=== PATIENT | female | born 1935 | race Caucasian/White ===

== ENCOUNTER 2019-09-13 08:00 | Outpatient (CLI) | payer MEDICARE, OTHER, SELFPAY ==
--- NOTE | 2019-09-13 | XR_ITS ---
WS: [id number] RIGHT HIP HISTORY: RT HIP PAIN X 1 MONTH COMPARISON: 01/05/2019 Right hip: No acute fracture or dislocation. Prior RIGHT hip arthroplasty. No lucency around the hard kendall. Femoral head component situated centrally within the acetabular component. XR/XR hip RT 2-3V wo/w pel* [id number] IMPRESSION: 1. No hip fracture. 2. Prior RIGHT hip arthroplasty with no evidence for loosening.
== END 2019-09-13 08:01 | disposition home or self-care (01) ==
LOC: RADOUTREAD 11:37
PROVIDERS: Family Provider Internal Medicine; PCP Internal Medicine; Visit Provider Internal Medicine
DX: Z01.89 Encounter for other specified special examinations (principal)

== ENCOUNTER 2020-02-07 10:28 | Outpatient (CLI) | payer MEDICARE, OTHER, SELFPAY ==
--- NOTE | 2020-02-07 10:49 | MR_ITS ---
WS: [id number] MRI LUMBAR SPINE NONCONTRAST HISTORY: LUMBAR BACK PAIN/RADICULOPATHY AFFECTING RT LOWER EXTREMITY COMPARISON: 04/01/2010 TECHNIQUE: Sagittal and axial multisequence imaging is submitted. Mild increase in the cervical lordosis and thoracic kyphosis. Degenerative spondylitic changes throug hout the cervical and thoracic spine with mild RIGHT convex thoracic scoliosis. Moderate LEFT convex curvature the lumbar spine. Mild straightening of the normal lordosis. Moderate degenerative disc space narrowing most significant at L3-4. S1 is partially lumbarized. No acute amina ow edema. There is mild anterior wedging of L1 from a prior compression fracture. Benign hemangioma i n T11. Conus terminates normally at L1-2 disc level. Quality of this examination is limited by patient motion artifact. L1-L2: Mild facet arthropathy. No stenosis. L2-L3: Diffuse annular disc bulging is asymmetric to the LEFT. LEFT foraminal broad-based disc protru luis enrique with effacement of fat. Encroachment upon the central canal by facet disease. Mild central and b ilateral subarticular recess stenosis. [id number] LEFT foraminal stenosis. L3-L4: Moderate annular disc bulging with facet and ligamentum flavum arthritis. Mild central and sub articular recess and RIGHT foraminal stenosis. Moderate LEFT foraminal stenosis. L4-L5: Diffuse annular disc bulging. There is marked ligamentum flavum disease and facet arthritis. S evere central and bilateral subarticular recess stenosis with severe RIGHT foraminal stenosis and mod erate to severe LEFT foraminal stenosis. L5-S1: Diffuse annular disc bulging and osteophytic ridging. Moderate narrowing of the central canal and RIGHT foramen. Severe LEFT subarticular recess and LEFT foraminal stenosis. MR/MR lumbar spine wo con* [id number] IMPRESSION: 1. Moderate progression of spondylitic changes and stenosis throughout the lum bar spine since 04/01/2010. 2. Remote L1 compression fracture by 10%. 3. Severe central, bilateral subarticular recess and RIGHT foraminal stenosis at L4-5 with moderate to severe LEFT foraminal stenosis. 4. Severe LEFT subarticular recess and foraminal stenosis at L5-S1 and moderat e on the RIGHT. 5. Mild to moderate LEFT foraminal stenosis at L2-3 and L3-4.
== END 2020-02-07 10:29 | disposition home or self-care (01) ==
LOC: RADWPI 10:37
PROVIDERS: Family Provider Internal Medicine; PCP Internal Medicine; Visit Provider Internal Medicine
DX: M54.16 Radiculopathy, lumbar region (principal); M79.604 Pain in right leg; S32.019A Unspecified fracture of first lumbar vertebra, initial encounter for closed fracture; M48.061 Spinal stenosis, lumbar region without neurogenic claudication; M48.07 Spinal stenosis, lumbosacral region
CPT/HCPCS: 72148

== ENCOUNTER 2020-08-18 11:28 | Emergency (ER) | payer MEDICARE, OTHER, SELFPAY ==
[2020-08-18 11:34] VITALS: BP 197/118; PULSE 67; RESP 68; TEMP 36.9; O2SAT 100; BMI 24.0
--- NOTE | 2020-08-18 11:39 | XRR_ITS ---
PROCEDURE INFORMATION: Exam: XR Nasal Bones, Minimum of 3 Views, Complete Exam date and time: 08/18/2020 12:39 PM Age: 84 years old Clinical indication: Injury or trauma; Fall; Blunt trauma (contusions or hematomas); Nose; Additional info: Fall trauma TECHNIQUE: Imaging protocol: XR of the nasal bones, minimum of 3 views. Complete exam. COMPARISON: No relevant prior studies available. FINDINGS: Sinuses: The paranasal sinuses are clear. Nasal cavity/Septum: The bony nasal septum appears intact. Bones/joints: Comminuted nasal bone fracture. The anterior maxillary spine is intact. Soft tissues: Superficial soft tissue swelling overlying the bridge of the nose. XR/XR nasal bones min 3V [id number] IMPRESSION: Comminuted nasal bone fracture.
--- NOTE | 2020-08-18 11:39 | XRR_ITS ---
PROCEDURE INFORMATION: Exam: XR Right Knee Exam date and time: 08/18/2020 12:41 PM Age: 84 years old Clinical indication: Pain; Knee; Right; Additional info: Fall pain TECHNIQUE: Imaging protocol: XR Right knee. Views: 3 views. COMPARISON: No relevant prior studies available. FINDINGS: Bones/joints: No fracture. No dislocation. Mild degeneration of the patellofemoral joint compartment. There is chondrocalcinosis. No joint effusion. Soft tissues: No acute soft tissue abnormality. XR/XR knee RT 3V* [id number] IMPRESSION: No acute osseous abnormality.
--- NOTE | 2020-08-18 12:03 | ED_ITS ---
HPI - Fall General: Chief Complaint: Fall Stated Complaint: NOSE BLEED KNEE PAIN POST FALL Time Seen by Provider: 08/18/20 11:29 History of Present Illness: HPI Narrative: 84-year-old female presents to the emergency room with complaint of a fall. She is on Plavix she was leaning over to pick something up tried to catch herself on a post missed the post and went down landed on her face she has deformity to her nose and quite a bit of bleeding. She denies loss of consciousness she also has pain to her right knee previously had a right knee arthroplasty MD complaint: fall Onset (ago): minute(s) Fall from: chair Fall witnessed: yes, by family Loss of consciousness: None Prolonged down time: no Symptoms prior to fall: none Context: tripped/slipped Location of injury: face Severity: mild Quality: sharp and throbbing Associated symptoms-after fall: Denies abdominal pain, chest pain, confusion, difficulty walking, headache(s), hematuria, lightheadedness, neck pain, numbness, short of breath, vertigo or weakness Review of Systems Const: Denies: fever(s), chills, body aches, change in appetite, fatigue or malaise ENMT: Denies: throat pain, ear or mastoid pain, nasal discharge or nasal congestion Card: Denies: chest pain or lightheadedness Resp: Denies: dyspnea, productive cough or non-productive cough GI: Denies: abdominal pain : Denies: hematuria Musc: Denies: neck pain Skin/Breast: Denies: rash or pruritus Neuro: Denies: headache(s), difficulty walking, vertigo or confusion PFS ED PFSH: Medical History Arrhythmia ASHD (arteriosclerotic heart disease) Asymptomatic superficial varicosities of lower extremity, bilateral Benign essential hypertension Bilateral edema of lower extremity dependent mostly Bilateral hip pain Chronic obstructive pulmonary emphysema Diabetes Diastolic dysfunction Dilated aortic root [place], bilateral Intermittent palpitations Mixed hyperlipidemia 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 Poor compliance PVD (peripheral vascular disease) Vaginal prolapse Surgical History H/O: hysterectomy History of appendectomy History of cholecystectomy History of tonsillectomy S/P selective transsphenoidal pituitary adenomectomy Family History Other CAD (coronary artery disease) Cancer Diabetes Hypertension Stroke Social History Smoking and tobacco status: never smoked Alcohol intake: never Physical Exam Const: COMMON NORMALS: average body habitus, patient oriented x3 and alert GENERAL APPEARANCE: cooperative, comfortable, well kempt and well developed NUTRITIONAL APPEARANCE: obese ORIENTATION/CONSCIOUSNESS: Yes awake, Yes oriented to person and Yes oriented to place HENMT: COMMON NORMALS: normocephalic, EAC's normal, TM's normal bilaterally, Normal external nose present, moist oral mucous membranes and oropharynx normal HEAD & SCALP: normocephalic NOSE: Normal external nose present EXTERNAL AUDITORY CANAL: EAC's normal TYMPANIC MEMBRANE: TM's normal bilaterally MOUTH: Normal oral and palatal mucosa present, lip normal and tongue normal THROAT: posterior oropharynx normal and tonsils normal OTHER: Abrasion of the bridge of the nose with a small skin tear. Not actively bleeding initially and she rather small amount of blood from the nares this resolved spontaneously. X- ray shows nasal bone fracture with minimal displacement Eye: COMMON NORMALS: Equal, round and reactive pupils present, EOMs intact bilaterally, conjunctivae normal and no scleral icterus CONJUNCTIVA: Yes conjunctivae normal PUPIL: Yes Equal, round and reactive pupils present Neck/C-Spine: COMMON NORMALS: full ROM, no lymphadenopathy, supple, no meningeal signs and Thyroid normal THYROID: Thyroid normal and asymmetrical Lymph: LYMPHATIC: no lymphadenopathy noted Resp: COMMON NORMALS: normal respiratory effort, No retractions, No use of accessory muscles and clear to auscultation bilaterally AUSCULTATION: clear to auscultation bilaterally Cardio: COMMON NORMALS: regular rate and regular rhythm RATE: regular rate RHYTHM: regular rhythm HEART SOUNDS: no murmurs GI: COMMON NORMALS: Normal to inspection, nondistended, normoactive bowel sounds present, Soft to palpation and No hepatosplenomegaly present PALPATION: Yes Soft to palpation and Yes No hepatosplenomegaly present : COMMON NORMALS: Yes no CVA tenderness BLADDER/KIDNEY EXAM: Yes no CVA tenderness Back/Pelvis: COMMON NORMALS: no CVA tenderness LUMBAR SPINE/LOWER BACK: Yes normal to inspection Extremity: COMMON NORMALS: no clubbing, cyanosis or edema, no calf tenderness and no pedal edema Neuro: COMMON NORMALS: patient oriented x3 SENSORIUM/ORIENTATION: Yes alert, Yes oriented to person and Yes oriented to place MENINGEAL SIGNS: Yes no meningeal signs Psych: APPEARANCE: Yes well kempt Skin: COMMON NORMALS: no rashes or lesions noted and turgor normal GENERAL SKIN EXAM: no rashes or lesions noted and turgor normal Course Vital Signs: Vital signs: Vital Signs Temperature 98.5 F 08/18/20 13:19 Pulse Rate 73 08/18/20 13:19 Respiratory Rate 21 H 08/18/20 13:19 Blood Pressure 204/104 08/18/20 13:19 Pulse Oximetry 73 L 08/18/20 13:19 MDM - Fall MDM Narrative: Medical decision making narrative: Refer to ENT for follow-up of the nasal bone fracture. Reviewed the remaining findings with the patient labs otherwise unremarkable. Her initial fall was just she is reaching forward to something in a chair and reach for post to steady herself when she missed that she fell forward and landed basically without any defense on her face. She has some swelling there now but is otherwise doing okay will discharge home fo llow-up as needed Lab Data: Labs: Lab Results 08/18/20 08/18/20 Range/Units 12:00 12:00 WBC 6.3 (4.0-10.0) 10^3/ uL RBC 4.57 (4.1-5.3) 10^6/u L Hgb 13.3 (11.5-15.3) g/dL Hct 40.6 (37.0-47.0) % MCV 88.8 (81-99) fL MCH 29.1 (28.0-34.0) pg MCHC 32.8 (30.0-36.0) g/dL RDW 12.8 (12.1-15.1) % Plt Count 323 (130-400) 10^3/c mm MPV 9.0 (7.4-10.4) fL Neut % (Auto) 61.8 % Lymph % (Auto) 27.8 % [place] % (Auto) 7.2 % Eos % (Auto) 2.1 % Baso % (Auto) 0.6 % Neut # (Auto) 3.89 (1.8-7.7) 10^3/u L Lymph # (Auto) 1.8 (0.8-4.8) 10^3/u L [place] # (Auto) 0.5 (0.2-0.9) 10^3/u L Eos # (Auto) 0.1 (0.0-0.8) 10^3/u L Baso # (Auto) 0.0 (0.0-0.1) 10^3/u L Nucleated RBC % (a uto) 0 % Nucleated RBCs # 0.0 /100WBC Sodium 132 L (136-145) mmol/L Potassium 4.2 (3.5-5.1) mmol/L Chloride 96 L (98-107) mmol/L Carbon Dioxide 24 (22-29) mmol/L Anion Gap 16.2 (5-19) BUN 10 (8-23) mg/dL Creatinine 0.6 (0.5-0.9) mg/dL GFR Calculation Not Reportable Glucose 134 H (65-115) mg/dL Calculated Osmolal ity 275 L (285-295) mOsm/k g Calcium 10.4 (8.5-10.5) mg/dL Discharge Plan Discharge Patient Disposition: Home Clinical Impression: Fall, Fracture of nasal bone Condition: Stable Prescriptions: New mupirocin 2 % ointment 1 applic topical BID Qty: 15 RF: 0 No Action Lactobacillus acidophilus Capsule 500 mmu cells PO DAILY RF: 0 diclofenac sodium [Voltaren] 1 % gel 2 gm TOPICAL TID PRNRF: 0 alprazolam 0.25 mg tablet 0.25 mg PO .prn PRN (Reason: anxiety) RF: 0 metoprolol tartrate 25 mg tablet 12.5 mg PO DAILY RF: 0 lisinopril 40 mg tablet 40 mg PO DAILY 90 Days Qty: 90 RF: 3 (DME) Toe sleeve See Rx Instructions .Route .MEDSUPPLY Qty: 1 RF: 0 chlorthalidone 25 mg tablet See Rx Instructions .ROUTE .COMPLEX Qty: 90 RF: 3 potassium chloride 8 mEq capsule, extended release See Rx Instructions .ROUTE .COMPLEX Qty: 90 RF: 3 clopidogrel 75 mg tablet 75 mg PO DAILY Qty: 90 RF: 3 Discharge Orders: Discharge ED (Routine); Ordered 08/18/20 Ordered By: Anupam De Paz Referrals: Amrit Cornelius DO [Primary Care Provider] - Discharge Activity: Increase activity as tolerated Activity Restrictions/Additional Instructions: Case management will call for referral to ENT for follow-up on the nasal bone fracture Coding Level of Care Code ED [employer] 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
[2020-08-18 12:23] LABS: Basophils % 0.6 %; Eosinophils # 0.1 10^3/uL (0.0-0.8); Eosinophils % 2.1 %; Hematocrit 40.6 % (37.0-47.0); Hemoglobin 13.3 g/dL (11.5-15.3); Lymphocytes # 1.8 10^3/uL (0.8-4.8); Lymphocytes % 27.8 %; Mean Corpuscular HGB Conc 32.8 g/dL (30.0-36.0); Mean Corpuscular Hemoglobin 29.1 pg (28.0-34.0); Mean Corpuscular Volume 88.8 fL (81-99); Monocytes # 0.5 10^3/uL (0.2-0.9); Monocytes % 7.2 %; Neutrophils # 3.89 10^3/uL (1.8-7.7); Neutrophils % 61.8 %; Nucleated Red Blood Cells % 0 %; Platelet Count 323 10^3/cmm (130-400); Red Blood Count 4.57 10^6/uL (4.1-5.3); Red Cell Distribution Width 12.8 % (12.1-15.1); White Blood Count 6.3 10^3/uL (4.0-10.0)
[2020-08-18 12:26] VITALS: BP 198/120; PULSE 70; RESP 21; O2SAT 97
[2020-08-18 12:41] LABS: Anion Gap 16.2 (5-19); Blood Urea Nitrogen 10 mg/dL (8-23); Calcium 10.4 mg/dL (8.5-10.5); Carbon Dioxide 24 mmol/L (22-29); Chloride 96 mmol/L (98-107); Glucose 134 mg/dL (65-115); Osmolality Calculated 275 mOsm/kg (285-295); Potassium 4.2 mmol/L (3.5-5.1); Sodium 132 mmol/L (136-145)
--- NOTE | 2020-08-18 13:14 | PC.NURSE ---
xrays completed patient tolerated well
[2020-08-18 13:16] VITALS: BP 209/109; PULSE 73; RESP 21; O2SAT 97
[2020-08-18 13:19] VITALS: BP 204/104; PULSE 73; RESP 21; TEMP 36.9; O2SAT 73
--- NOTE | 2020-08-18 15:48 | DCPLANNER ---
airport manager had message to schedule a follow up appointment for patient with ENT. airport manager emailed patients information to both Sofía and Gladys at [facility] General Surgery. Patients information will be printed and reviewed. Clinic will call patient with appointment information.
--- NOTE | 2020-08-21 12:20 | DCPLANNER ---
Patient has a follow up appointment scheduled for Monday, August 24, 2020 at 1:[address] Chaparro. Clinic will call patient with appointment information.
--- NOTE | 2020-09-24 15:34 | DCPLANNER ---
Patient had a follow up appointment scheduled with ENT - patient did not attend appointment.
== END 2020-08-18 13:40 | disposition home or self-care (01) ==
PROVIDERS: Emergency Provider Family Medicine; PCP Internal Medicine
DX: S02.2XXA Fracture of nasal bones, initial encounter for closed fracture (principal); Z79.02 Long term (current) use of antithrombotics/antiplatelets; I10 Essential (primary) hypertension; E11.42 Type 2 diabetes mellitus with diabetic polyneuropathy; E78.2 Mixed hyperlipidemia; W18.39XA Other fall on same level, initial encounter
CPT/HCPCS: 12345; 70160; 73562; 80048; 85025; 99282; 99283

== ENCOUNTER → 2020-10-13 13:18 | Outpatient (BNVA) | payer MEDICARE, OTHER, SELFPAY | PROVIDERS: PCP Internal Medicine; Visit Provider Podiatrist Foot & Ankle Surgery | DX: M20.42 Other hammer toe(s) (acquired), left foot (principal); M20.12 Hallux valgus (acquired), left foot; M21.612 Bunion of left foot | CPT/HCPCS: 73630 ==

== ENCOUNTER 2020-11-05 11:03 | Emergency (ER) | payer MEDICARE, OTHER, SELFPAY ==
[2020-11-05 11:13] VITALS: BP 183/98; PULSE 63; RESP 22; TEMP 36.7; O2SAT 100; BMI 24.4
--- NOTE | 2020-11-05 11:26 | CT_ITS ---
WS: [id number] CT FACIAL BONES HISTORY: fell and hit left side of face TECHNIQUE: Images obtained from the supraorbital location through the mandible. Soft tissue and bone windows are reviewed. Coronal and sagittal reformats have also been submitted. DLP: 754.[address] scans at [facility] use at least one of these dose optimization techniques: automat ed exposure control; mA and/or kV adjustment per patient size (includes targeted exams where dose is matched to clinical indication); or iterative reconstruction. COMPARISON: None available. There is very minimal buckling of the LEFT lateral nasal bone suspicious but indeterminate for acute fracture. The buckling was not present in 2009. No zygomatic arch fracture. Hassan of the sinuses are intact. There is complete opacification of the LEFT maxillary sinus which is similar to the study of 2009. There is a small hematoma centered over the LEFT zygomatic arch and just lateral to the orbit. Upper cervical spine is negative. CT/CT facial bones wo con* [id number] IMPRESSION: 1. New minimal buckling of the LEFT nasal bone. This may be acute fracture. Ne w since 2008. 2. Otherwise no acute fractures are identified. 3. Small soft tissue hematoma centered over the LEFT zygomatic arch and latera l orbit.
--- NOTE | 2020-11-05 11:26 | CT_ITS ---
WS: [id number] CT HEAD NONCONTRAST HISTORY: fall and hit head TECHNIQUE: Contiguous axial imaging performed through the brain in 2.5 mm imaging. Bone and soft tiss ue windows. Sagittal and coronal reformats reviewed. All CT scans at [facility] use at ast one of these dose optimization techniques: automated exposure control; mA and/or kV adjustment pe r patient size (includes targeted exams where dose is matched to clinical indication); or iterative r econstruction. DLP: 812.14 mGy.cm COMPARISON: 01/05/2019 No acute intracranial hemorrhage, midline shift or mass effect. Mild atrophy and mild chronic microvascular ischemic changes. No new area of sulcal effacement. Parti ally calcified lesion in the LEFT temporal bone extends towards the temporal lobe measuring 8 mm. No interval change. Probably a calcified meningioma. Ventricles: Normal size with no hydrocephalus. Atherosclerotic changes within the intracranial carotid arteries. Paranasal sinuses: Increase fluid distending the LEFT sphenoid sinus. Mastoid air cells: Well pneumatized. Calvarium and scalp: No skull fracture. Small amount of erythema in the superior LEFT parietal calvar ium. No underlying fracture. CT/CT head wo con* [id number] IMPRESSION: 1. No acute intracranial hemorrhage or edema. 2. Mild cerebral atrophy. 3. Stable calcification in the LEFT middle cranial fossa is probably a meningi jigar. 4. Small LEFT parietal scalp hematoma.
--- NOTE | 2020-11-05 11:26 | CT_ITS ---
WS: [id number] CT CERVICAL SPINE HISTORY: fall and hit head TECHNIQUE: Contiguous 2.5 mm axial imaging performed through the entire cervical spine. Sagittal and coronal reformats also performed. All CT scans at [facility] use at least one of these do se optimization techniques: automated exposure control; mA and/or kV adjustment per patient size (inc ludes targeted exams where dose is matched to clinical indication); or iterative reconstruction. DLP: 357.84 mGy.cm COMPARISON: 11/20/2015 Mild increase in the cervical lordosis. Mild RIGHT curvature of the cervical spine. Lateral masses ar e aligned odontoid is intact. Craniocervical junction is normal. Facet joints are normally aligned. C alcification within the ligament surrounding the odontoid process. No fracture involving the odontoid process. Bilateral facet joint arthritis. No acute-appearing disc protrusions. There is moderate RIG HT foraminal stenosis at C4-5, C5-6 and C6-7. Upper lungs are clear. Mild atherosclerosis aorta. Heavy calcification noted within the region of the RIGHT thyroid. CT/CT cervical spin wo con* [id number] IMPRESSION: 1. No acute cervical spine fracture. 2. Mild degenerative disease and facet arthritis as described above.
--- NOTE | 2020-11-05 11:27 | ED_ITS ---
HPI - Fall General: Chief Complaint: Fall Stated Complaint: FALL Time Seen by Provider: 11/05/20 11:26 History of Present Illness: HPI Narrative: Patient is an 85-year-old female comes to the ED after having a fall. Patient says she got her foot caught under a rug in her home and fell forward. She says she hit the left side of her face and head on the ground. Her glasses broke patient has pain on left side of face, head and neck. Patient took some Tylenol before coming to the ED and says she does not need any meds for pain while here in the ED. Patient is currently on Plavix. Associated symptoms-after fall: Reports headache(s) and neck pain; Denies abdominal pain, chest pain or hematuria Review of Systems Const: Denies: fever(s), chills or fatigue Eyes: Denies: change in vision or eye discomfort ENMT: Denies: throat pain, odynophagia, nasal discharge or nasal congestion Card: Denies: chest pain, palpitations, edema, swelling of feet/ankles, dyspnea on exertion or orthopnea Resp: Denies: dyspnea, productive cough or non-productive cough GI: Denies: abdominal pain, nausea, vomiting, diarrhea, constipation or hematochezia : Denies: flank pain, dysuria or hematuria Musc: Reports: neck pain and back pain (Mid upper back); Denies: extremity swelling Skin/Breast: Reports: new lesions (Contusion above left eyebrow.); Denies: rash Neuro: Reports: headache(s); Denies: numbness in extremities or weakness in extremities [facility] ED PFSH: Medical History Arrhythmia ASHD (arteriosclerotic heart disease) Asymptomatic superficial varicosities of lower extremity, bilateral Benign essential hypertension Bilateral edema of lower extremity dependent mostly Bilateral hip pain Chronic obstructive pulmonary emphysema Diabetes Diastolic dysfunction Dilated aortic root Hammertoe, bilateral Intermittent palpitations Mixed hyperlipidemia 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 Poor compliance PVD (peripheral vascular disease) Vaginal prolapse Surgical History H/O: hysterectomy History of appendectomy History of cholecystectomy History of tonsillectomy S/P selective transsphenoidal pituitary adenomectomy Family History Other CAD (coronary artery disease) Cancer Diabetes Hypertension Stroke Social History Smoking and tobacco status: never smoked Alcohol intake: never Physical Exam Const: COMMON NORMALS: no acute distress, patient oriented x3, healthy appearing and alert GENERAL APPEARANCE: cooperative and comfortable HENMT: COMMON NORMALS: normocephalic HEAD & SCALP: normocephalic and contusion right frontal Head contusion size: 1 cm; no Mcguire's sign, no occipital foramen tenderness and no raccoon eyes FACE & SINUS: ecchymosis on the left periorbital (Above left eyebrow) NOSE: Normal septum present (no septum hematoma seen) MOUTH: Normal oral and palatal mucosa present THROAT: posterior oropharynx normal and uvula midline Eye: COMMON NORMALS: Equal, round and reactive pupils present and EOMs intact bilaterally PUPIL: Yes Equal, round and reactive pupils present Neck/C-Spine: COMMON NORMALS: supple GENERAL: Yes normal visual inspection CERVICAL SPINE: Yes pain with cervical ROM, Yes Cervical spine tenderness, Yes Paracervical muscle tenderness and Yes Trapezius muscle tenderness Resp: COMMON NORMALS: normal respiratory effort, No retractions, No use of accessory muscles and clear to auscultation bilaterally AUSCULTATION: clear to auscultation bilaterally Cardio: COMMON NORMALS: regular rate, regular rhythm, S1 normal heart sound present, S2 normal heart sound present, No gallops present (Cardio), No clicks present (Cardio), No murmurs present (Cardio) and Peripheral pulses 2+ throughout RATE: regular rate RHYTHM: regular rhythm HEART SOUNDS: S1 normal heart sound present and S2 normal heart sound present PERIPHERAL PULS ES: Peripheral pulses 2+ throughout GI: COMMON NORMALS: Normal to inspection, nondistended, normoactive bowel sounds present, Soft to palpation, non-tender and no masses PALPATION: Yes Soft to palpation : COMMON NORMALS: Yes no CVA tenderness BLADDER/KIDNEY EXAM: Yes no CVA tenderness Back/Pelvis: COMMON NORMALS: no CVA tenderness THORACIC SPINE/UPPER BACK: Yes thoracic spinal tenderness and Yes paraspinal muscle tenderness Extremity: COMMON NORMALS: normal to inspection and full ROM NARRATIVE EXTREMITY EXAM: Patient had no extremity pain or tenderness and had full range of motion in extremities upper and lower bilaterally. Patient had no tenderness in the left upper arm upon palpation or with any range of motion. Neuro: COMMON NORMALS: patient oriented x3, CN's II-XII intact bilaterally, moves all extremities, no focal motor deficits and no sensory deficits noted SENSORIUM/ORIENTATION: Yes alert SENSORY EXAM: Yes extremities (intact) MOTOR EXAM: 5/5 motor strength present throughout Skin: GENERAL SKIN EXAM: dry skin Course Vital Signs: Vital signs: Vital Signs Temperature 98.0 F 11/05/20 11:13 Pulse Rate 64 11/05/20 13:59 Respiratory Rate 14 11/05/20 13:59 Blood Pressure 154/83 11/05/20 13:59 Pulse Oximetry 98 11/05/20 13:59 MDM - Fall MDM Narrative: Medical decision making narrative: Patient is an 85-year-old female comes to the ED after having a fall and hitting left side of face and head. Denies any loss of consciousness. Patient's main complaint is neck and upper back pain. Patient has no pain to extremities. Patient appears in no acute distress or pain upon exam. She is alert and oriented x3 and neuro exam was normal. She has a contusion to her forehead and has some tenderness of her cervical spine and paracervical muscle tenderness. Nasal exam shows no septal hematoma seen. Tenderness upon palpation of thoracic spine para spinal muscle tenderness. Posterior aspect of left shoulder blade tender. CT of head and cervical spine showed no acute fractures or findings. CT of thoracic spine showed no acute fractures or findings. CT of facial bones showed nasal bone fracture. X-ray of left shoulder-showed possible hairline fracture of the metadiaphysis of the humerus, but only seen in 1 image. Clinically, patient is having no complaint of left arm pain and has full range of motion of left arm and has no tenderness to palpation of upper left arm. Due to patient having no clinical findings I think this x-ray finding is not accurate. Patient was discharged home and I placed an order with case management for patient to be referred to ear nose and throat doctor to reevaluate nasal fracture. Return to ED precautions given. Told patient to follow-up with her PCP as well in 7 to 10 days for reevaluation. Apply cold pack on neck back to help with symptoms and take [id number] Tylenol for pain. Patient understood and agreed with plan. Imaging Data^: CT Head: Attestation: I personally reviewed and interpreted this imaging study as follows: Radiologist's impression: [address] [place] [address] CT Scan Report Signed Patient: Cristi Vu Unit #: [id number] : 1935 Age/Sex: 85 / F ADM Date: 11/05/20 Loc: ER Room/Bed: Attending Dr: Ordering Provider/Ordering MD: Gustavo Contreras Date of Service: 11/05/20 Procedure(s): CT head wo con* [id number] Accession Number(s): [id number] Report Number: [id number] WS: [id number] CT HEAD NONCONTRAST HISTORY: fall and hit head TECHNIQUE: Contiguous axial imaging performed through the brain in 2.5 mm imaging. Bone and soft tissue windows. Sagittal and coronal reformats reviewed. All CT scans at [facility] use at least one of these dose optimization techniques: automated exposure control; mA and/or kV adjustment per patient size (includes targeted exams where dose is matched to clinical indication); or iterative reconstruction. DLP: 812.14 mGy.cm COMPARISON: 01/05/2019 No acute intracranial hemorrhage, midline shift or mass effect. Mild atrophy and mild chronic microvascular ischemic changes. No new area of sulcal effacement. Partially calcified lesion in the LEFT temporal bone extends towards the tempora l lobe measuring 8 mm. No interval change. Probably a calcified meningioma. Ventricles: Normal size with no hydrocephalus. Atherosclerotic changes within the intracranial carotid arteries. Paranasal sinuses: Increase fluid distending the LEFT sphenoid sinus. Mastoid air cells: Well pneumatized. Calvarium and scalp: No skull fracture. Small amount of erythema in the superior LEFT parietal calvarium. No underlying fracture. CT/CT head wo con* [id number] IMPRESSION: 1. No acute intracranial hemorrhage or edema. 2. Mild cerebral atrophy. 3. Stable calcification in the LEFT middle cranial fossa is probably a meningioma. 4. Small LEFT parietal scalp hematoma. Dictated By: Rosa Su DO Signed By: Rosa Su DO Signed Date/Time: 11/05/20 1216 DD/ [address]: Attestation: I personally reviewed and interpreted this imaging study as follows: Radiologist's impression: [facility] [address] [place] [address] CT Scan Report Signed Patient: Cristi Vu Unit #: [id number] : 1935 Age/Sex: 85 / F ADM Date: 11/05/20 Loc: ER Room/Bed: Attending Dr: Ordering Provider/Ordering MD: Gustavo Contreras Date of Service: 11/05/20 Procedure(s): CT thoracic spin wo con* [id number] Accession Number(s): [id number] Report Number: [id number] WS: [id number] CT THORACIC SPINE HISTORY: fall with back pain TECHNIQUE: Contiguous 2.5 mm axial images are reviewed to thoracic spine. Images are reformatted in sagittal and coronal planes. All CT scans at [facility] use at least one of these dose optimization techniques: automated exposure control; mA and/or kV adjustment per patient size (includes targeted exams where dose is matched to clinical indication); or iterative reconstruction. DLP: 815.72 mGy.cm COMPARISON: MRI 01/27/2014. Radiograph 11/20/2015 Mild RIGHT curvature thoracic spine and increase in the kyphosis. Bones are mildly osteopenic. There is very mild anterior wedging of T5, T6, T7 and T8. There is mild anterior wedging was also identified in 2016. No retropulsion of the vertebral bodies. No pedicle or transverse process fractures. No compromise of the central canal. No paravertebral soft tissue hematoma. There is additional mild anterior wedging of L1 which was present on the prior lumbar spine of 02/07/2020. Mild atherosclerosis throughout the thoracic aorta. No acute appearing disc protrusions. CT/CT thoracic spin wo con* [id number] IMPRESSION: 1. No acute thoracic spine fractures identified. 2. Mild stable anterior compression fractures involving T5, T6, T7, T8 and L1. Dictated By: Rosa Su DO Signed By: Rosa Su DO Signed Date/Time: 11/05/20 1237 DD/ [address] [address] [address] Scan Report Signed Patient: Cristi Vu Unit #: [id number] : 1935 Age/Sex: 85 / F ADM Date: 11/05/20 Loc: ER Room/Bed: Attending Dr: Ordering Provider/Ordering MD: Gustavo Contreras Date of Service: 11/05/20 Procedure(s): CT cervical spin wo con* [id number] Accession Number(s): [id number] Report Number: [id number] WS: [id number] CT CERVICAL SPINE HISTORY: fall and hit head TECHNIQUE: Contiguous 2.5 mm axial imaging performed through the entire cervical spine. Sagittal and coronal reformats also performed. All CT scans at [facility] use at least one of these dose optimization techniques: automated exposure control; mA and/or kV adjustment per patient size (includes targeted exams where dose is matched to clinical indication); or iterative reconstruction. DLP: 357.84 mGy.cm COMPARISON: 11/20/2015 Mild increase in the cervical lordosis. Mild RIGHT curvature of the cervical spine. Lateral masses are aligned odontoid is intact. Craniocervical junction is normal. Facet joints are normally aligned. Calcification within the ligament surrounding the odontoid process. No fracture involving the odontoid process. Bilateral facet joint arthritis. No acute-appearing disc protrusions. There is moderate RIGHT foraminal stenosis at C4-5, C5-6 and C6-7. Upper lungs are clear. Mild atherosclerosis aorta. Heavy calcification noted within the region of the RIGHT thyroid. CT/CT cervical spin wo con* [id number] IMPRESSION: 1. No acute cervical spine fracture. 2. Mild degenerative disease and facet arthritis as described above. Dictated By: Rosa Su DO Signed By: Rosa Su DO Signed Date/Time: 11/05/20 1224 DD/ [address] [address] [address] Scan Report Signed Patient: Cristi Vu Unit #: [id number] : 1935 Age/Sex: 85 / F ADM Date: 11/05/20 Loc: ER Room/Bed: Attending Dr: Ordering Provider/Ordering MD: Gustavo Contreras Date of Service: 11/05/20 Procedure(s): CT facial bones wo con* [id number] Accession Number(s): [id number] Report Number: [id number] WS: [id number] CT FACIAL BONES HISTORY: fell and hit left side of face TECHNIQUE: Images obtained from the supraorbital location through the mandible. Soft tissue and bone windows are reviewed. Coronal and sagittal reformats have also been submitted. DLP: 754.[address] scans at [facility] use at least one of these dose optimization techniques: automated exposure control; mA and/or kV adjustment per patient size (includes targeted exams where dose is matched to clinical indication); or iterative reconstruction. COMPARISON: None available. There is very minimal buckling of the LEFT lateral nasal bone suspicious but indeterminate for acute fracture. The buckling was not present in 2008. No zygomatic arch fracture. Hassan of the sinuses are intact. There is complete opacification of the LEFT maxillary sinus which is similar to the study of 2008. There is a small hematoma centered over the LEFT zygomatic arch and just lateral to the orbit. Upper cervical spine is negative. CT/CT facial bones wo con* [id number] IMPRESSION: 1. New minimal buckling of the LEFT nasal bone. This may be acute fracture. New since 2008. 2. Otherwise no acute fractures are identified. 3. Small soft tissue hematoma centered over the LEFT zygomatic arch and lateral orbit. Dictated By: Rosa Su DO Signed By: Rosa Su DO Signed Date/Time: 11/05/20 1220 DD/ 1216 Xray Ortho: Attestation: I personally reviewed and interpreted this imaging study as follows: Radiologist's impression: Cedric Mar DOAddendum Signed By: Lucas Cox Date/Time:11/06/20 0831Addendum Cosigned By: WS: [id number] Exam: XR shoulder LT min 2V* [id number] Date/Time of Exam: 11/05/2020 12:02 PM Reason For Exam: fall with shoulder pain Comparison 01/18/2010. Questionable hairline fracture in the upper metadiaphysis of the humerus. This is seen only on one projection and is an equivocal finding. No other sign of fracture. Mild AC joint DJD. Normal soft tissues. XR/XR shoulder LT min 2V* [id number] IMPRESSION: 1. Questionable hairline fracture of the upper metadiaphysis of the humerus. This is seen only on a single projection and is an equivocal finding. If the patient remains clinically symptomatic in this region follow-up imaging in 7-10 days might be helpful. Dictated By:Cedric Mar, DOSigned By:Cedric Mar, DOSigned Date/Time:11/05/20 1311DD/ 1306 Discharge Plan Discharge Patient Disposition: Home Clinical Impression: Neck and shoulder pain Fall as cause of accidental injury at home as place of occurrence Qualifiers: Encounter type: initial encounter Qualified Code(s): W19.XXXA - Unspecified fall, initial encounter Closed fracture nasal bone Qualifiers: Encounter type: initial encounter Qualified Code(s): S02.2XXA - Fracture of nasal bones, initial encounter for closed fracture Condition: Stable Prescriptions: No Action diclofenac sodium [Voltaren] 1 % gel 2 - 4 gm TOPICAL PRN RF: 0 alprazolam 0.25 mg tablet 0.25 mg PO .prn PRN (Reason: anxiety) RF: 0 metoprolol tartrate 25 mg tablet 12.5 mg PO BID RF: 0 (DME) Toe sleeve See Rx Instructions .Route .MEDSUPPLY Qty: 1 RF: 0 (DME) Diabetic shoes See Rx Instructions .ROUTE .MEDSUPPLY Qty: 1 RF: 0 amlodipine 2.5 mg tablet 2.5 mg PO EVERY OTHER DAY RF: 0 levothyroxine 50 mcg tablet 50 mcg PO QAM RF: 0 Probiotic Pearls 15 mg (1 billion cell) Capsule,Delayed Release(Dr/Ec) 1 cap PO DAILY RF: 0 Aspercreme (lidocaine HCl) 4 % Cream 1 applic topical PRN RF: 0 echinacea 1 cap PO PRN RF: 0 magnesium 1 tab PO DAILY RF: 0 milk thistle 1 cap PO PRN RF: 0 potassium chloride 8 mEq capsule, extended release 8 meq PO QAM RF: 0 clopidogrel 75 mg tablet 75 mg PO QAM RF: 0 chlorthalidone 25 mg tablet 25 mg PO DAILY RF: 0 lisinopril 40 mg tablet 40 mg PO QAM RF: 0 Liquid Multivitamins See Rx Instructions .ROUTE .COMPLEX RF: 0 Discharge Orders: Discharge ED (Routine); Ordered 11/05/20 Ordered By: Gustavo Contreras Referrals: Amrit Cornelius DO [Primary Care Provider] - Discharge Diet: Regular Discharge Activity: Increase activity as tolerated Patient Instructions: Nasal Fracture (ED), Fall Prevention for Older Adults (ED), Fall Prevention (ED) Activity Restrictions/Additional Instructions: Follow-up with PCP as directed in 7 to 10 days for reevaluation. Case management will be contacting the next several days set up appointment with ENT doctor. Continue taking all home medications as prescribed. Apply cold pack or heat on neck and back to help with symptoms. Rest and take Tylenol to help with pain. Return to the ER or your medical provider if condition worsens. Please read and understand discharge instructions. If any questions, please ask. Coding Level of Care Code ED Gravel Inspector for Blaire Fwd Exam Comprehensive
[2020-11-05 11:35] VITALS: BP 199/86; PULSE 66; RESP 16; O2SAT 99
--- NOTE | 2020-11-05 11:48 | CT_ITS ---
WS: [id number] CT THORACIC SPINE HISTORY: fall with back pain TECHNIQUE: Contiguous 2.5 mm axial images are reviewed to thoracic spine. Images are reformatted in s agittal and coronal planes. All CT scans at [facility] use at least one of these dose opt imization techniques: automated exposure control; mA and/or kV adjustment per patient size (includes targeted exams where dose is matched to clinical indication); or iterative reconstruction. DLP: 815.72 mGy.cm COMPARISON: MRI 01/27/2014. Radiograph 11/20/2015 Mild RIGHT curvature thoracic spine and increase in the kyphosis. Bones are mildly osteopenic. There is very mild anterior wedging of T5, T6, T7 and T8. There is mild anterior wedging was also jose ntified in 2016. No retropulsion of the vertebral bodies. No pedicle or transverse process fractures. No compromise of the central canal. No paravertebral soft tissue hematoma. There is additional mild anterior wedging of L1 which was present on the prior lumbar spine of 020. Mild atherosclerosis throughout the thoracic aorta. No acute appearing disc protrusions. CT/CT thoracic spin wo con* [id number] IMPRESSION: 1. No acute thoracic spine fractures identified. 2. Mild stable anterior compression fractures involving T5, T6, T7, T8 and L1.
--- NOTE | 2020-11-05 11:49 | XR_ITS ---
WS: [id number] Exam: XR shoulder LT min 2V* [id number] Date/Time of Exam: 11/05/2020 12:02 PM Reason For Exam: fall with shoulder pain Comparison 01/18/2010. Questionable hairline fracture in the upper metadiaphysis of the humerus. This is seen only on one pr ojection and is an equivocal finding. No other sign of fracture. Mild AC joint DJD. Normal soft tissu es. XR/XR shoulder LT min 2V* [id number] IMPRESSION: 1. Questionable hairline fracture of the upper metadiaphysis of the humerus. Th is is seen only on a single projection and is an equivocal finding. If the alyssa ent remains clinically symptomatic in this region follow-up imaging in 7-10 day s might be helpful.
--- NOTE | 2020-11-05 13:21 | PC.PHAR ---
pt states she takes care of her own medications-pt states she hasnt started taking her chlorthalidone ext med history shows last filled on 07/13/20 90d/s-pt states she is still taking metoprolol tartrate 12.5mg bid ext med history shows last filled on 04/17/20 90d/s for 25mg daily pt states she is almost out -pt states she takes norvasc 2.5mg every other day-ext med history shows filled as 2.5mg po daily on 09/24/20 90d/s-
[2020-11-05 13:59] VITALS: BP 154/83; PULSE 64; RESP 14; O2SAT 98
--- NOTE | 2020-11-06 08:35 | PC.NURSE ---
questionable reading on xray from radiologist. at ER physician request-contact Pt to come back in for more examination today. Pt states she will find a ride and get to ER as soon as she is able
--- NOTE | 2020-11-09 11:25 | DCPLANNER ---
Addendum entered by Deonna Ponce 11/11/20 11:33: Sheyla from the ENT clinic emailed cyanide case hardener stating that when clinic contacted patient to schedule the appointment that patient declined appointment at this time. Original Note: manager route had message to schedule a follow up appointment for patient with ENT. manager route emailed patients information to Sofía Carrion and Gladys at [facility] [place], ENT. Patients information will be printed and reviewed. Clinic will call patient with appointment information.
== END 2020-11-05 13:59 | disposition home or self-care (01) ==
PROVIDERS: Emergency Provider Physician Assistant; PCP Internal Medicine
DX: S02.2XXA Fracture of nasal bones, initial encounter for closed fracture (principal); M54.2 Cervicalgia; M25.512 Pain in left shoulder; Z79.02 Long term (current) use of antithrombotics/antiplatelets; I10 Essential (primary) hypertension; J43.9 Emphysema, unspecified; E78.2 Mixed hyperlipidemia; E11.42 Type 2 diabetes mellitus with diabetic polyneuropathy; W18.09XA Striking against other object with subsequent fall, initial encounter
CPT/HCPCS: 70450; 70486; 72125; 72128; 73030; 99283

== ENCOUNTER 2020-11-06 09:38 | Emergency (ER) | payer MEDICARE, OTHER, SELFPAY ==
[2020-11-06 09:56] VITALS: BP 157/82; PULSE 65; RESP 16; TEMP 36.5; O2SAT 99; BMI 24.4
--- NOTE | 2020-11-06 10:09 | XR_ITS ---
WS: [id number] Exam: XR shoulder LT min 2V* [id number] Date/Time of Exam: 11/06/2020 10:09 AM Reason For Exam: reimage humerus do to findings from yesterday Comparison 11/05/2020. No acute fracture or dislocation noted. The questionable hairline fracture identified on the exam of 11/05/2020 is not seen on today's study. Mild DJD of the AC joint. XR/XR shoulder LT min 2V* [id number] IMPRESSION: 1. No sign of fracture identified.
--- NOTE | 2020-11-06 10:09 | XR_ITS ---
WS: [id number] Exam: [place] [id number] Date/Time of Exam: 11/06/2020 10:09 AM Reason For Exam: reimage humerus do to findings from yesterday Exam: [place] [id number] Date/Time of Exam: 11/06/2020 10:09 AM Reason For Exam: reimage humerus do to findings from yesterday No acute fracture or dislocation. Normal soft tissues. The previously reported questionable hairline fracture of the upper humerus reported on 11/05/2020 is not seen on this exam. XR/[place] [id number] IMPRESSION: 1. No humeral fracture noted. These results were phoned to Dr. De Paz, the attending ER physician at 11:05 AM 11/06/2020.
--- NOTE | 2020-11-06 10:09 | ED_ITS ---
HPI - Recheck/Abnormal Lab/Rx General: Chief Complaint: Recheck/Abnormal Lab/Rx Stated Complaint: RECHECK Time Seen by Provider: 11/06/20 09:39 History of Present Illness: HPI narrative: Patient is a 85-year-old female comes back to the ED to get repeat imaging of the left arm. Review of Systems Const: Denies: fever(s), chills or fatigue Eyes: Denies: change in vision or eye discomfort ENMT: Denies: throat pain, odynophagia, nasal discharge or nasal congestion Card: Denies: chest pain, palpitations, edema, swelling of feet/ankles, dyspnea on exertion or orthopnea Resp: Denies: dyspnea, productive cough or non-productive cough GI: Denies: abdominal pain, nausea, vomiting, diarrhea, constipation or hematochezia : Denies: flank pain, dysuria or hematuria Musc: Denies: neck pain, back pain or extremity swelling Skin/Breast: Denies: rash or new lesions Neuro: Denies: headache(s), numbness in extremities or weakness in extremities PFSH ED PFSH: Medical History Arrhythmia ASHD (arteriosclerotic heart disease) Asymptomatic superficial varicosities of lower extremity, bilateral Benign essential hypertension Bilateral edema of lower extremity dependent mostly Bilateral hip pain Chronic obstructive pulmonary emphysema Diabetes Diastolic dysfunction Dilated aortic root Hammertoe, bilateral Intermittent palpitations Mixed hyperlipidemia 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 Poor compliance PVD (peripheral vascular disease) Vaginal prolapse Surgical History H/O: hysterectomy History of appendectomy History of cholecystectomy History of tonsillectomy S/P selective transsphenoidal pituitary adenomectomy Family History Other CAD (coronary artery disease) Cancer Diabetes Hypertension Stroke Social History Smoking and tobacco status: never smoked Alcohol intake: never Physical Exam Const: COMMON NORMALS: no acute distress, patient oriented x3 and alert GENERAL APPEARANCE: cooperative and comfortable HENMT: COMMON NORMALS: normocephalic HEAD & SCALP: normocephalic MOUTH: Normal oral and palatal mucosa present THROAT: posterior oropharynx normal and uvula midline Neck/C-Spine: COMMON NORMALS: supple GENERAL: Yes normal visual inspection Resp: COMMON NORMALS: normal respiratory effort, No retractions, No use of accessory muscles and clear to auscultation bilaterally AUSCULTATION: clear to auscultation bilaterally Cardio: COMMON NORMALS: regular rate, regular rhythm, S1 normal heart sound p resent, S2 normal heart sound present, No gallops present (Cardio), No clicks present (Cardio), No murmurs present (Cardio) and Peripheral pulses 2+ throughout RATE: regular rate RHYTHM: regular rhythm HEART SOUNDS: S1 normal heart sound present and S2 normal heart sound present PERIPHERAL PULSES: Peripheral pulses 2+ throughout GI: COMMON NORMALS: Normal to inspection, nondistended, normoactive bowel sounds present, Soft to palpation, non-tender and no masses PALPATION: Yes Soft to palpation : COMMON NORMALS: Yes no CVA tenderness BLADDER/KIDNEY EXAM: Yes no CVA tenderness Back/Pelvis: COMMON NORMALS: no CVA tenderness Extremity: COMMON NORMALS: normal to inspection and full ROM NARRATIVE EXTREMITY EXAM: Patient continues to have no pain in upper or lower extremities bilaterally. She has full range of motion in upper extremities and in particular has no pain in left arm with range of motion. Has no pain with palpation to upper left arm. Neurovascular intact distally. Neuro: COMMON NORMALS: patient oriented x3 and moves all extremities SENSORIUM/ORIENTATION: Yes alert Course Vital Signs: Vital signs: Vital Signs Temperature 97.7 F 11/06/20 09:56 Pulse Rate 65 11/06/20 09:56 Respiratory Rate 16 11/06/20 09:56 Blood Pressure 157/82 11/06/20 09:56 Pulse Oximetry 99 11/06/20 09:56 MDM - Recheck/Abnormal Lab/Rx MDM Narrative: Medical decision making narrative: Patient is a 85-year-old female that was called back to the ED to get some brain imaging done due to a equivocal finding on left humerus on x-ray done yesterday. Patient still has no pain in left arm and has full range of motion in left arm on exam. Further imaging of left humerus was ordered to reevaluate previous x-ray findings. Left shoulder and left humerus x-ray were done and no fractures were seen. Patient was discharged back home and told to follow-up with PCP in 7 to 10 days for reevaluation. Return to ED precautions given. Patient understood agree with plan. Imaging Data^: Xray Ortho: Attestation: I personally reviewed and interpreted this imaging study as fo llows: Radiologist's impression: [employer] [address] [place] [address]. [place] [address] XRay Report Signed Patient: Cristi Vu Unit #: [id number] : 1935 Age/Sex: 85 / F ADM Date: 11/06/20 Loc: ER Room/Bed: Attending Dr: Ordering Provider/Ordering MD: Gustavo Contreras Date of Service: 11/06/20 Procedure(s): [place] [address] Accession Number(s): [id number] Report Number: [id number] WS: [id number] Exam: [place] [address] Date/Time of Exam: 11/06/2020 10:09 AM Reason For Exam: reimage humerus do to findings from yesterday Exam: [place] [id number] Date/Time of Exam: 11/06/2020 10:09 AM Reason For Exam: reimage humerus do to findings from yesterday No acute fracture or dislocation. Normal soft tissues. The previously reported questionable hairline fracture of the upper humerus reported on 11/05/2020 is not seen on this exam. XR/[place] [id number] IMPRESSION: 1. No humeral fracture noted. These results were phoned to Dr. De Paz, the attending ER physician at 11:05 AM 11/06/2020. Dictated By: Cedric Mar DO Signed By: Cedric Mar DO Signed Date/Time: 11/06/20 1108 DD/ [address] [employer] [place] [address] XRay Report Signed Patient: Cristi Vu Unit #: [id number] : 1935 Age/Sex: 85 / F ADM Date: 11/06/20 Loc: ER Room/Bed: Attending Dr: Ordering Provider/Ordering MD: Gustavo Contreras Date of Service: 11/06/20 Procedure(s): XR shoulder LT min 2V* 27051 Accession Number(s): [id number] Report Number: [id number] WS: [id number] Exam: XR shoulder LT min 2V* [id number] Date/Time of Exam: 11/06/2020 10:09 AM Reason For Exam: reimage humerus do to findings from yesterday Comparison 11/05/2020. No acute fracture or dislocation noted. The questionable hairline fracture identified on the exam of 11/05/2020 is not seen on today's study. Mild DJD of the AC joint. XR/XR shoulder LT min 2V* [id number] IMPRESSION: 1. No sign of fracture identified. Dictated By: Cedric Mar DO Signed By: Cedric Mar DO Signed Date/Time: 11/06/20 1105 DD/ 1103 Discharge Plan Discharge Patient Disposition: Home Clinical Impression: Equivocal imaging test findings, Normal result on radiologic exam Condition: Stable Prescriptions: No Action diclofenac sodium [Voltaren] 1 % gel 2 - 4 gm TOPICAL PRN RF: 0 alprazolam 0.25 mg tablet 0.25 mg PO .prn PRN (Reason: anxiety) RF: 0 metoprolol tartrate 25 mg tablet 12.5 mg PO BID RF: 0 (DME) Toe sleeve See Rx Instructions .Route .MEDSUPPLY Qty: 1 RF: 0 (DME) Diabetic shoes See Rx Instructions .ROUTE .MEDSUPPLY Qty: 1 RF: 0 amlodipine 2.5 mg tablet 2.5 mg PO EVERY OTHER DAY RF: 0 levothyroxine 50 mcg tablet 50 mcg PO QAM RF: 0 Probiotic Pearls 15 mg (1 billion cell) Capsule,Delayed Release(Dr/Ec) 1 cap PO DAILY RF: 0 Aspercreme (lidocaine HCl) 4 % Cream 1 applic topical PRN RF: 0 echinacea 1 cap PO PRN RF: 0 magnesium 1 tab PO DAILY RF: 0 milk thistle 1 cap PO PRN RF: 0 potassium chloride 8 mEq capsule, extended release 8 meq PO QAM RF: 0 clopidogrel 75 mg tablet 75 mg PO QAM RF: 0 chlorthalidone 25 mg tablet 25 mg PO DAILY RF: 0 lisinopril 40 mg tablet 40 mg PO QAM RF: 0 Liquid Multivitamins See Rx Instructions .ROUTE .COMPLEX RF: 0 Discharge Orders: Discharge ED (Routine); Ordered 11/06/20 Ordered By: Gustavo Contreras Referrals: Amrit Cornelius DO [Primary Care Provider] - Discharge Diet: Regular Discharge Activity: Resume usual activity Activity Restrictions/Additional Instructions: Follow-up with medical provider as directed. Continue taking all home medications as prescribed. Return to the ER or your medical provider if condition worsens. Please read and understand discharge instructions. If any questions, please ask. 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
== END 2020-11-06 11:42 | disposition home or self-care (01) ==
PROVIDERS: Emergency Provider Physician Assistant; PCP Internal Medicine
DX: R93.6 Abnormal findings on diagnostic imaging of limbs (principal); I10 Essential (primary) hypertension; E78.2 Mixed hyperlipidemia; E11.42 Type 2 diabetes mellitus with diabetic polyneuropathy
CPT/HCPCS: 73030; 73060; 99282

== ENCOUNTER → 2021-02-26 11:38 | Outpatient (BNVA) | payer MEDICARE, OTHER, SELFPAY | PROVIDERS: PCP Internal Medicine; Visit Provider Family Medicine | DX: R30.0 Dysuria (principal); R14.0 Abdominal distension (gaseous) | CPT/HCPCS: 81000; 87086 ==

== ENCOUNTER → 2021-03-16 12:18 | Outpatient (BNVA) | payer MEDICARE, OTHER, SELFPAY | PROVIDERS: PCP Family Medicine; Visit Provider Internal Medicine Cardiovascular Disease | DX: I11.0 Hypertensive heart disease with heart failure (principal); I50.33 Acute on chronic diastolic (congestive) heart failure; R06.02 Shortness of breath; R07.9 Chest pain, unspecified; M79.602 Pain in left arm; R06.00 Dyspnea, unspecified; I25.10 Atherosclerotic heart disease of native coronary artery without angina pectoris; R60.0 Localized edema; E78.2 Mixed hyperlipidemia; I73.9 Peripheral vascular disease, unspecified | CPT/HCPCS: 80048; 83880 ==

== ENCOUNTER → 2021-03-30 09:20 | Outpatient (BNVA) | payer MEDICARE, OTHER, SELFPAY | PROVIDERS: PCP Family Medicine; Visit Provider Internal Medicine Cardiovascular Disease | DX: E11.42 Type 2 diabetes mellitus with diabetic polyneuropathy (principal); H81.10 Benign paroxysmal vertigo, unspecified ear; R06.02 Shortness of breath; R00.2 Palpitations; E03.9 Hypothyroidism, unspecified; I73.9 Peripheral vascular disease, unspecified; I50.9 Heart failure, unspecified | CPT/HCPCS: 80048; 80061; 83036; 83880; 84439; 84443 ==

== ENCOUNTER 2021-03-31 08:42 | Outpatient (CLI) | payer MEDICARE, OTHER, SELFPAY ==
[2021-03-31] MEDS: iohexol 300 mg/mL 50 mL Btl PO (08:55)
--- NOTE | 2021-03-31 10:30 | CT_ITS ---
WS: [id number] CT scan of the abdomen and pelvis with Oral and IV contrast. Additional two-dimensional coronal and s agittal reconstruction was performed. 03/31/2021 Clinical Data: llq pain / history of diverticulitis Comparison: CT abdomen and pelvis, 11/07/2015. DLP: 711.96 mGy-cm All CT scans at [facility] use at least one of these dose optimization techniques: automated e xposure control; mA and/or kV adjustment per patient size (includes targeted exams where dose is matc hed to clinical indication); or iterative reconstruction. Findings: The lower lungs show no nodules, masses or effusions. The liver, spleen, adrenal glands and pancreas are normal. The gallbladder is absent. The kidneys show equal bilateral contrast excretion with no cyst or masses. The abdominal aorta is normal in size. No appendicitis or diverticulitis is seen. Oral contrast is within the stomach, small bowel and colon . There are numerous sigmoid diverticula but no diverticulitis is seen. No abscess, adenopathy, ascit es, mass, obstruction or free air is seen. The bladder is unremarkable. The uterus is unremarkable. No inguinal hernia is seen. The lumbar spine shows osteoarthritis and degenerative disc narrowing. There is a right hip arthropla sty. CT/CT abdomen pelvis w con* [id number] Impression: 1. Negative for diverticulitis. 2. Numerous sigmoid diverticula. 3. Negative for acute intra-abdominal or pelvic abnormalities.
[2021-03-31] MEDS: iohexol 300 mg/mL 100 mL Btl IV (10:50)
== END 2021-03-31 08:43 | disposition home or self-care (01) ==
PROVIDERS: PCP Family Medicine; Visit Provider Family Medicine
DX: R10.32 Left lower quadrant pain (principal); Z87.19 Personal history of other diseases of the digestive system; K57.30 Diverticulosis of large intestine without perforation or abscess without bleeding
CPT/HCPCS: 74177; Q9967

== ENCOUNTER 2021-04-10 14:40 | Emergency (ER) | payer MEDICARE, OTHER, SELFPAY ==
[2021-04-10 14:59] VITALS: BP 168/83; PULSE 67; RESP 18; TEMP 36.4; O2SAT 98; BMI 23.3
--- NOTE | 2021-04-10 15:14 | XRR_ITS ---
PROCEDURE INFORMATION: Exam: XR Chest Exam date and time: 04/10/2021 3:14 PM Age: 85 years old Clinical indication: Prior surgery; Surgery type: Cad, stent x 1; Patient HX: Right-sided chest pain and persistent right lower abdominal shingle pain. TECHNIQUE: Imaging protocol: XR of the chest. Views: 1 view. Other technique: Frontal portable upright view of the chest. COMPARISON: CR XR ribs LT mn 3V w CXR1V [id number] 08/12/2020 10:57 AM FINDINGS: Lungs: Mild left lateral basilar linear subsegmental atelectasis/scarring. The lungs are otherwise clear bilaterally. The pulmonary vasculature is normal. Pleural spaces: No pleural effusion. No pneumothorax. Heart/Mediastinum: The heart is normal in size and contour. Mediastinum: Stable. Bones/joints: Diffuse osteopenia. XR/XR chest 1V portable [id number] IMPRESSION: No acute cardiopulmonary abnormality identified.
--- NOTE | 2021-04-10 16:04 | W.ED.GENADLT ---
Documented by User: Amy Adrian MD 04/13/21 01:45 HPI - General Adult General: Chief complaint: Skin/Abscess/Foreign Body Stated complaint: SHINGLES PAIN Time Seen by Provider: 04/10/21 14:49 History of Present Illness: HPI narrative: Patient is an 85-year-old female w/ hx CAD s/p stent x1 who presents the emergency room with complaints of right-sided chest pain and persistent right lower abdominal shingle pain. Patient says that she was diagnosed with shingles last Monday (8 days ago) at which point, was given acyclovir at the urgent care clinic. Since then, patient says that her lesion has not improved. Patient, since Monday, has also developed right-sided chest pain. Patient did not notice any chest wall lesions. Patient denies any fever/chills, eye complaints, neurological complaints, other issues. Patient denies any history of diabetes, transplant, HIV or immunocompromise. Onset: 8 days ago Duration:8 days Location:home Severity:moderate Review of Systems Narrative: Constitutional: No fever, no chills. HEENT: No vision changes CV: +R sided chest pain, no palpitations PULM: no cough, no dyspnea. GI: No abdominal pain, no N/V/D. : No dysuria MSKEL: +R lower abdominal shingles SKIN: No new rashes, no lesions. NEURO: No headache, no focal weakness. 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 Poor compliance PVD (peripheral vascular disease) Type 2 diabetes mellitus, without long-term current use of insulin Vaginal prolapse Surgical History H/O: hysterectomy History of appendectomy History of cholecystectomy History of hip surgery Right RAZIA History of tonsillectomy S/P coronary artery stent placement S/P selective transsphenoidal pituitary adenomectomy Family History Father CAD (coronary artery disease) Mother Cancer Chronic kidney disease (CKD) Sister Diabetes Other Hypertension Denies family history of Clotting disorder Dementia Suicide Anesthesia complication Bleeding disorder Lung disease Stroke Social History Smoking and tobacco status: never smoked Alcohol intake: never Household members: none Housing: Apartment Marital status: / Number of children: 5 Number of grandchildren: 8 Highest education level completed: 10th Grade service: No Current occupational status: retired Female Reproductive History: Date of last menstrual period: 10/01/20 Physical Exam Narrative: EXAM NARRATIVE: Head: Atraumatic Eyes: PERRL, conjunctiva without injection ENT: Mucous membrane moist NECK: Supple, ROM intact LUNGS: LCTAB, no crackles/rhonchi, +no R chest pain erythema or vesicles CV: RRR ABDOMEN: Soft, nontender in all quadrants, +R lower abdominal shingles with vesicles very tenderness to palpation EXTREMITY: Normal ROM SKIN: No rash or erythema NEURO: Awake and alert, no focal motor deficits PSYCH: Normal mood and affect Course Vital Signs: Vital signs: Vital Signs Temperature 97.5 F L 04/10/21 14:59 Pulse Rate 78 04/10/21 21:16 Respiratory Rate 18 04/10/21 21:16 Blood Pressure 144/88 04/10/21 21:16 Pulse Oximetry 98 04/10/21 21:16 MDM - General Adult MDM Narrative: Medical decision making narrative: Patient is 85-year-old female with history of CAD s/p stent x1 who presents the emergency room with worsening shingle pain and now with new onset of right-sided chest pain x1 day. On exam, patient is hemodynamically stable. Patient is noted to have a single lesion in the right lower abdomen. Given patient already has an established single dermatome, the new onset of R chest pain is concerning. We will evaluate for ACS today. Symptom has been going on for 5 days, will evaluate with only one set of troponin Troponin x2 within normal limit. EKG is nonischemic. X-ray negative for any acute findings. Patient received lidocaine patch for shingles pain. Pending second troponin. Lab Data: Labs: Lab Results 04/10/21 04/10/21 04/10/21 17:25 17:25 17:25 WBC 4.4 10^3/uL 10^3/ uL (4.0-10.0) RBC 4.60 10^6/uL 10^6 /uL (4.1-5.3) Hgb 13.3 g/dL g/dL (11.5-15.3) Hct 39.9 % % (37.0-47.0) MCV 86.7 fl fl (81-99) MCH 28.9 pg pg (28.0-34.0) MCHC 33.3 g/dL g/dL (30.0-36.0) RDW 13.2 % % (12.1-15.1) Plt Count 266 10^3/cmm 10^3 /cmm (130-400) MPV 8.9 fL fL (7.4-10.4) Neut % (Auto) 51.6 % % Lymph % (Auto) 37.0 % % Walsh % (Auto) 8.6 % % Eos % (Auto) 1.6 % % Baso % (Auto) 0.7 % % Neut # (Auto) 2.28 10^3/uL 10^3 /uL (1.8-7.7) Lymph # (Auto) 1.6 10^3/uL 10^3/ uL (0.8-4.8) Walsh # (Auto) 0.4 10^3/uL 10^3/ uL (0.2-0.9) Eos # (Auto) 0.1 10^3/uL 10^3/ uL (0.0-0.8) Baso # (Auto) 0.0 10^3/uL 10^3/ uL (0.0-0.1) Nucleated RBC % (a uto) 0 % % Nucleated RBCs # 0.0 /100WBC /100W BC Sodium 129 mmol/L L mmol /L (136-145) Potassium 4.5 mmol/L mmol/L (3.5-5.1) Chloride 94 mmol/L L mmol/ L (98-107) Carbon Dioxide 24 mmol/L mmol/L (22-29) Anion Gap 15.5 (5-19) BUN 12 mg/dL mg/dL (8-23) Creatinine 0.5 mg/dL mg/dL (0.5-0.9) GFR Calculation Not Reportable Glucose 114 mg/dL mg/dL (65-115) Calculated Osmolal ity 269 mOsm/kg L mOs m/kg (285-295) Calcium 10.5 mg/dL mg/dL (8.5-10.5) Troponin T Baselin e 11 ng/L H ng/L (0-10) Troponin T 120 Min poarch Delta Troponin T 04/10/21 19:45 WBC RBC Hgb Hct MCV MCH MCHC RDW Plt Count MPV Neut % (Auto) Lymph % (Auto) Walsh % (Auto) Eos % (Auto) Baso % (Auto) Neut # (Auto) Lymph # (Auto) Walsh # (Auto) Eos # (Auto) Baso # (Auto) Nucleated RBC % (a uto) Nucleated RBCs # Sodium Potassium Chloride Carbon Dioxide Anion Gap BUN Creatinine GFR Calculation Glucose Calculated Osmolal ity Calcium Troponin T Baselin e Troponin T 120 Min poarch 10.93 ng/L H ng/L (0-10) Delta Troponin T -0.07 ABS# L ABS# (0-10) Discharge Plan Discharge Patient Disposition: Home Clinical Impression: Chest pain Shingles Qualifiers: Herpes zoster complications: without complications Qualified Code(s): B02.9 - Zoster without complications Condition: Stable Prescriptions: New lidocaine 5 % adhesive patch,medicated 1 patch topical DAILY PRN (Reason: pain) 30 Days Qty: 30 RF: 0 carbamazepine 100 mg capsule, ER multiphase 12 hr 100 mg PO BID Qty: 30 RF: 0 hydrocodone-acetaminophen 5-325 mg tablet 1 tab PO Q8H PRN (Reason: pain) Qty: 10 RF: 0 No Action diclofenac sodium [Voltaren] 1 % gel 2 - 4 gm TOPICAL PRN RF: 0 alprazolam 0.25 mg tablet 0.25 mg PO .prn PRN (Reason: anxiety) RF: 0 metoprolol tartrate 25 mg tablet 12.5 mg PO BID RF: 0 (DME) Toe sleeve See Rx Instructions .Route .MEDSUPPLY Qty: 1 RF: 0 (DME) Diabetic shoes See Rx Instructions .ROUTE .MEDSUPPLY Qty: 1 RF: 0 meclizine 25 mg tablet 25 mg PO Q6H PRN (Reason: vertigo) Qty: 30 RF: 0 losartan 100 mg tablet 50 mg PO DAILY 30 Days Qty: 30 RF: 5 valacyclovir 1 gram tablet 1,000 mg PO TID 7 Days Qty: 21 RF: 0 amlodipine 5 mg tablet 5 mg PO DAILY Qty: 90 RF: 3 furosemide [Lasix] 20 mg tablet 20 mg PO DAILY Qty: 30 RF: 5 potassium chloride 8 mEq tablet extended release 8 meq PO DAILY Qty: 30 RF: 5 nitroglycerin [Nitrostat] 0.4 mg tablet, sublingual 0.4 mg sublingual Q5M PRN (Reason: chest pain) Qty: 50 RF: 5 levothyroxine 75 mcg tablet 75 mcg PO QAM Qty: 90 RF: 0 atorvastatin [Lipitor] 40 mg tablet 40 mg PO DAILY Qty: 30 RF: 5 Probiotic Pearls 15 mg (1 billion cell) Capsule,Delayed Release(Dr/Ec) 1 cap PO DAILY RF: 0 echinacea 1 cap PO PRN RF: 0 milk thistle 1 cap PO PRN RF: 0 clopidogrel 75 mg tablet 75 mg PO QAM RF: 0 Liquid Multivitamins See Rx Instructions .ROUTE .COMPLEX RF: 0 Discharge Orders: Discharge ED (Routine); Ordered 04/10/21 Ordered By: Richard Sharma Referrals: Lashawn Zaldivar DO [Primary Care Provider] - Discharge Diet: Advance as tolerated Discharge Activity: Resume usual activity Patient Instructions: Chest Pain (ED), Shingles (ED) Coding Level of Care Code ED Process Improvement Manager for Chg Fwd Documented by User: Richard Sharma DO 04/10/21 20:36 HPI - General Adult General: Chief complaint: Skin/Abscess/Foreign Body Stated complaint: SHINGLES PAIN Time Seen by Provider: 04/10/21 14:49 PFSH ED PFSH: Medical History (Updated 04/12/21 @ 01:45 by SHEREEN Craig) Acquired hypothyroidism Arrhythmia ASHD (arteriosclerotic heart disease) Asymptomatic superficial varicosities of lower extremity, bilateral Benign essential hypertension Bilateral edema of lower extremity dependent mostly Bilateral hip pain Chronic obstructive pulmonary emphysema Diabetes Diastolic dysfunction Dilated aortic root Diverticula of colon Hammertoe, bilateral Intermittent palpitations Mixed hyperlipidemia 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 Poor compliance PVD (peripheral vascular disease) Type 2 diabetes mellitus, without long-term current use of insulin Vaginal prolapse Surgical History H/O: hysterectomy History of appendectomy History of cholecystectomy History of hip surgery Right RAZIA History of tonsillectomy S/P coronary artery stent placement S/P selective transsphenoidal pituitary adenomectomy Family History Father CAD (coronary artery disease) Mother Cancer Chronic kidney disease (CKD) Sister Diabetes Other Hypertension Denies family history of Clotting disorder Dementia Suicide Anesthesia complication Bleeding disorder Lung disease Stroke Social History Smoking and tobacco status: never smoked Alcohol intake: never Household members: none Housing: Apartment Marital status: / Number of children: 5 Number of grandchildren: 8 Highest education level completed: 10th Grade service: No Current occupational status: retired Course Vital Signs: Vital signs: Vital Signs Temperature 97.5 F L 04/10/21 14:59 Pulse Rate 78 04/10/21 21:16 Respiratory Rate 18 04/10/21 21:16 Blood Pressure 144/88 04/10/21 21:16 Pulse Oximetry 98 04/10/21 21:16 MDM - General Adult MDM Narrative: Medical decision making narrative: 85-year-old female checked out to me by Dr. Adrian at shift change. This lady had a Trope of 11 on her initial. It did not change at 2 hours. Her chest pain seems nonischemic by history. Her biggest problem is shingles pain essentially. She will be given low-dose carbamazepine and pain medication for the shingles. She will follow up with her primary care physician Lab Data: Labs: Lab Results 04/10/21 04/10/21 04/10/21 17:25 17:25 17:25 WBC 4.4 10^3/uL 10^3/ uL (4.0-10.0) RBC 4.60 10^6/uL 10^6 /uL (4.1-5.3) Hgb 13.3 g/dL g/dL (11.5-15.3) Hct 39.9 % % (37.0-47.0) MCV 86.7 fl fl (81-99) MCH 28.9 pg pg (28.0-34.0) MCHC 33.3 g/dL g/dL (30.0-36.0) RDW 13.2 % % (12.1-15.1) Plt Count 266 10^3/cmm 10^3 /cmm (130-400) MPV 8.9 fL fL (7.4-10.4) Neut % (Auto) 51.6 % % Lymph % (Auto) 37.0 % % Walsh % (Auto) 8.6 % % Eos % (Auto) 1.6 % % Baso % (Auto) 0.7 % % Neut # (Auto) 2.28 10^3/uL 10^3 /uL (1.8-7.7) Lymph # (Auto) 1.6 10^3/uL 10^3/ uL (0.8-4.8) Walsh # (Auto) 0.4 10^3/uL 10^3/ uL (0.2-0.9) Eos # (Auto) 0.1 10^3/uL 10^3/ uL (0.0-0.8) Baso # (Auto) 0.0 10^3/uL 10^3/ uL (0.0-0.1) Nucleated RBC % (a uto) 0 % % Nucleated RBCs # 0.0 /100WBC /100W BC Sodium 129 mmol/L L mmol /L (136-145) Potassium 4.5 mmol/L mmol/L (3.5-5.1) Chloride 94 mmol/L L mmol/ L (98-107) Carbon Dioxide 24 mmol/L mmol/L (22-29) Anion Gap 15.5 (5-19) BUN 12 mg/dL mg/dL (8-23) Creatinine 0.5 mg/dL mg/dL (0.5-0.9) GFR Calculation Not Reportable Glucose 114 mg/dL mg/dL (65-115) Calculated Osmolal ity 269 mOsm/kg L mOs m/kg (285-295) Calcium 10.5 mg/dL mg/dL (8.5-10.5) Troponin T Baselin e 11 ng/L H ng/L (0-10) Troponin T 120 Min poarch Delta Troponin T 04/10/21 19:45 WBC RBC Hgb Hct MCV MCH MCHC RDW Plt Count MPV Neut % (Auto) Lymph % (Auto) Walsh % (Auto) Eos % (Auto) Baso % (Auto) Neut # (Auto) Lymph # (Auto) Walsh # (Auto) Eos # (Auto) Baso # (Auto) Nucleated RBC % (a uto) Nucleated RBCs # Sodium Potassium Chloride Carbon Dioxide Anion Gap BUN Creatinine GFR Calculation Glucose Calculated Osmolal ity Calcium Troponin T Baselin e Troponin T 120 Min poarch 10.93 ng/L H ng/L (0-10) Delta Troponin T -0.07 ABS# L ABS# (0-10) Discharge Plan Discharge Patient Disposition: Home Clinical Impression: Chest pain Shingles Qualifiers: Herpes zoster complications: without complications Qualified Code(s): B02.9 - Zoster without complications Condition: Stable Prescriptions: New lidocaine 5 % adhesive patch,medicated 1 patch topical DAILY PRN (Reason: pain) 30 Days Qty: 30 RF: 0 carbamazepine 100 mg capsule, ER multiphase 12 hr 100 mg PO BID Qty: 30 RF: 0 hydrocodone-acetaminophen 5-325 mg tablet 1 tab PO Q8H PRN (Reason: pain) Qty: 10 RF: 0 No Action diclofenac sodium [Voltaren] 1 % gel 2 - 4 gm TOPICAL PRN RF: 0 alprazolam 0.25 mg tablet 0.25 mg PO .prn PRN (Reason: anxiety) RF: 0 metoprolol tartrate 25 mg tablet 12.5 mg PO BID RF: 0 (DME) Toe sleeve See Rx Instructions .Route .MEDSUPPLY Qty: 1 RF: 0 (DME) Diabetic shoes See Rx Instructions .ROUTE .MEDSUPPLY Qty: 1 RF: 0 meclizine 25 mg tablet 25 mg PO Q6H PRN (Reason: vertigo) Qty: 30 RF: 0 losartan 100 mg tablet 50 mg PO DAILY 30 Days Qty: 30 RF: 5 valacyclovir 1 gram tablet 1,000 mg PO TID 7 Days Qty: 21 RF: 0 amlodipine 5 mg tablet 5 mg PO DAILY Qty: 90 RF: 3 furosemide [Lasix] 20 mg tablet 20 mg PO DAILY Qty: 30 RF: 5 potassium chloride 8 mEq tablet extended release 8 meq PO DAILY Qty: 30 RF: 5 nitroglycerin [Nitrostat] 0.4 mg tablet, sublingual 0.4 mg sublingual Q5M PRN (Reason: chest pain) Qty: 50 RF: 5 levothyroxine 75 mcg tablet 75 mcg PO QAM Qty: 90 RF: 0 atorvastatin [Lipitor] 40 mg tablet 40 mg PO DAILY Qty: 30 RF: 5 Probiotic Pearls 15 mg (1 billion cell) Capsule,Delayed Release(Dr/Ec) 1 cap PO DAILY RF: 0 echinacea 1 cap PO PRN RF: 0 milk thistle 1 cap PO PRN RF: 0 clopidogrel 75 mg tablet 75 mg PO QAM RF: 0 Liquid Multivitamins See Rx Instructions .ROUTE .COMPLEX RF: 0 Discharge Orders: Discharge ED (Routine); Ordered 04/10/21 Ordered By: Richard Sharma Referrals: Lashawn Zaldivar DO [Primary Care Provider] - Discharge Diet: Advance as tolerated Discharge Activity: Resume usual activity Patient Instructions: Chest Pain (ED), Shingles (ED) Coding Level of Care Code ED Process Improvement Manager for Blaire Coto
[2021-04-10 17:34] LABS: Basophils % 0.7 %; Eosinophils # 0.1 10^3/uL (0.0-0.8); Eosinophils % 1.6 %; Hematocrit 39.9 % (37.0-47.0); Hemoglobin 13.3 g/dL (11.5-15.3); Lymphocytes # 1.6 10^3/uL (0.8-4.8); Mean Corpuscular HGB Conc 33.3 g/dL (30.0-36.0); Mean Corpuscular Hemoglobin 28.9 pg (28.0-34.0); Mean Corpuscular Volume 86.7 fl (81-99); Mean Platelet Volume 8.9 fL (7.4-10.4); Monocytes # 0.4 10^3/uL (0.2-0.9); Monocytes % 8.6 %; Neutrophils # 2.28 10^3/uL (1.8-7.7); Neutrophils % 51.6 %; Nucleated Red Blood Cells % 0 %; Platelet Count 266 10^3/cmm (130-400); Red Cell Distribution Width 13.2 % (12.1-15.1); White Blood Count 4.4 10^3/uL (4.0-10.0)
[2021-04-10 17:55] VITALS: RESP 15
[2021-04-10 17:57] LABS: Anion Gap 15.5 (5-19); Blood Urea Nitrogen 12 mg/dL (8-23); Calcium 10.5 mg/dL (8.5-10.5); Carbon Dioxide 24 mmol/L (22-29); Chloride 94 mmol/L (98-107); Glucose 114 mg/dL (65-115); Osmolality Calculated 269 mOsm/kg (285-295); Potassium 4.5 mmol/L (3.5-5.1); Sodium 129 mmol/L (136-145)
[2021-04-10 17:59] LABS: Troponin(5th) Baseline 11 ng/L (0-10)
[2021-04-10] MEDS: lidocaine 5% Patch 1 PATCH TOPICAL (18:19)
[2021-04-10] MEDS: oxyCODONE-APAP 5-325 mg Tablet 1 TAB PO (19:22)
[2021-04-10 20:18] LABS: Troponin 5 2HR 10.93 ng/L (0-10)
[2021-04-10 20:19] LABS: Troponin 5 2HR Delta -0.07 ABS# (0-10)
[2021-04-10 21:16] VITALS: BP 144/88; PULSE 78; RESP 18; O2SAT 98
== END 2021-04-10 21:05 | disposition home or self-care (01) ==
PROVIDERS: Emergency Medicine; Emergency Provider Emergency Medicine; PCP Family Medicine
DX: R07.9 Chest pain, unspecified (principal); B02.9 Zoster without complications; Z79.02 Long term (current) use of antithrombotics/antiplatelets; I10 Essential (primary) hypertension; J43.9 Emphysema, unspecified; E78.2 Mixed hyperlipidemia; E11.42 Type 2 diabetes mellitus with diabetic polyneuropathy
CPT/HCPCS: 36415; 71045; 80048; 84484; 85025; 99283

== ENCOUNTER 2021-08-23 12:54 | Outpatient (CLI) | payer MEDICARE, OTHER, SELFPAY ==
--- NOTE | 2021-08-23 13:30 | USCV_ITS ---
Vu Cristi Age: 85 Gender: F : 1935 Exam Date: 08/23/2021 13:41 Ordering Phys: Shiela Steele MD ([email or web address]) Technologist: [place] [facility] [place]: [place]B BP: 134 / 73 HR: 65 Rhythm: Sinus Technical Quality: Adequate MEASUREMENTS (Male / Female) Normal Values 2D ECHO LV Diastolic Diameter PLAX 4.4 cm 4.2 - 5.9 / 3.9 - 5.3 cm LV Systolic Diameter PLAX 2.6 cm IVS Diastolic Thickness 1.0 cm 0.6 - 1.0 / 0.6 - 0.9 cm IVS Systolic Thickness 1.6 cm LVPW Diastolic Thickness 0.9 cm 0.6 - 1.0 / 0.6 - 0.9 cm LVPW Systolic Thickness 1.0 cm LVOT Diameter 2.0 cm LV Ejection Fraction 2D Teich 69.9 % LV Ejection Fraction MOD 2C 45.3 % LV Ejection Fraction 2C AL 47.0 % LA Diameter 3.9 cm LA Width 3.8 cm LA Height 4.8 cm RA Width 2.7 cm RA Height 4.3 cm Aorta at Sinotubular Diameter 2.5 cm M-MODE LV Diastolic Diameter MM 5.0 cm 4.2 - 5.9 / 3.9 - 5.3 cm LV Systolic Diameter MM 3.1 cm LV Ejection Fraction MM Teich 68.3 % IVS Diastolic Thickness MM 1.2 cm 0.6 - 1.0 / 0.6 - 0.9 cm IVS Systolic Thickness MM 1.4 cm LVPW Diastolic Thickness MM 1.1 cm 0.6 - 1.0 / 0.6 - 0.9 cm LVPW Systolic Thickness MM 1.6 cm RV Diastolic Diameter MM 1.2 cm Aortic Annulus Diameter 3.1 cm LA Ao Ratio MM 1.5 MV E Point Septal Separation 0.8 cm DOPPLER AV Peak Velocity 127.0 cm/s LVOT Peak Velocity 80.0 cm/s AV Area Cont Eq vti 2.1 cm squared AV Area Cont Eq pk 1.9 cm squared MV Area PHT 5.0 cm squared Mitral E to A Ratio 1.1 MV E' Velocity 59.0 cm/s Mitral E to MV E' Ratio 13.1 Mitral E to LV E' Lateral Ratio 13.2 Mitral E to LV E' Septal Ratio 12.9 TR Peak Velocity 218.7 cm/s TR Peak Gradient 19.1 mmHg TV Peak E Velocity 82.0 cm/s Right Atrial Pressure 3.0 mmHg Pulmonary Artery Systolic Pressu 22.1 mmHg RV Acceleration Time 0.1 s FINDINGS Left Ventricle Normal left ventricular size and systolic function, EF 55 %. No regional wall motion abnormalities. Right Ventricle The right ventricle is normal in size and function. Right Atrium The right atrium is normal in size. Left Atrium Mildly increased left atrial size. Mitral Valve Thickened mitral valve. Mild mitral annular calcification. Trace mitral valve regurgitation. Aortic Valve Thickened aortic valve. Tricuspid Valve Mild tricuspid valve regurgitation. Pulmonic Valve Pulmonic valve not well visualized. Pericardium Normal pericardium without effusion. Aorta Normal ascending aorta dimension. CONCLUSIONS Normal left ventricular size and systolic function, EF 55 %. No regional wall motion abnormalities. Thickened mitral valve. Mild mitral annular calcification. Trace mitral valve regurgitation. Mildly increased left atrial size. Mild tricuspid valve regurgitation. Thickened aortic valve. There is no pericardial effusion. There are no intracardiac masses. Compared to the study from 01/28/2016, there may not be a significant change Dr Shiela Steele MD [facility] (Electronically Signed) Final Date: 30 August 2021 18:50 S
== END 2021-08-23 12:55 | disposition home or self-care (01) ==
LOC: RAD 13:02
PROVIDERS: PCP Family Medicine; Visit Provider Internal Medicine Cardiovascular Disease
DX: R06.02 Shortness of breath (principal); R06.00 Dyspnea, unspecified; I08.3 Combined rheumatic disorders of mitral, aortic and tricuspid valves
CPT/HCPCS: 93306

== ENCOUNTER → 2021-09-20 14:30 | Outpatient (BNVA) | payer MEDICARE, OTHER, SELFPAY | PROVIDERS: PCP Family Medicine; Visit Provider Family Medicine | DX: E03.9 Hypothyroidism, unspecified (principal); N39.0 Urinary tract infection, site not specified; E83.52 Hypercalcemia; F41.9 Anxiety disorder, unspecified; Z68.22 Body mass index [BMI] 22.0-22.9, adult | CPT/HCPCS: 82310; 83970; 84443 ==

== ENCOUNTER → 2021-09-30 08:49 | Outpatient (BNVA) | payer MEDICARE, OTHER, SELFPAY | PROVIDERS: PCP Family Medicine; Visit Provider Nurse Practitioner Family | DX: I25.10 Atherosclerotic heart disease of native coronary artery without angina pectoris (principal); I10 Essential (primary) hypertension; R60.0 Localized edema | CPT/HCPCS: 99214 ==

== ENCOUNTER → 2021-11-23 09:35 | Outpatient (BNVA) | payer MEDICARE, OTHER, SELFPAY | PROVIDERS: PCP Family Medicine; Visit Provider Internal Medicine Cardiovascular Disease | DX: I25.10 Atherosclerotic heart disease of native coronary artery without angina pectoris (principal); E78.2 Mixed hyperlipidemia; R60.0 Localized edema; I73.9 Peripheral vascular disease, unspecified; E03.9 Hypothyroidism, unspecified; I12.9 Hypertensive chronic kidney disease with stage 1 through stage 4 chronic kidney disease, or unspecified chronic kidney disease; E11.22 Type 2 diabetes mellitus with diabetic chronic kidney disease; N18.9 Chronic kidney disease, unspecified; E83.52 Hypercalcemia; Z79.84 Long term (current) use of oral hypoglycemic drugs | CPT/HCPCS: 80048; 80061; 80076; 82310; 83036; 83970; 84443; 99214 ==

== ENCOUNTER → 2021-12-08 09:50 | Outpatient (BNVA) | payer MEDICARE, OTHER, SELFPAY | PROVIDERS: PCP Family Medicine; Referring Provider Family Medicine; Visit Provider Internal Medicine | DX: E21.0 Primary hyperparathyroidism (principal); E03.9 Hypothyroidism, unspecified; R10.9 Unspecified abdominal pain; Z87.81 Personal history of (healed) traumatic fracture | CPT/HCPCS: 83690; 99204 ==

== ENCOUNTER → 2021-12-13 14:25 | Outpatient (BNVA) | payer MEDICARE, OTHER, SELFPAY | PROVIDERS: PCP Family Medicine; Visit Provider Podiatrist Foot & Ankle Surgery | DX: L84 Corns and callosities (principal); I73.9 Peripheral vascular disease, unspecified; L60.3 Nail dystrophy; E11.42 Type 2 diabetes mellitus with diabetic polyneuropathy; M20.42 Other hammer toe(s) (acquired), left foot; M20.41 Other hammer toe(s) (acquired), right foot | CPT/HCPCS: 11055; 11721 ==

== ENCOUNTER 2022-01-11 08:38 | Emergency (ER) | payer MEDICARE, OTHER, SELFPAY ==
[2022-01-11] VITALS (12 sets, daily range): BP systolic 146–156; BP diastolic 67–77; PULSE 75–77; RESP 15; TEMP 36.6; O2SAT 95–100; BMI 22.3
--- NOTE | 2022-01-11 08:53 | CT_ITS ---
WS: [id number] CT ABDOMEN PELVIS TECHNIQUE: Noncontrast CT of the abdomen and pelvis with coronal and sagittal reformatted images. CLINICAL INFORMATION: lower abd pain, nausea COMPARISON: CT March 31, 2021 DLP: 850.[address] scans at [facility] use at least one of these dose optimization techniques: automated e xposure control; mA and/or kV adjustment per patient size (includes targeted exams where dose is matc hed to clinical indication); or iterative reconstruction. FINDINGS: Sigmoid diverticuli. Diffuse thickening of the sigmoid colon with surrounding inflammatory stranding compatible with acute diverticulitis. Small amount of free fluid in the pelvis. No drainable abscess or drainable fluid collection. Postoperative changes RIGHT RAZIA degrades images in the pelvis. Lung bases are well aerated. Prior cho lecystectomy. Prior hysterectomy. Normal GE junction. Small splenic cyst or hemangioma. Fatty atrophy of the pancreas. Splenic artery calcification. Normal caliber abdominal aorta. Moderate aortic calci fication. Adrenal glands are normal. No hydronephrosis in either kidney. Tiny fat-containing umbilica l hernia. Chronic anterior wedging at L1 is unchanged. CT/CT abdomen pelvis wo con [id number] IMPRESSION: 1. Findings compatible with acute diverticulitis described above with a small amount of free fluid in the pelvis. No drainable abscess or drainable fluid col lection. 2. Prior cholecystectomy and hysterectomy. 3. No other significant interval changes. Attempted notification ISABELL Craig at 01/11/2022 9:59 AM.
--- NOTE | 2022-01-11 08:55 | W.ED.ABDPA2 ---
Documented by User: ISABELL Craig 01/11/22 12:17 HPI - Abdominal Pain General: Chief Complaint: Abdominal Pain Stated Complaint: abd pain Time Seen by Provider: 01/11/22 08:41 Source: patient Mode of arrival: ambulatory Limitations: no limitations History of Present Illness: Patient is a nice 86-year-old female who presents to ED today with complaint of lower abdominal pains that began yesterday evening. Patient states she was uncomfortable throughout the night. She does report waking up frequently to urinate throughout the night however she is not complaining of dysuria. She states she does have a history of UTIs. She also reports a history of diverticulitis and thinks maybe her pain could be secondary to that. She has not noticed any changes in her bowel movements though at one point does state they have been slightly looser than normal. She does not complain of any dark/tarry stools or hematochezia. She states she feels a little nauseous but has not had any episodes of emesis. No fevers. No flank pain. Previous abdominal surgeries include open cholecystectomy and hysterectomy. MD elicited complaint: abdominal pain Onset (ago): hour(s) Pain Consistency: constant Location: Other (throughout lower abdomen) Radiation: none Migration to: no migration Exacerbating factors: nothing Relieving factors: other (states urinating relieved some of the pressure) Associated Symptoms: Reports nausea; Denies chills, diarrhea, dysuria, fever(s) and vomiting Related Data: Date of Last Menstrual Period: 10/01/20 Review of Systems Const: Denies: fever(s), chills, body aches, fatigue or malaise Card: Denies: chest pain Resp: Denies: dyspnea GI: Reports: abdominal pain and nausea; Denies: vomiting or diarrhea : Reports: urinary frequency and urinary urgency; Denies: flank pain, difficulty voiding, dysuria or urinary hesitancy Musc: Denies: neck pain, back pain, extremity pain or joint pain Skin/Breast: Denies: rash Neuro: Denies: headache(s), numbness in extremities, weakness in extremities, sensory changes or dizziness [facility] PFSH: Medical History Acquired hypothyroidism Arrhythmia ASHD (arteriosclerotic heart disease) Asymptomatic superficial varicosities of lower extremity, bilateral Benign essential hypertension Bilateral edema of lower extremity dependent mostly Bilateral hip pain Chronic obstructive pulmonary emphysema Diabetes Diastolic dysfunction Dilated aortic root Diverticula of colon Hammertoe, bilateral Intermittent palpitations Mixed hyperlipidemia 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 Poor compliance PVD (peripheral vascular disease) Type 2 diabetes mellitus, without long-term current use of insulin Vaginal prolapse Surgical History H/O: hysterectomy History of appendectomy History of cholecystectomy History of hip surgery Right RAZIA History of tonsillectomy S/P coronary artery stent placement S/P selective transsphenoidal pituitary adenomectomy Family History Father CAD (coronary artery disease) Mother Cancer Chronic kidney disease (CKD) Sister Diabetes Other Hypertension Denies family history of Clotting disorder Dementia Suicide Anesthesia complication Bleeding disorder Lung disease Stroke Social History Smoking and tobacco status: never smoked Alcohol intake: never Household members: none Housing: Apartment Marital status: / Number of children: 5 Number of grandchildren: 8 Highest education level completed: 10th Grade service: No Current occupational status: retired Female Reproductive History: Date of last menstrual period: 10/01/20 Physical Exam Const: COMMON NORMALS: no acute distress, patient oriented x3, no limitations, healthy appearing, alert and well nourished GENERAL APPEARANCE: cooperative ORIENTATION/CONSCIOUSNESS: Yes awake, Yes oriented to person, Yes oriented to place and Yes oriented to time HENMT: COMMON NORMALS: normocephalic and atraumatic HEAD & SCALP: normal to inspection, normocephalic and atraumatic Neck/C-Spine: COMMON NORMALS: full ROM, no lymphadenopathy and no meningeal signs Resp: COMMON NORMALS: normal respiratory effort and clear to auscultation bilaterally AUSCULTATION: clear to auscultation bilaterally Cardio: COMMON NORMALS: regular rate and regular rhythm RATE: regular rate RHYTHM: regular rhythm GI: COMMON NORMALS: Normal to inspection, nondistended, normoactive bowel sounds present, Soft to palpation, No hepatosplenomegaly present and no masses INSPECTION: Yes normal to inspection AUSCULTATION: Yes normoactive bowel sounds PALPATION: Yes Soft to palpation, Yes Tenderness to palpation present (GI) (throughout lower abdomen ), No Guarding due to palpation present (GI), No Rigid due to palpation and Yes No hepatosplenomegaly present : COMMON NORMALS: Yes no CVA tenderness BLADDER/KIDNEY EXAM: Yes no CVA tenderness Back/Pelvis: COMMON NORMALS: no CVA tenderness THORACIC SPINE/UPPER BACK: Yes normal to inspection LUMBAR SPINE/LOWER BACK: Yes normal to inspection Extremity: COMMON NORMALS: normal to inspection GENERAL: Yes normal exam except as noted Neuro: GIGI COMA SCALE: document GCS findings Gigi coma scale eye opening: Spontaneous [place] coma scale verbal response: Orientated [place] coma scale motor response: Obey commands Gigi coma scale total score: 15 COMMON NORMALS: patient oriented x3, moves all extremities and no sensory deficits noted SENSORIUM/ORIENTATION: Yes alert, Yes oriented to person, Yes oriented to place and Yes oriented to time MENINGEAL SIGNS: Yes no meningeal signs Skin: COMMON NORMALS: no rashes or lesions noted GENERAL SKIN EXAM: no rashes or lesions noted Course Vital Signs: Vital signs: Vital Signs Temperature 97.8 F 01/11/22 08:41 Pulse Rate 75 01/11/22 12:28 Respiratory Rate 15 01/11/22 08:41 Blood Pressure 150/67 01/11/22 11:45 Pulse Oximetry 100 01/11/22 11:45 MDM - Abdominal Pain Medical Decision Making Patient has acute diverticulitis on her CT scan. There is no abscess or perforation at this time. She is not tachycardic or febrile. Her white count is normal at 9.0. Patient has allergies to Cipro and penicillin. She was treated with IV Zinacef and Flagyl here. Will be sent home on oral Bactrim and Flagyl. Strict return to ED precautions given if symptoms worsen or fail to improve. Of note patient is hyponatremic at 124. It looks like her baseline is roughly 130. Recommend she have this checked through primary care in 2 to 3 days and she can also follow up with them in regards to the diverticulitis. Lab Data : 01/11/22 07:18 01/11/22 07:18 Labs/Radiology: Radiology Impressions Abdomen/Pelvis CT 01/11/22 08:53 IMPRESSION: 1. Findings compatible with acute diverticulitis described above with a small amount of free fluid in the pelvis. No drainable abscess or drainable fluid collection. 2. Prior cholecystectomy and hysterectomy. 3. No other significant interval changes. Attempted notification ISABELL Craig at 01/11/2022 9:59 AM. Laboratory Results WBC 9.0 10^3/uL (4.0-10.0) 01/11/22 07:18 RBC 4.20 10^6/uL (4.1-5.3) 01/11/22 07:18 Hgb 12.1 g/dL (11.5-15.3) 01/11/22 07:18 Hct 34.5 % (37.0-47.0) L 01/11/22 07:18 MCV 82.1 fl (81-99) 01/11/22 07:18 MCH 28.8 pg (28.0-34.0) 01/11/22 07:18 MCHC 35.1 g/dL (30.0-36.0) 01/11/22 07:18 RDW 12.0 % (12.1-15.1) L 01/11/22 07:18 Plt Count 254 10^3/cmm (130-400) 01/11/22 07:18 MPV 9.2 fL (7.4-10.4) 01/11/22 07:18 Neut % (Auto) 69.8 % 01/11/22 07:18 Lymph % (Auto) 19.6 % 01/11/22 07:18 [place] % (Auto) 8.3 % 01/11/22 07:18 Eos % (Auto) 1.6 % 01/11/22 07:18 Baso % (Auto) 0.4 % 01/11/22 07:18 Neut # (Auto) 6.25 10^3/uL (1.8-7.7) 01/11/22 07:18 Lymph # (Auto) 1.8 10^3/uL (0.8-4.8) 01/11/22 07:18 [place] # (Auto) 0.7 10^3/uL (0.2-0.9) 01/11/22 07:18 Eos # (Auto) 0.1 10^3/uL (0.0-0.8) 01/11/22 07:18 Baso # (Auto) 0.0 10^3/uL (0.0-0.1) 01/11/22 07:18 Nucleated RBC % (auto) 0 % 01/11/22 07:18 Nucleated RBCs # 0.0 /100WBC 01/11/22 07:18 Sodium 124 mmol/L (136-145) L 01/11/22 07:18 Potassium 3.9 mmol/L (3.5-5.1) 01/11/22 07:18 Chloride 92 mmol/L (98-107) L 01/11/22 07:18 Carbon Dioxide 21 mmol/L (22-29) L 01/11/22 07:18 Anion Gap 14.9 (5-19) 01/11/22 07:18 BUN 7 mg/dL (8-23) L 01/11/22 07:18 Creatinine 0.5 mg/dL (0.5-0.9) 01/11/22 07:18 GFR Calculation Not Reportable 01/11/22 07:18 Glucose 134 mg/dL (65-115) H 01/11/22 07:18 Calculated Osmolality 258 mOsm/kg (285-295) L 01/11/22 07:18 Calcium 9.5 mg/dL (8.5-10.5) 01/11/22 07:18 Total Bilirubin 0.5 mg/dL (0.15-1.2) 01/11/22 07:18 AST 14 U/L (0-32) 01/11/22 07:18 ALT 6 U/L (0-33) 01/11/22 07:18 Alkaline Phosphatase 93 IU/L (35-105) 01/11/22 07:18 Total Protein 6.3 g/dL (6.6-8.7) L 01/11/22 07:18 Albumin 4.0 g/dL (3.5-5.2) 01/11/22 07:18 Globulin 2.3 g/dL (1.3-4.6) 01/11/22 07:18 Lipase 13 U/L (13-60) 01/11/22 07:18 Urine Color Yellow (Yellow) 01/11/22 07:15 Urine Appearance Clear (CLEAR) 01/11/22 07:15 Urine pH 8 (5-7) H 01/11/22 07:15 Ur Specific [place] 1.005 (1.005-1.030) 01/11/22 07:15 Urine Protein Neg (Negative) 01/11/22 07:15 Urine Glucose (UA) Norm (Normal) 01/11/22 07:15 Urine Ketones Negative (Negative) 01/11/22 07:15 Urine Blood Neg (Negative) 01/11/22 07:15 Urine Nitrate Negative (Negative) 01/11/22 07:15 Urine Bilirubin Neg (Negative) 01/11/22 07:15 Prot Sulfosalicylic Acd Negative (Negative) 01/11/22 07:15 Urine Urobilinogen Norm mg/dL (Negative) 01/11/22 07:15 Ur Leukocyte Esterase Negative (Negative) 01/11/22 07:15 Discharge Plan Discharge Patient Disposition: Home Clinical Impression: Diverticulitis Condition: Stable Prescriptions: New Bactrim DS 800-160 mg tablet 1 tab PO BID 10 Days Qty: 20 0RF hydrocodone-acetaminophen 5-325 mg tablet 1 tab PO Q6H PRN (Reason: pain) Qty: 10 0RF metronidazole 500 mg tablet 500 mg PO BID 10 Days Qty: 20 0RF No Action metoprolol tartrate 25 mg tablet 12.5 mg PO BID 0RF (DME) Toe sleeve See Rx Instructions .Route .MEDSUPPLY Qty: 1 0RF Rx Instructions: As directed (DME) Diabetic shoes See Rx Instructions .ROUTE .MEDSUPPLY Qty: 1 0RF Rx Instructions: With 3 pairs of inserts, Custom made by [employer] methylprednisolone [Medrol (Jose Manuel)] 4 mg tablets,dose pack See Rx Instructions PO PER PKG DIR Qty: 21 0RF Rx Instructions: PO PER PKG DIR alprazolam 0.25 mg tablet 0.25 mg PO .prn PRN (Reason: anxiety) Qty: 30 0RF omeprazole 40 mg capsule,delayed release(DR/EC) 40 mg PO DAILY Qty: 90 0RF levothyroxine 88 mcg tablet 88 mcg PO DAILY Qty: 90 1RF (DME) Diabetic shoes with 3 inserts See Rx Instructions .Route .MEDSUPPLY Qty: 1 0RF Rx Instructions: As directed J P & O amlodipine 5 mg tablet 5 mg PO DAILY Qty: 90 3RF potassium chloride 8 mEq tablet extended release 8 meq PO DAILY Qty: 90 3RF furosemide [Lasix] 20 mg tablet 20 mg PO DAILY Qty: 90 3RF atorvastatin [Lipitor] 40 mg tablet 40 mg PO DAILY Qty: 90 3RF (DME) OneTouch Ultra Test Strip See Rx Instructions .Route Qty: 100 3RF Rx Instructions: use in onetouch meter daily 90 day supply losartan 100 mg tablet 50 mg PO DAILY 30 Days Qty: 30 5RF Rx Instructions: Pt states she is only taking 50 mg daily nitroglycerin [Nitrostat] 0.4 mg tablet, sublingual 0.4 mg sublingual Q5M PRN (Reason: chest pain) Qty: 50 5RF Rx Instructions: do not exceed 3 doses per episode clopidogrel 75 mg tablet 75 mg PO QAM Qty: 90 3RF meclizine 25 mg tablet See Rx Instructions .ROUTE .COMPLEX Qty: 90 0RF Dose Instruction: TAKE ONE TABLET EVERY 6 HOURS NEEDED FOR VERTIGO Rx Instructions: TAKE ONE TABLET EVERY 6 HOURS NEEDED FOR VERTIGO ezetimibe [Zetia] 10 mg tablet 10 mg PO DAILY Qty: 90 3RF albuterol sulfate [ProAir HFA] 90 mcg/actuation HFA aerosol inhaler 2 puff inhalation Q6H PRN (Reason: shortness of breath or wheezing) Qty: 8.5 0RF Probiotic Pearls 15 mg (1 billion cell) Capsule,Delayed Release(Dr/Ec) 1 cap PO DAILY 0RF echinacea 1 cap PO PRN 0RF milk thistle 1 cap PO PRN 0RF Liquid Multivitamins See Rx Instructions .ROUTE .COMPLEX 0RF Rx Instructions: 2 tablespoons po every other day Discharge Orders: Discharge ED (Routine); Ordered 01/11/22 Ordered By: Polina Varghese Referrals: Lashawn Zaldivar DO [Primary Care Provider] - Patient Instructions: Diverticulitis (DC), Opioid Safety Activity Restrictions/Additional Instructions: Fill your antibiotics and begin them immediately. You may take pain medications as needed for severe discomfort. You need to return to the emergency department immediately for worsening or uncontrollable abdominal pain, nonimprovement in symptoms over the next 48 hours despite antibiotic treatment, fevers greater than 100.4, generally feeling unwell or worse, fevers, or any other concerns you may have. I hope you begin to feel better soon. Coding Level of Care Code ED Time Clerk for Daniela Fwd Exam Comprehensive Documented by User: Anupam De Paz DO 01/11/22 16:50 HPI - Abdominal Pain General: Chief Complaint: Abdominal Pain Stated Complaint: abd pain Time Seen by Provider: 01/11/22 08:41 PFSH ED PFSH: Medical History Acquired hypothyroidism Arrhythmia ASHD (arteriosclerotic heart disease) Asymptomatic superficial varicosities of lower extremity, bilateral Benign essential hypertension Bilateral edema of lower extremity dependent mostly Bilateral hip pain Chronic obstructive pulmonary emphysema Diabetes Diastolic dysfunction Dilated aortic root Diverticula of colon Hammertoe, bilateral Intermittent palpitations Mixed hyperlipidemia 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 Poor compliance PVD (peripheral vascular disease) Type 2 diabetes mellitus, without long-term current use of insulin Vaginal prolapse Surgical History H/O: hysterectomy History of appendectomy History of cholecystectomy History of hip surgery Right RAZIA History of tonsillectomy S/P coronary artery stent placement S/P selective transsphenoidal pituitary adenomectomy Family History Father CAD (coronary artery disease) Mother Cancer Chronic kidney disease (CKD) Sister Diabetes Other Hypertension Denies family history of Clotting disorder Dementia Suicide Anesthesia complication Bleeding disorder Lung disease Stroke Social History Smoking and tobacco status: never smoked Alcohol intake: never Household members: none Housing: Apartment Marital status: / Number of children: 5 Number of grandchildren: 8 Highest education level completed: 10th Grade service: No Current occupational status: retired Physical Exam Neuro: GIGI COMA SCALE: document GCS findings [place] coma scale total score: 15 Course Vital Signs: Vital signs: Vital Signs Temperature 97.8 F 01/11/22 08:41 Pulse Rate 75 01/11/22 12:28 Respiratory Rate 15 01/11/22 08:41 Blood Pressure 150/67 01/11/22 11:45 Pulse Oximetry 100 01/11/22 11:45 MDM - Abdominal Pain Medical Decision Making Patient has acute diverticulitis on her CT scan. There is no abscess or perforation at this time. She is not tachycardic or febrile. Her white count is normal at 9.0. Patient has allergies to Cipro and penicillin. She was treated with IV Zinacef and Flagyl here. Will be sent home on oral Bactrim and Flagyl. Strict return to ED precautions given if symptoms worsen or fail to improve. Of note patient is hyponatremic at 124. It looks like her baseline is roughly 130. Recommend she have this checked through primary care in 2 to 3 days and she can also follow up with them in regards to the diverticulitis. Chart reviewed and patient discussed with midlevel. Agree with assessment and plan. Medical Records I reviewed the patient's medical records. Lab Data I reviewed the patient's lab results. : 01/11/22 07:18 01/11/22 07:18 Labs/Radiology: Radiology Impressions Abdomen/Pelvis CT 01/11/22 08:53 IMPRESSION: 1. Findings compatible with acute diverticulitis described above with a small amount of free fluid in the pelvis. No drainable abscess or drainable fluid collection. 2. Prior cholecystectomy and hysterectomy. 3. No other significant interval changes. Attempted notification ISABELL Craig at 01/11/2022 9:59 AM. Laboratory Results WBC 9.0 10^3/uL (4.0-10.0) 01/11/22 07:18 RBC 4.20 10^6/uL (4.1-5.3) 01/11/22 07:18 Hgb 12.1 g/dL (11.5-15.3) 01/11/22 07:18 Hct 34.5 % (37.0-47.0) L 01/11/22 07:18 MCV 82.1 fl (81-99) 01/11/22 07:18 MCH 28.8 pg (28.0-34.0) 01/11/22 07:18 MCHC 35.1 g/dL (30.0-36.0) 01/11/22 07:18 RDW 12.0 % (12.1-15.1) L 01/11/22 07:18 Plt Count 254 10^3/cmm (130-400) 01/11/22 07:18 MPV 9.2 fL (7.4-10.4) 01/11/22 07:18 Neut % (Auto) 69.8 % 01/11/22 07:18 Lymph % (Auto) 19.6 % 01/11/22 07:18 [place] % (Auto) 8.3 % 01/11/22 07:18 Eos % (Auto) 1.6 % 01/11/22 07:18 Baso % (Auto) 0.4 % 01/11/22 07:18 Neut # (Auto) 6.25 10^3/uL (1.8-7.7) 01/11/22 07:18 Lymph # (Auto) 1.8 10^3/uL (0.8-4.8) 01/11/22 07:18 [place] # (Auto) 0.7 10^3/uL (0.2-0.9) 01/11/22 07:18 Eos # (Auto) 0.1 10^3/uL (0.0-0.8) 01/11/22 07:18 Baso # (Auto) 0.0 10^3/uL (0.0-0.1) 01/11/22 07:18 Nucleated RBC % (auto) 0 % 01/11/22 07:18 Nucleated RBCs # 0.0 /100WBC 01/11/22 07:18 Sodium 124 mmol/L (136-145) L 01/11/22 07:18 Potassium 3.9 mmol/L (3.5-5.1) 01/11/22 07:18 Chloride 92 mmol/L (98-107) L 01/11/22 07:18 Carbon Dioxide 21 mmol/L (22-29) L 01/11/22 07:18 Anion Gap 14.9 (5-19) 01/11/22 07:18 BUN 7 mg/dL (8-23) L 01/11/22 07:18 Creatinine 0.5 mg/dL (0.5-0.9) 01/11/22 07:18 GFR Calculation Not Reportable 01/11/22 07:18 Glucose 134 mg/dL (65-115) H 01/11/22 07:18 Calculated Osmolality 258 mOsm/kg (285-295) L 01/11/22 07:18 Calcium 9.5 mg/dL (8.5-10.5) 01/11/22 07:18 Total Bilirubin 0.5 mg/dL (0.15-1.2) 01/11/22 07:18 AST 14 U/L (0-32) 01/11/22 07:18 ALT 6 U/L (0-33) 01/11/22 07:18 Alkaline Phosphatase 93 IU/L (35-105) 01/11/22 07:18 Total Protein 6.3 g/dL (6.6-8.7) L 01/11/22 07:18 Albumin 4.0 g/dL (3.5-5.2) 01/11/22 07:18 Globulin 2.3 g/dL (1.3-4.6) 01/11/22 07:18 Lipase 13 U/L (13-60) 01/11/22 07:18 Urine Color Yellow (Yellow) 01/11/22 07:15 Urine Appearance Clear (CLEAR) 01/11/22 07:15 Urine pH 8 (5-7) H 01/11/22 07:15 Ur Specific [place] 1.005 (1.005-1.030) 01/11/22 07:15 Urine Protein Neg (Negative) 01/11/22 07:15 Urine Glucose (UA) Norm (Normal) 01/11/22 07:15 Urine Ketones Negative (Negative) 01/11/22 07:15 Urine Blood Neg (Negative) 01/11/22 07:15 Urine Nitrate Negative (Negative) 01/11/22 07:15 Urine Bilirubin Neg (Negative) 01/11/22 07:15 Prot Sulfosalicylic Acd Negative (Negative) 01/11/22 07:15 Urine Urobilinogen Norm mg/dL (Negative) 01/11/22 07:15 Ur Leukocyte Esterase Negative (Negative) 01/11/22 07:15 Discharge Plan Discharge Patient Disposition: Home Clinical Impression: Diverticulitis Condition: Stable Prescriptions: New Bactrim DS 800-160 mg tablet 1 tab PO BID 10 Days Qty: 20 0RF hydrocodone-acetaminophen 5-325 mg tablet 1 tab PO Q6H PRN (Reason: pain) Qty: 10 0RF metronidazole 500 mg tablet 500 mg PO BID 10 Days Qty: 20 0RF No Action metoprolol tartrate 25 mg tablet 12.5 mg PO BID 0RF (DME) Toe sleeve See Rx Instructions .Route .MEDSUPPLY Qty: 1 0RF Rx Instructions: As directed (DME) Diabetic shoes See Rx Instructions .ROUTE .MEDSUPPLY Qty: 1 0RF Rx Instructions: With 3 pairs of inserts, Custom made by [employer] methylprednisolone [Medrol (Jose Manuel)] 4 mg tablets,dose pack See Rx Instructions PO PER PKG DIR Qty: 21 0RF Rx Instructions: PO PER PKG DIR alprazolam 0.25 mg tablet 0.25 mg PO .prn PRN (Reason: anxiety) Qty: 30 0RF omeprazole 40 mg capsule,delayed release(DR/EC) 40 mg PO DAILY Qty: 90 0RF levothyroxine 88 mcg tablet 88 mcg PO DAILY Qty: 90 1RF (DME) Diabetic shoes with 3 inserts See Rx Instructions .Route .MEDSUPPLY Qty: 1 0RF Rx Instructions: As directed J P & O amlodipine 5 mg tablet 5 mg PO DAILY Qty: 90 3RF potassium chloride 8 mEq tablet extended release 8 meq PO DAILY Qty: 90 3RF furosemide [Lasix] 20 mg tablet 20 mg PO DAILY Qty: 90 3RF atorvastatin [Lipitor] 40 mg tablet 40 mg PO DAILY Qty: 90 3RF (DME) OneTouch Ultra Test Strip See Rx Instructions .Route Qty: 100 3RF Rx Instructions: use in onetouch meter daily 90 day supply losartan 100 mg tablet 50 mg PO DAILY 30 Days Qty: 30 5RF Rx Instructions: Pt states she is only taking 50 mg daily nitroglycerin [Nitrostat] 0.4 mg tablet, sublingual 0.4 mg sublingual Q5M PRN (Reason: chest pain) Qty: 50 5RF Rx Instructions: do not exceed 3 doses per episode clopidogrel 75 mg tablet 75 mg PO QAM Qty: 90 3RF meclizine 25 mg tablet See Rx Instructions .ROUTE .COMPLEX Qty: 90 0RF Dose Instruction: TAKE ONE TABLET EVERY 6 HOURS NEEDED FOR VERTIGO Rx Instructions: TAKE ONE TABLET EVERY 6 HOURS NEEDED FOR VERTIGO ezetimibe [Zetia] 10 mg tablet 10 mg PO DAILY Qty: 90 3RF albuterol sulfate [ProAir HFA] 90 mcg/actuation HFA aerosol inhaler 2 puff inhalation Q6H PRN (Reason: shortness of breath or wheezing) Qty: 8.5 0RF Probiotic Pearls 15 mg (1 billion cell) Capsule,Delayed Release(Dr/Ec) 1 cap PO DAILY 0RF echinacea 1 cap PO PRN 0RF milk thistle 1 cap PO PRN 0RF Liquid Multivitamins See Rx Instructions .ROUTE .COMPLEX 0RF Rx Instructions: 2 tablespoons po every other day Discharge Orders: Discharge ED (Routine); Ordered 01/11/22 Ordered By: Polina Varghese Referrals: Lashawn Zaldivar DO [Primary Care Provider] - Patient Instructions: Diverticulitis (DC), Opioid Safety Activity Restrictions/Additional Instructions: Fill your antibiotics and begin them immediately. You may take pain medications as needed for severe discomfort. You need to return to the emergency department immediately for worsening or uncontrollable abdominal pain, nonimprovement in symptoms over the next 48 hours despite antibiotic treatment, fevers greater than 100.4, generally feeling unwell or worse, fevers, or any other concerns you may have. I hope you begin to feel better soon. Coding Level of Care Code ED Time Clerk for Blaire Fwd Exam Comprehensive
[2022-01-11 09:08] LABS: Basophils % 0.4 %; Eosinophils # 0.1 10^3/uL (0.0-0.8); Eosinophils % 1.6 %; Hematocrit 34.5 % (37.0-47.0); Hemoglobin 12.1 g/dL (11.5-15.3); Lymphocytes # 1.8 10^3/uL (0.8-4.8); Lymphocytes % 19.6 %; Mean Corpuscular HGB Conc 35.1 g/dL (30.0-36.0); Mean Corpuscular Hemoglobin 28.8 pg (28.0-34.0); Mean Corpuscular Volume 82.1 fl (81-99); Mean Platelet Volume 9.2 fL (7.4-10.4); Monocytes # 0.7 10^3/uL (0.2-0.9); Monocytes % 8.3 %; Neutrophils # 6.25 10^3/uL (1.8-7.7); Neutrophils % 69.8 %; Nucleated Red Blood Cells % 0 %; Platelet Count 254 10^3/cmm (130-400)
[2022-01-11 09:16] LABS: Add Urine Microscopic? NO; Charge for UA Resulting for Rev
[2022-01-11 09:26] LABS: Alanine Aminotransferase 6 U/L (0-33); Alkaline Phosphatase 93 IU/L (35-105); Anion Gap 14.9 (5-19); Aspartate Amino Transferase 14 U/L (0-32); Blood Urea Nitrogen 7 mg/dL (8-23); Calcium 9.5 mg/dL (8.5-10.5); Carbon Dioxide 21 mmol/L (22-29); Chloride 92 mmol/L (98-107); Globulin 2.3 g/dL (1.3-4.6); Glucose 134 mg/dL (65-115); Lipase 13 U/L (13-60); Osmolality Calculated 258 mOsm/kg (285-295); Potassium 3.9 mmol/L (3.5-5.1); Sodium 124 mmol/L (136-145); Total Bilirubin 0.5 mg/dL (0.15-1.2); Total Protein 6.3 g/dL (6.6-8.7)
[2022-01-11 09:38] LABS: Blood Urine Neg (Negative); Glucose Urine UA Norm (Normal); Ketones Urine Negative (Negative); Leukocyte Esterase Urine Negative (Negative); Nitrate Urine Negative (Negative); Protein Urine Neg (Negative); Specific Gravity, Urine 1.005 (1.005-1.030); Urine Appearance Clear (CLEAR); Urine Color Yellow (Yellow); Urobilinogen Urine Norm (Negative); pH Urine 8 (5-7)
[2022-01-11 09:39] LABS: Bilirubin Urine Neg (Negative); Sulfosalicylic Acid Urine Negative (Negative)
[2022-01-11] MEDS: metroNIDAZOLE IV 500 MG/100 ML PREMIX 100 MG IV (10:50)
--- NOTE | 2022-01-11 10:57 | PC.NURSE ---
NOTIFIED PHARMACY OF NEED OF CEFUROXIME MALE STATED IT WOULD BE MADE AVAILABLE JAIR.
[2022-01-11] MEDS: cefUROXime 1,500 MG in sodium chloride 0.9% (plus) 50 ML 100 MG IV (11:23)
== END 2022-01-11 12:29 | disposition home or self-care (01) ==
PROVIDERS: Emergency Provider Physician Assistant; PCP Family Medicine
DX: K57.32 Diverticulitis of large intestine without perforation or abscess without bleeding (principal); Z87.440 Personal history of urinary (tract) infections
CPT/HCPCS: 74176; 80053; 81003; 83690; 85025; 96365; 99284; J0697; S0030

== ENCOUNTER 2022-01-15 00:04 | Inpatient (IN) | payer MEDICARE, OTHER, SELFPAY ==
[2022-01-15] VITALS (36 sets, daily range): BP systolic 104–152; BP diastolic 51–96; PULSE 56–85; RESP 15–27; TEMP 36.6–37; O2SAT 95–100; BMI 20.9
--- NOTE | 2022-01-15 00:15 | CTR_ITS ---
PROCEDURE INFORMATION: Exam: CT Abdomen And Pelvis Without Contrast Exam date and time: 01/15/2022 12:25 AM Age: 86 years old Clinical indication: Abdominal pain; Generalized; Prior surgery; Surgery date: 6+ months; Surgery type: Hyst/selvin/appy; Additional info: Diverticulitis; Worsening pain TECHNIQUE: Imaging protocol: Computed tomography of the abdomen and pelvis without contrast. Radiation optimization: All CT scans at this facility use at least one of these dose optimization techniques: automated exposure control; mA and/or kV adjustment per patient size (includes targeted exams where dose is matched to clinical indication); or iterative reconstruction. COMPARISON: CT abdomen pelvis wo con [id number] 01/11/2022 9:41 AM RADIATION DOSE METRICS: Total DLP (mGy-cm): 804.72 FINDINGS: Limitations: The absence of intravenous contrast lessens the sensitivity of this study for solid organ abnormalities. Right hip replacement causes streak artifact that obscures some portions of the pelvis. Tubes, catheters and devices: There is right hip replacement with prosthetic components in anatomic alignment. Liver: There is no focal abnormality within the liver. Gallbladder and bile ducts: There has been a cholecystectomy. There is moderate dilatation of the common bile duct which measures 10 mm. Pancreas: The pancreas is normal. Spleen: The spleen is normal. The spleen is normal. Adrenal glands: The adrenal glands are normal. Kidneys and ureters: There are multiple right renal collecting system calcifications. The left kidney is normal. There is no evidence of hydronephrosis. There is no stone along the course of either ureter. Stomach and bowel: Moderate diverticulosis is present in the distal colon. There is thickening of the sigmoid colon and mild inflammatory strange is adjacent with a small and a fluid in the pelvis consistent with acute diverticulitis not significantly changed. Appendix: A normal appendix is identified. Intraperitoneal space: There is no evidence of free intraperitoneal fluid. Vasculature: The aorta demonstrates moderate atherosclerotic calcification. There is no evidence of an abdominal aortic aneurysm. Lymph nodes: There is no evidence of lymphadenopathy. Urinary bladder: Unremarkable as visualized. Reproductive: There has been a hysterectomy. 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 Soft tissues: Unremarkable. CT/CT abdomen pelvis wo con [id number] IMPRESSION: Stable findings of diverticulitis within the pelvis.
--- NOTE | 2022-01-15 00:15 | ED_ITS ---
Documented by User: ISABELL Craig 01/15/22 02:27 HPI - Abdominal Pain General: Chief Complaint: Abdominal Pain Stated Complaint: ABD PAIN Time Seen by Provider: 01/15/22 00:07 Source: patient and EMS Limitations: no limitations History of Present Illness: Patient is an 86-year-old who presents to the ED today with complaints of continued abdominal pain. I personally saw patient 2 days ago and diagnosed her with diverticulitis. Patient was stable at that time and pain was controlled. She had a normal white count and normal vitals and thus sent home on oral antibiotics. She had allergies to Penicillin as well as Cipro so she was sent home on Bactrim and Flagyl. Patient states she only took one dose of these medications because they made her too sick . She states abdominal pain is worsening. She is not having any fevers. No episodes of vomiting. MD elicited complaint: abdominal pain (diverticulitis ) Severity: severe Quality: cramping Radiation: none Migration to: no migration Associated Symptoms: Reports nausea; Denies chills, diarrhea, dysuria, fever(s), hematuria and vomiting Related Data: Date of Last Menstrual Period: 10/01/20 Review of Systems Const: Denies: fever(s), chills, body aches, fatigue or malaise Card: Denies: chest pain Resp: Denies: dyspnea GI: Reports: abdominal pain and nausea; Denies: vomiting or diarrhea : Denies: flank pain, dysuria or hematuria Musc: Denies: neck pain, back pain, extremity pain or joint pain Skin/Breast: Denies: rash Neuro: Denies: headache(s) or dizziness [facility] ED PFSH: Medical History Acquired hypothyroidism Arrhythmia ASHD (arteriosclerotic heart disease) Asymptomatic superficial varicosities of lower extremity, bilateral Benign essential hypertension Bilateral edema of lower extremity dependent mostly Bilateral hip pain Chronic obstructive pulmonary emphysema Diabetes Diastolic dysfunction Dilated aortic root Diverticula of colon Hammertoe, bilateral Intermittent palpitations Mixed hyperlipidemia 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 Poor compliance PVD (peripheral vascular disease) Type 2 diabetes mellitus, without long-term current use of insulin Vaginal prolapse Surgical History H/O: hysterectomy History of appendectomy History of cholecystectomy History of hip surgery Right RAZIA History of tonsillectomy S/P coronary artery stent placement S/P selective transsphenoidal pituitary adenomectomy Family History Father CAD (coronary artery disease) Mother Cancer Chronic kidney disease (CKD) Sister Diabetes Other Hypertension Denies family history of Clotting disorder Dementia Suicide Anesthesia complication Bleeding disorder Lung disease Stroke Social History Smoking and tobacco status: never smoked Alcohol intake: never Household members: none Housing: Apartment Marital status: / Number of children: 5 Number of grandchildren: 8 Highest education level completed: 10th Grade service: No Current occupational status: retired Female Reproductive History: Date of last menstrual period: 10/01/20 Physical Exam Const: COMMON NORMALS: no acute distress, patient oriented x3, no limitations and alert GENERAL APPEARANCE: cooperative ORIENTATION/CONSCIOUSNESS: Yes awake, Yes oriented to person, Yes oriented to place and Yes oriented to time HENMT: COMMON NORMALS: normocephalic and atraumatic HEAD & SCALP: normal to inspection, normocephalic and atraumatic Resp: COMMON NORMALS: normal respiratory effort and clear to auscultation bilaterally AUSCULTATION: clear to auscultation bilaterally Cardio: COMMON NORMALS: regular rate and regular rhythm RATE: regular rate RHYTHM: regular rhythm GI: COMMON NORMALS: Normal to inspection, nondistended, normoactive bowel sounds present, Soft to palpation, No hepatosplenomegaly present and no masses INSPECTION: Yes normal to inspection AUSCULTATION: Yes normoactive bowel sounds PALPATION: Yes Soft to palpation, Yes Tenderness to palpation present (GI) (lower abdomen ), No Guarding due to palpation present (GI), No Rigid due to palpation and Yes No hepatosplenomegaly present : COMMON NORMALS: Yes no CVA tenderness BLADDER/KIDNEY EXAM: Yes no CVA tenderness Back/Pelvis: COMMON NORMALS: no CVA tenderness, thoracic and lumbar spine normal to inspection, no thoracic nor lumbar tenderness and thoraco-lumbar ROM normal Extremity: COMMON NORMALS: normal to inspection GENERAL: Yes normal exam except as noted Neuro: GIGI COMA SCALE: document GCS findings [place] coma scale eye opening: Spontaneous Gigi coma scale verbal response: Orientated [place] coma scale motor response: Obey commands Gigi coma scale total score: 15 COMMON NORMALS: patient oriented x3, moves all extremities, no focal motor deficits and no sensory deficits noted SENSORIUM/ORIENTATION: Yes alert, Yes oriented to person, Yes oriented to place and Yes oriented to time Skin: COMMON NORMALS: no rashes or lesions noted GENERAL SKIN EXAM: no rashes or lesions noted Course Vital Signs: Vital signs: Vital Signs Pulse Rate 60 01/15/22 01:24 Respiratory Rate 16 01/15/22 01:24 Blood Pressure 144/67 01/15/22 01:24 Pulse Oximetry 97 01/15/22 01:24 MDM - Abdominal Pain Medical Decision Making Patient is either unable or unwilling to take her oral antibiotics at home for treatment of her diverticulitis thus will need IV therapy for this. She was found to be hyponatremic at 114. She will also require hospitalization for treatment of this. Case discussed with Dr. Sharma who will assume care and speak to hospitalist for admission. Lab Data : 01/14/22 11:50 01/14/22 11:50 Labs/Radiology: Radiology Impressions Abdomen/Pelvis CT 01/15/22 00:15 IMPRESSION: Stable findings of diverticulitis within the pelvis. Laboratory Results WBC 4.0 10^3/uL (4.0-10.0) 01/14/22 11:50 RBC 4.48 10^6/uL (4.1-5.3) 01/14/22 11:50 Hgb 12.9 g/dL (11.5-15.3) 01/14/22 11:50 Hct 35.4 % (37.0-47.0) L 01/14/22 11:50 MCV 79.0 fl (81-99) L 01/14/22 11:50 MCH 28.8 pg (28.0-34.0) 01/14/22 11:50 MCHC 36.4 g/dL (30.0-36.0) H 01/14/22 11:50 RDW 11.8 % (12.1-15.1) L 01/14/22 11:50 Plt Count 292 10^3/cmm (130-400) 01/14/22 11:50 MPV 9.8 fL (7.4-10.4) 01/14/22 11:50 Neut % (Auto) 57.6 % 01/14/22 11:50 Lymph % (Auto) 27.6 % 01/14/22 11:50 [place] % (Auto) 13.3 % 01/14/22 11:50 Eos % (Auto) 0.5 % 01/14/22 11:50 Baso % (Auto) 0.5 % 01/14/22 11:50 Neut # (Auto) 2.29 10^3/uL (1.8-7.7) 01/14/22 11:50 Lymph # (Auto) 1.1 10^3/uL (0.8-4.8) 01/14/22 11:50 [place] # (Auto) 0.5 10^3/uL (0.2-0.9) 01/14/22 11:50 Eos # (Auto) 0.0 10^3/uL (0.0-0.8) 01/14/22 11:50 Baso # (Auto) 0.0 10^3/uL (0.0-0.1) 01/14/22 11:50 Nucleated RBC % (auto) 0 % 01/14/22 11:50 Nucleated RBCs # 0.0 /100WBC 01/14/22 11:50 Sodium 114 mmol/L (136-145) L* 01/14/22 11:50 Potassium 4.2 mmol/L (3.5-5.1) 01/14/22 11:50 Chloride 81 mmol/L (98-107) L 01/14/22 11:50 Carbon Dioxide 17 mmol/L (22-29) L 01/14/22 11:50 Anion Gap 20.2 (5-19) H 01/14/22 11:50 BUN 11 mg/dL (8-23) 01/14/22 11:50 Creatinine 0.6 mg/dL (0.5-0.9) 01/14/22 11:50 GFR Calculation Not Reportable 01/14/22 11:50 Glucose 97 mg/dL (65-115) 01/14/22 11:50 Calculated Osmolality 237 mOsm/kg (285-295) L 01/14/22 11:50 Lactic Acid 1.2 mmol/L (0.5-2.2) 01/15/22 01:15 Calcium 9.5 mg/dL (8.5-10.5) 01/14/22 11:50 Total Bilirubin 0.3 mg/dL (0.15-1.2) 01/14/22 11:50 AST 24 U/L (0-32) 01/14/22 11:50 ALT 11 U/L (0-33) 01/14/22 11:50 Alkaline Phosphatase 93 IU/L (35-105) 01/14/22 11:50 Total Protein 6.7 g/dL (6.6-8.7) 01/14/22 11:50 Albumin 4.3 g/dL (3.5-5.2) 01/14/22 11:50 Globulin 2.4 g/dL (1.3-4.6) 01/14/22 11:50 Lipase 49 U/L (13-60) 01/14/22 11:50 TSH 0.41 uIU/mL (0.27-4.20) 01/14/22 11:50 Urine Color Yellow (Yellow) 01/15/22 02:02 Urine Appearance Clear (CLEAR) 01/15/22 02:02 Urine pH 6.5 (5-7) 01/15/22 02:02 Ur Specific [place] 1.010 (1.005-1.030) 01/15/22 02:02 Urine Protein Neg (Negative) 01/15/22 02:02 Urine Glucose (UA) Norm (Normal) 01/15/22 02:02 Urine Ketones 2+ (Negative) H 01/15/22 02:02 Urine Blood Neg (Negative) 01/15/22 02:02 Urine Nitrate Negative (Negative) 01/15/22 02:02 Urine Bilirubin Neg (Negative) 01/15/22 02:02 Urine Urobilinogen Norm mg/dL (Negative) 01/15/22 02:02 Ur Leukocyte Esterase Negative (Negative) 01/15/22 02:02 Discharge Plan Discharge Patient Disposition: Admitted As Inpatient Admit Provider: Jerome Roca Clinical Impression: Hyponatremia, Diverticulitis Condition: Stable Coding Level of Care Code 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 Exam Comprehensive Documented by User: Richard Sharma DO 01/15/22 05:12 HPI - Abdominal Pain General: Chief Complaint: Abdominal Pain Stated Complaint: ABD PAIN Time Seen by Provider: 01/15/22 00:07 PFSH ED PFSH: Medical History Acquired hypothyroidism Arrhythmia ASHD (arteriosclerotic heart disease) Asymptomatic superficial varicosities of lower extremity, bilateral Benign essential hypertension Bilateral edema of lower extremity dependent mostly Bilateral hip pain Chronic obstructive pulmonary emphysema Diabetes Diastolic dysfunction Dilated aortic root Diverticula of colon Hammertoe, bilateral Intermittent palpitations Mixed hyperlipidemia 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 Poor compliance PVD (peripheral vascular disease) Type 2 diabetes mellitus, without long-term current use of insulin Vaginal prolapse Surgical History H/O: hysterectomy History of appendectomy History of cholecystectomy History of hip surgery Right RAZIA History of tonsillectomy S/P coronary artery stent placement S/P selective transsphenoidal pituitary adenomectomy Family History Father CAD (coronary artery disease) Mother Cancer Chronic kidney disease (CKD) Sister Diabetes Other Hypertension Denies family history of Clotting disorder Dementia Suicide Anesthesia complication Bleeding disorder Lung disease Stroke Social History Smoking and tobacco status: never smoked Alcohol intake: never Household members: none Housing: Apartment Marital status: / Number of children: 5 Number of grandchildren: 8 Highest education level completed: 10th Grade service: No Current occupational status: retired Physical Exam Neuro: GIGI COMA SCALE: document GCS findings [place] coma scale total score: 15 Course Vital Signs: Vital signs: Vital Signs Pulse Rate 60 01/15/22 01:24 Respiratory Rate 16 01/15/22 01:24 Blood Pressure 144/67 01/15/22 01:24 Pulse Oximetry 97 01/15/22 01:24 MDM - Abdominal Pain Medical Decision Making Patient is either unable or unwilling to take her oral antibiotics at home for treatment of her diverticulitis thus will need IV therapy for this. She was f ound to be hyponatremic at 114. She will also require hospitalization for treatment of this. Case discussed with Dr. Sharma who will assume care and speak to hospitalist for admission. This patient was originally seen by Mrs. Krugerton?MAKAYLA Murillo.? I agree with her history, evaluation, and treatment. Patient has significant hyponatremia and continued diverticulitis. She will be admitted as above. Lab Data : 01/14/22 11:50 01/14/22 11:50 Labs/Radiology: Radiology Impressions Abdomen/Pelvis CT 01/15/22 00:15
[2022-01-15 00:25] LABS: Basophils % 0.5 %; Eosinophils % 0.5 %; Hematocrit 35.4 % (37.0-47.0); Hemoglobin 12.9 g/dL (11.5-15.3); Lymphocytes # 1.1 10^3/uL (0.8-4.8); Lymphocytes % 27.6 %; Mean Corpuscular HGB Conc 36.4 g/dL (30.0-36.0); Mean Corpuscular Hemoglobin 28.8 pg (28.0-34.0); Mean Platelet Volume 9.8 fL (7.4-10.4); Monocytes # 0.5 10^3/uL (0.2-0.9); Monocytes % 13.3 %; Neutrophils # 2.29 10^3/uL (1.8-7.7); Neutrophils % 57.6 %; Nucleated Red Blood Cells % 0 %; Platelet Count 292 10^3/cmm (130-400); Red Blood Count 4.48 10^6/uL (4.1-5.3); Red Cell Distribution Width 11.8 % (12.1-15.1)
[2022-01-15 00:44] LABS: Alanine Aminotransferase 11 U/L (0-33); Albumin Level 4.3 g/dL (3.5-5.2); Alkaline Phosphatase 93 IU/L (35-105); Anion Gap 20.2 (5-19); Aspartate Amino Transferase 24 U/L (0-32); Blood Urea Nitrogen 11 mg/dL (8-23); Calcium 9.5 mg/dL (8.5-10.5); Carbon Dioxide 17 mmol/L (22-29); Chloride 81 mmol/L (98-107); Globulin 2.4 g/dL (1.3-4.6); Glucose 97 mg/dL (65-115); Lipase 49 U/L (13-60); Osmolality Calculated 237 mOsm/kg (285-295); Potassium 4.2 mmol/L (3.5-5.1); Total Bilirubin 0.3 mg/dL (0.15-1.2); Total Protein 6.7 g/dL (6.6-8.7)
[2022-01-15 00:46] LABS: Sodium 114 mmol/L (136-145)
[2022-01-15] MEDS: sodium chloride 0.9% 1,000 ML 500 ML IV (01:22)
[2022-01-15 01:40] LABS: Lactic Sepsis W/Reflex 1.2 mmol/L (0.5-2.2)
[2022-01-15 02:06] LABS: Add Urine Microscopic? NO; Charge for UA Resulting for Rev
[2022-01-15 02:10] LABS: Bilirubin Urine Neg (Negative); Blood Urine Neg (Negative); Glucose Urine UA Norm (Normal); Ketones Urine 2+ (Negative); Leukocyte Esterase Urine Negative (Negative); Nitrate Urine Negative (Negative); Protein Urine Neg (Negative); Urine Appearance Clear (CLEAR); Urine Color Yellow (Yellow); Urobilinogen Urine Norm (Negative); pH Urine 6.5 (5-7)
--- NOTE | 2022-01-15 03:37 | PM.HP ---
Providers/Chief Complaint Admitting Physician: Jerome Roca Primary Care Provider: Lashawn Zaldivar DO Chief Complaint: ABD PAIN History of Present Illness 86-year-old lady evaluated in the ER on 01/11 at the time presenting with lower abdominal pain, with finding of diverticulitis confirmed by imaging study, received a dose of cefuroxime and Flagyl, was discharged home with a course of Bactrim and Flagyl. Took several doses of the antibiotics, but was again feeling unwell, with abdominal pain, nausea, not able to keep down food or liquids or the medication, missed a number of doses. Return to the ER today due to continued to have left lower abdominal pain, radiating to the left hip as well. Here in ER reimaged with CT abdomen pelvis with similar findings with diverticulitis within the pelvis. She is noted to have, however, severe hyponatremia with sodium worse from 124 last visit to currently 114. Review of Systems Const: Reports: fatigue; Denies: fever(s) or chills Eyes: Denies: change in vision, eye discomfort or eye redness ENMT: Denies: throat pain, oral sores or ear or mastoid pain Card: Denies: chest pain, edema, pre-syncope or dyspnea on exertion Resp: Denies: dyspnea, productive cough, change in phlegm color or hemoptysis GI: Reports: abdominal pain, nausea and vomiting; Denies: diarrhea, constipation, hematochezia or melena : Denies: flank pain, urinary frequency or hematuria Musc: Denies: back pain, joint swelling or joint redness Skin/Breast: Denies: rash or new lesions Neuro: Denies: headache(s), numbness in extremities, weakness in extremities, dizziness or seizure-like activity Endo: Denies: polyuria or polydipsia Miah/Lymph: Denies: easy bleeding or tender lymph nodes All/Imm: Denies: urticaria or tongue swelling Medications/Allergies Home Medications Medication Instructions Recorded Confirmed Last Taken Type Toe sleeve #1 ea 02/18/20 12/13/21 Unknown Rx metoprolol tartrate 25 mg tablet 12.5 mg PO BID tab 07/13/20 12/13/21 11/05/20 09:00 History Diabetic shoes #1 ea 10/13/20 12/13/21 Unknown Rx L.acidophilus-bif.longum 15 mg (1 1 cap PO DAILY 11/05/20 12/13/21 Unknown History billion cell)capsule,delayed release (Probiotic Pearls) Liquid Multivitamins See Rx Instructions .ROUTE .COMPLEX 11/05/20 12/13/21 Unknown History echinacea 1 cap PO PRN 11/05/20 12/13/21 Unknown History milk thistle 1 cap PO PRN 11/05/20 12/13/21 Unknown History amlodipine 5 mg tablet 5 mg PO DAILY #90 tab 03/02/21 12/13/21 Unknown Rx furosemide 20 mg tablet (Lasix) 20 mg PO DAILY #90 tab 04/14/21 12/13/21 Unknown Rx potassium chloride 8 mEq 8 meq PO DAILY #90 tab 04/14/21 12/13/21 Unknown Rx tablet,extended release atorvastatin 40 mg tablet (Lipitor) 40 mg PO DAILY #90 tab 04/27/21 12/13/21 Unknown Rx blood sugar diagnostic (OneTouch #100 ea 05/21/21 12/13/21 Unknown Rx Ultra Test) losartan 100 mg tablet 50 mg PO DAILY 30 Days #30 tab 08/06/21 12/13/21 Unknown Rx nitroglycerin 0.4 mg sublingual 0.4 mg SUBLINGUAL Q5M PRN #50 tab 08/11/21 12/13/21 Unknown Rx tablet (Nitrostat) clopidogrel 75 mg tablet 75 mg PO QAM #90 tab 09/13/21 12/13/21 Unknown Rx meclizine 25 mg tablet See Rx Instructions .ROUTE 09/17/21 12/13/21 Unknown Rx .COMPLEX #90 tab alprazolam 0.25 mg tablet 0.25 mg PO .prn PRN #30 tab 09/20/21 12/13/21 Unknown Rx methylprednisolone 4 mg tablets in See Rx Instructions PO PER PKG DIR 09/20/21 12/13/21 Unknown Rx a dose pack (Medrol (Jose Manuel)) #21 ea ezetimibe 10 mg tablet (Zetia) 10 mg PO DAILY #90 tab 11/23/21 12/13/21 Unknown Rx albuterol sulfate 90 mcg/actuation 2 puff INHALATION Q6H PRN #8.5 g 11/24/21 12/13/21 Unknown Rx aerosol inhaler (ProAir HFA) levothyroxine 88 mcg tablet 88 mcg PO DAILY #90 tab 12/02/21 12/13/21 Unknown Rx omeprazole 40 mg capsule,delayed 40 mg PO DAILY #90 cap 12/02/21 12/13/21 Unknown Rx release Diabetic shoes with 3 inserts #1 ea 12/14/21 12/14/21 Unknown Rx hydrocodone 5 mg-acetaminophen 325 1 tab PO Q6H PRN #10 tab 01/11/22 Unknown Rx mg tablet metronidazole 500 mg tablet 500 mg PO BID 10 Days #20 tab 01/11/22 Unknown Rx sulfamethoxazole 800 1 tab PO BID 10 Days #20 tab 01/11/22 Unknown Rx mg-trimethoprim 160 mg tablet (Bactrim DS) ondansetron 8 mg disintegrating 8 mg PO Q8H #20 tab 01/14/22 Unknown Rx tablet Allergies Allergy/AdvReac Type Severity Reaction Status Date / Time ciprofloxacin [From Cipro] Allergy Severe weakness, Verified 12/13/21 14:45 dizziness. morphine Allergy unknown Verified 12/13/21 14:45 omeprazole Allergy arthritis Verified 12/13/21 14:45 pain penicillin G Allergy tongue Verified 12/13/21 14:45 swelling tramadol Allergy unknown Verified 12/13/21 14:45 PFSH Acute PFSH: Medical History Acquired hypothyroidism Arrhythmia ASHD (arteriosclerotic heart disease) Asymptomatic superficial varicosities of lower extremity, bilateral Benign essential hypertension Bilateral edema of lower extremity dependent mostly Bilateral hip pain Chronic obstructive pulmonary emphysema Diabetes Diastolic dysfunction Dilated aortic root Diverticula of colon Hammertoe, bilateral Intermittent palpitations Mixed hyperlipidemia 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 Poor compliance PVD (peripheral vascular disease) Type 2 diabetes mellitus, without long-term current use of insulin Vaginal prolapse Surgical History H/O: hysterectomy History of appendectomy History of cholecystectomy History of hip surgery Right RAZIA History of tonsillectomy S/P coronary artery stent placement S/P selective transsphenoidal pituitary adenomectomy Family History Father CAD (coronary artery disease) Mother Cancer Chronic kidney disease (CKD) Sister Diabetes Other Hypertension Denies family history of Clotting disorder Dementia Suicide Anesthesia complication Bleeding disorder Lung disease Stroke Social History Smoking and tobacco status: never smoked Alcohol intake: never Household members: none Housing: Apartment Marital status: / Number of children: 5 Number of grandchildren: 8 Highest education level completed: 10th Grade service: No Current occupational status: retired Female Reproductive History: Date of last menstrual period: 10/01/20 Vitals/I&O/Wt Last Vital Signs Pulse 60 01/15/22 01:24 Resp 16 01/15/22 01:24 BP 144/67 01/15/22 01:24 Pulse Ox 97 01/15/22 01:24 Physical Exam Narrative: Son at bedside. Const: COMMON NORMALS: alert GENERAL APPEARANCE: cooperative ORIENTATION/CONSCIOUSNESS: Yes awake OTHER: Weak. Sluggish responses. HENMT: COMMON NORMALS: normocephalic, EAC's normal, Normal external nose present and moist oral mucous membranes HEAD & SCALP: normocephalic NOSE: Normal external nose present EXTERNAL AUDITORY CANAL: EAC's normal Neck/C-Spine: COMMON NORMALS: no meningeal signs Chest: CHEST: Yes Symmetrical chest wall rise Resp: COMMON NORMALS: clear to auscultation bilaterally AUSCULTATION: clear to auscultation bilaterally Cardio: COMMON NORMALS: regular rate, regular rhythm and No murmurs present (Cardio) RATE: regular rate RHYTHM: regular rhythm GI: COMMON NORMALS: Normal to inspection, nondistended, normoactive bowel sounds present and Soft to palpation PALPATION: Yes Soft to palpation and Yes Tenderness to palpation present (GI) Details: LLQ Extremity: COMMON NORMALS: no pedal edema Neuro: COMMON NORMALS: moves all extremities SENSORIUM/ORIENTATION: Yes alert MENINGEAL SIGNS: Yes no meningeal signs Psych: COMMON NORMALS: mental status grossly normal Skin: COMMON NORMALS: no wounds RASHES: no rashes Data : 01/14/22 11:50 01/14/22 11:50 A&P Assessment and plan (1) Hyponatremia: Severe hyponatremia with acute on chronic component. Sodium 114. Discussed with her and her son. With acute component should be safe to have sodium rise quicker, however, 3 days back was 124 of unknown duration. Mild hyponatremia chronically before that. With sodium returning to 124 with subsequently exercise a more measured approach to sodium increased from thereon. Has received 1 L of fluid. Repeat BMP. Check sodium and intervals. Hyponatremia likely combination from hypovolemia with poor oral intake with diverticulitis, vomiting, and possibly contribution from Bactrim. Check TSH. Status: Acute (2) Diverticulitis: Would avoid further Bactrim. Continue Flagyl. Discussed with her limited options in terms of antibiotics given with penicillin, with previously severe reaction of tongue swelling, and intolerance to ciprofloxacin. He reports that things were spinning around her when she had had Cipro during a similar episode of diverticulitis in the past. Discussed with her consideration of a number of antibiotics, although each having a downside, including consideration of trial of ciprofloxacin and Primaxin. Consideration discussed consideration of not continuing antibiotics or continue anticoagulant, however, given she has persistent, possibly some worsening symptoms, without improvement despite taking some antibiotics, would raise concern regarding worsening of illness, progression to intra-abdominal abscess, or sepsis, septic shock, other comorbidities. After thoughtful consideration and discussion with her son they decide she will proceed with Levaquin combination and Flagyl for now, with further change or discussion in case of recurrence of unpleasant symptoms. CLD. Gentle IV hydration depending on sodium level. Pain control. Antiemetics. Last colonoscopy at age 76. Consider colonoscopy after recovery from diverticulitis. Status: Acute Plan CAD, s/p stenting Hypothyroidism COPD DM2 Diastolic dysfunction HLD PVD Other comorbidities. Requested home medications to be updated. Attestations Medical Necessity Statement*: Admission of over 2 midnights is anticipated for assessment management of severe hyponatremia, diverticulitis with inability to tolerate oral intake including antibiotics despite outpatient treatment. Coding Level of Care Code Acute Student Support Advisor for Blaire Coto Diagnoses Diverticulitis K57.92 Hyponatremia E87.1
[2022-01-15 04:20] LABS: Thyroid Stimulating Hormone 0.41 uIU/mL (0.27-4.20)
[2022-01-15] MEDS: levofloxacin-dextrose 5 % 750 MG/150 ML PREMIX 100 MG IV (05:40)
[2022-01-15] MEDS: metroNIDAZOLE IV 500 MG/100 ML PREMIX 100 MG IV ×3 (05:41→20:12)
--- NOTE | 2022-01-15 07:44 | PC.NURSE ---
This nurse assumed care of patient at 0700 this am, Patient AAOx4, BP soft, c/o abdominal pain and not feeling well. Report called to Francisca DENISE.
[2022-01-15] MEDS: ondansetron 2 mg/ML SDV 2 mL 4 MG IVP ×2 (08:20→18:41)
[2022-01-15 08:39] LABS: Glucose Point of Care 85 mg/dL (70-110)
[2022-01-15 08:48] LABS: Anion Gap 17.1 (5-19); Blood Urea Nitrogen 10 mg/dL (8-23); Calcium 8.8 mg/dL (8.5-10.5); Carbon Dioxide 18 mmol/L (22-29); Chloride 84 mmol/L (98-107); Glucose 82 mg/dL (65-115); Osmolality Calculated 238 mOsm/kg (285-295); Potassium 4.1 mmol/L (3.5-5.1)
[2022-01-15 08:53] LABS: Sodium 115 mmol/L (136-145)
--- NOTE | 2022-01-15 09:24 | PM.MISC ---
Miscellaneous Note Purpose of Documentation: Mini Progress Note Note: Patient continues to have nausea and vomiting. She is unable to tolerate anything by mouth. I believe she is possibly symptomatic due to her severe hyponatremia. Sodium is still 114 this morning. I will order urine studies urine sodium, urine osmolality, serum osmolality. We will start hypertonic saline. I will transfer patient to ICU. I will consult nephrology. From diverticulitis standpoint she has tolerated levofloxacin okay. We will continue levofloxacin and Flagyl for now. I will add promethazine for nausea. Increase frequency of Zofran to every 4 hours as needed. I will keep her n.p.o. for now. We will start liquid as tolerated. Lungs clear to auscultation, abdomen soft, nontender overall with mild tenderness to palpation around left lower quadrant region. Appears dehydrated. No lower extremity edema, alert and oriented but may be slightly confused. Son at bedside. Patient not very talkative. Very slow in answering questions. Rest of management as per history and physical document.
[2022-01-15] MEDS: metoprolol tartrate 25 mg Tablet 12.5 MG PO (09:38)
[2022-01-15] MEDS: levothyroxine 88 mcg Tablet PO (09:38)
[2022-01-15] MEDS: atorvastatin 40 mg Tablet PO (09:39)
[2022-01-15] MEDS: pantoprazole DR 40 mg Tablet PO (09:39)
[2022-01-15] MEDS: clopidogrel 75 mg Tablet PO (09:39)
--- NOTE | 2022-01-15 09:52 | PC.PHAR ---
UNABLE TO GET AHOLD OF PT TO VERIFY MEDICATIONS-CALLED PTS DAUGHTER CHRISTI SHE LIVES IN [place] STATES THAT [facility] PTS SON OR [facility]SMAN PTS SISTER MIGHT KNOW THE PTS MEDICATIONS-CALLED [facility]TS SON NO ANSWER CALLED PTS SISTER OSMAN STATES THE PT TAKES CARE OF HER OWN MEDICATIONS-MEDICATIONS ENTERED ARE WHAT SHOWS ON EXT MED HISTORY THAT HAS BEEN FILLED RECENTLY AND WHAT WAS ON PREVIOUS ENTERED MED LIST-OMEPRAZOLE 40MG DAILY FILLED ON 12/02/21 90D/S IS DOWN AN ALLERGY SO TOOK THAT MEDICATION OFF MED LIST-LIPITOR 40MG LAST FILLED 03-31-21 30D/S AND KCL 8MEQ DAILY LAST FILLED 05/07/21 90D/S-NOTES ARE MADE IN THE PHARMACY COMMENTS
--- NOTE | 2022-01-15 11:02 | PM.CONSULT ---
Providers/Reason For Consult Consulting Physician/Specialty*: Marly Koenig DO, telenephrology Reason for Consult*: Hyponatremia Requesting Physician: Lillie Hanna MD Attending Physician: Lillie Hanna MD Primary Care Provider: Lashawn Zaldivar DO History of Present Illness History of Present Illness Cristi Vu is a 86 year old female presented to hospital for evaluation abdominal pain. Admitted with diverticulitis. + chronic hyponatremia, worse on presentation than prior. I am unable to get good history from her. Son at bedside states she may be a little more confused. Medications/Allergies Home Medications Medication Instructions Recorded Confirmed Last Taken Type Toe sleeve #1 ea 02/18/20 01/15/22 Unknown Rx metoprolol tartrate 25 mg tablet 12.5 mg PO BID tab 07/13/20 01/15/22 11/05/20 09:00 History Diabetic shoes #1 ea 10/13/20 01/15/22 Unknown Rx L.acidophilus-bif.longum 15 mg (1 1 cap PO DAILY 11/05/20 01/15/22 Unknown History billion cell)capsule,delayed release (Probiotic Pearls) Liquid Multivitamins See Rx Instructions .ROUTE .COMPLEX 11/05/20 01/15/22 Unknown History milk thistle 1 cap PO PRN 11/05/20 01/15/22 Unknown History amlodipine 5 mg tablet 5 mg PO DAILY #90 tab 03/02/21 01/15/22 Unknown Rx furosemide 20 mg tablet (Lasix) 20 mg PO DAILY #90 tab 04/14/21 01/15/22 Unknown Rx blood sugar diagnostic (OneTouch #100 ea 05/21/21 01/15/22 Unknown Rx Ultra Test) losartan 100 mg tablet 50 mg PO DAILY 30 Days #30 tab 08/06/21 01/15/22 Unknown Rx nitroglycerin 0.4 mg sublingual 0.4 mg SUBLINGUAL Q5M PRN #50 tab 08/11/21 01/15/22 Unknown Rx tablet (Nitrostat) clopidogrel 75 mg tablet 75 mg PO QAM #90 tab 09/13/21 01/15/22 Unknown Rx meclizine 25 mg tablet See Rx Instructions .ROUTE 09/17/21 01/15/22 Unknown Rx .COMPLEX #90 tab ezetimibe 10 mg tablet (Zetia) 10 mg PO DAILY #90 tab 11/23/21 01/15/22 Unknown Rx albuterol sulfate 90 mcg/actuation 2 puff INHALATION Q6H PRN #8.5 g 11/24/21 01/15/22 Unknown Rx aerosol inhaler (ProAir HFA) levothyroxine 88 mcg tablet 88 mcg PO DAILY #90 tab 12/02/21 01/15/22 Unknown Rx Diabetic shoes with 3 inserts #1 ea 12/14/21 01/15/22 Unknown Rx hydrocodone 5 mg-acetaminophen 325 1 tab PO Q6H PRN #10 tab 01/11/22 01/15/22 Unknown Rx mg tablet metronidazole 500 mg tablet 500 mg PO BID 10 Days #20 tab 01/11/22 01/15/22 Unknown Rx sulfamethoxazole 800 1 tab PO BID 10 Days #20 tab 01/11/22 01/15/22 Unknown Rx mg-trimethoprim 160 mg tablet (Bactrim DS) ondansetron 8 mg disintegrating 8 mg PO Q8H #20 tab 01/14/22 01/15/22 Unknown Rx tablet alprazolam 0.25 mg tablet 0.25 mg PO DAILY PRN 01/15/22 01/15/22 Unknown History Allergies Allergy/AdvReac Type Severity Reaction Status Date / Time ciprofloxacin [From Cipro] Allergy Severe weakness, Verified 12/13/21 14:45 dizziness. morphine Allergy unknown Verified 12/13/21 14:45 omeprazole Allergy arthritis Verified 12/13/21 14:45 pain penicillin G Allergy tongue Verified 12/13/21 14:45 swelling tramadol Allergy unknown Verified 12/13/21 14:45 Current Medications Generic Name Dose Route Start Last Admin Trade Name Blakeq PRN Reason Stop Dose Admin Atorvastatin Calcium 40 mg 01/15/22 09:00 01/15/22 09:39 Atorvastatin 40 Mg Tablet PO 40 mg DAILY JESSICA Administration Clopidogrel Bisulfate 75 mg 01/15/22 06:00 01/15/22 09:39 Clopidogrel 75 Mg Tablet PO 75 mg QAM JESSICA Administration Heparin Sodium (Porcine) 5,000 unit 01/15/22 04:00 01/15/22 05:42 Heparin 5,000 Unit/Ml Inj 1 Ml SUBCUT Not Given Q8H JESSICA Levofloxacin/Dextrose 750 mg in 150 mls @ 100 mls/hr 01/15/22 04:00 01/15/22 08:13 Levaquin-D5w IV Infused Q24H JESSICA Infusion Protocol Metronidazole 500 mg in 100 mls @ 100 mls/hr 01/15/22 04:00 01/15/22 08:12 Flagyl Iv IV Infused Q8H JESSICA Infusion Protocol Levothyroxine Sodium 88 mcg 01/15/22 09:00 01/15/22 09:38 Levothyroxine 88 Mcg Tablet PO 88 mcg DAILY JESSICA Administration Metoprolol Tartrate 12.5 mg 01/15/22 09:00 01/15/22 09:38 Metoprolol Tartrate 25 Mg Tablet PO 12.5 mg BID JESSICA Administration Ondansetron HCl 4 mg 01/15/22 03:59 01/15/22 08:20 Ondansetron 2 Mg/Ml Sdv 2 Ml IVP 4 mg Q8H PRN Administration vomiting, or N/V if npo PFSH Acute PFSH: Medical History Acquired hypothyroidism Arrhythmia ASHD (arteriosclerotic heart disease) Asymptomatic superficial varicosities of lower extremity, bilateral Benign essential hypertension Bilateral edema of lower extremity dependent mostly Bilateral hip pain Chronic obstructive pulmonary emphysema Diabetes Diastolic dysfunction Dilated aortic root Diverticula of colon Hammertoe, bilateral Intermittent palpitations Mixed hyperlipidemia 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 Poor compliance PVD (peripheral vascular disease) Type 2 diabetes mellitus, without long-term current use of insulin Vaginal prolapse Surgical History H/O: hysterectomy History of appendectomy History of cholecystectomy History of hip surgery Right RAZIA History of tonsillectomy S/P coronary artery stent placement S/P selective transsphenoidal pituitary adenomectomy Family History Father CAD (coronary artery disease) Mother Cancer Chronic kidney disease (CKD) Sister Diabetes Other Hypertension Denies family history of Clotting disorder Dementia Suicide Anesthesia complication Bleeding disorder Lung disease Stroke Social History Smoking and tobacco status: never smoked Alcohol intake: never Household members: none Housing: Apartment Marital status: / Number of children: 5 Number of grandchildren: 8 Highest education level completed: 10th Grade service: No Current occupational status: retired Female Reproductive History: Date of last menstrual period: 10/01/20 Vitals/I&O/Wt Last Vital Signs Temp 97.8 F 01/15/22 08:22 Pulse 85 01/15/22 08:27 Resp 16 01/15/22 08:27 BP 132/67 01/15/22 08:22 Pulse Ox 98 01/15/22 08:27 01/14/22 01/15/22 01/15/22 22:59 06:59 14:59 Intake Total 1000 / 1000 250 / 250 Balance 1000 / 1000 250 / 250 Physical Exam Const: OTHER: awake, denies complaints Extremity: NARRATIVE EXTREMITY EXAM: minimal ankle edema Data : 01/14/22 11:50 01/15/22 08:20 CT Abd/Pel: Radiologist's impression: Kidneys and ureters: There are multiple right renal collecting system calcifications. The left kidney is normal. There is no evidence of hydronephrosis. There is no stone along the course of either ureter. A&P Assessment and plan (1) Hyponatremia: Status: Acute Plan 1. Hyponatremia, possibly symptomatic. Serum sodium not significantly better after NSS. Urine sodium and osmolality need to be sent 2. Normal anion gap metabolic acidosis 3. Diverticulitis Recommend: 100 ml 3% saline bolus. Verbal order given to pharmacy. Goal serum sodium > 120 mEq/L. May repeat x 2. Added NaCl oral and sodium bicarbonate. Change all IV meds to NSS if compatible. Continue Q4h sodium. 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
[2022-01-15] MEDS: heparin 5,000 unit/mL INJ 1 mL 5000 UNIT SUBCUT ×2 (13:09→20:13)
[2022-01-15] MEDS: pantoprazole 40 mg SDV IVP (13:09)
[2022-01-15 13:48] LABS: Sodium 115 mmol/L (136-145)
[2022-01-15 15:57] LABS: Sodium 115 mmol/L (136-145)
[2022-01-15] MEDS: sodium bicarbonate 650 mg Tablet PO ×2 (16:01→20:12)
[2022-01-15 17:01] LABS: Urine Random Sodium 117 mmol/L
[2022-01-15] MEDS: sodium chloride 1 gm Tablet PO (18:07)
[2022-01-15] MEDS: HYDROcodone-acetaminophen 5-325 mg Tablet 1 TAB PO (20:12)
[2022-01-15 20:52] LABS: Sodium 116 mmol/L (136-145)
[2022-01-15] MEDS: HYDROmorphone 1 mg/mL INJ 1 mL 0.2 MG IVP ×2 (21:44→23:46)
[2022-01-16] VITALS (24 sets, daily range): BP systolic 94–151; BP diastolic 45–99; PULSE 52–62; RESP 10–22; TEMP 36.7; O2SAT 92–97
[2022-01-16] MEDS: HYDROmorphone 1 mg/mL INJ 1 mL 0.2 MG IVP ×3 (01:35→05:54)
[2022-01-16] MEDS: heparin 5,000 unit/mL INJ 1 mL 5000 UNIT SUBCUT ×3 (03:02→20:25)
[2022-01-16] MEDS: metroNIDAZOLE IV 500 MG/100 ML PREMIX 100 MG IV ×2 (03:03→20:31)
[2022-01-16] MEDS: levofloxacin-dextrose 5 % 750 MG/150 ML PREMIX 100 MG IV (03:03)
[2022-01-16] MEDS: promethazine 25 mg/mL SDV 1 mL 12.5 MG IM (03:46)
[2022-01-16] MEDS: clopidogrel 75 mg Tablet PO (05:05)
[2022-01-16 05:18] LABS: Basophils % 0.3 %; Eosinophils % 0.3 %; Hematocrit 32.7 % (37.0-47.0); Hemoglobin 11.3 g/dL (11.5-15.3); Lymphocytes # 1.1 10^3/uL (0.8-4.8); Lymphocytes % 39.7 %; Mean Corpuscular HGB Conc 34.6 g/dL (30.0-36.0); Mean Corpuscular Hemoglobin 28.8 pg (28.0-34.0); Mean Corpuscular Volume 83.4 fl (81-99); Mean Platelet Volume 9.5 fL (7.4-10.4); Monocytes # 0.3 10^3/uL (0.2-0.9); Monocytes % 11.5 %; Neutrophils # 1.37 10^3/uL (1.8-7.7); Neutrophils % 47.9 %; Nucleated Red Blood Cells % 0 %; Platelet Count 244 10^3/cmm (130-400); Red Blood Count 3.92 10^6/uL (4.1-5.3); White Blood Count 2.9 10^3/uL (4.0-10.0)
[2022-01-16 05:47] LABS: Anion Gap 14.4 (5-19); Blood Urea Nitrogen 10 mg/dL (8-23); Calcium 8.7 mg/dL (8.5-10.5); Carbon Dioxide 18 mmol/L (22-29); Chloride 90 mmol/L (98-107); Glucose 89 mg/dL (65-115); Osmolality Calculated 247 mOsm/kg (285-295); Potassium 3.4 mmol/L (3.5-5.1)
[2022-01-16 06:04] LABS: Sodium 119 mmol/L (136-145)
--- NOTE | 2022-01-16 06:14 | P.PN_ITS ---
Subjective Subjective: Seen via telemedicine with assistance of RN at bedside. reports trouble swallowing, less abdominal pain Vitals/I&O/Wt Last Vital Signs Temp 97.9 F 01/15/22 14:00 Pulse 54 L 01/16/22 04:00 Resp 10 L 01/16/22 04:00 BP 121/61 01/16/22 04:00 Pulse Ox 93 01/16/22 04:00 01/15/22 01/15/22 01/16/22 14:59 22:59 06:59 Intake Total 250 / 250 500 / 750 350 / 1100 Output Total 300 / 300 410 / 710 350 / 1060 Balance -50 / -50 90 / 40 0 / 40 Weight last 48 hrs Weight 55.474 kg Physical Exam Const: COMMON NORMALS: no acute distress Extremity: NARRATIVE EXTREMITY EXAM: 1+ edema Urinary Catheter Management: Cunha: Cath Placed During This Visit: yes Reason for Continuing Indwelling Catheter: Accurate Measurement of Urinary Output in Critically Ill Patients Urinary Catheter Date of Insertion: 01/15/22 Urinary Catheter Time of Insertion: 16:20 Data : 01/16/22 04:20 01/16/22 06:55 Other Labs: urine sodium 117 mEq/L A&P Assessment and plan (1) Hyponatremia: Status: Acute Plan 1. Hyponatremia, improved after 300 ml 3% saline, most recent serum sodium lower. Urine osmolality pending. 2. Normal anion gap metabolic acidosis 3. Hypokalemia, replace 20 mEq elixer po 4. Diverticulitis Recommend: continuous 3% saline at 30 ml/hr, low dose IV lasix, Q3 hr sodium. continue oral NaCl and sodium bicarbonate. Change all IV meds to NSS if compatible. 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
[2022-01-16] MEDS: potassium chloride oral liq 20 mEq/15 mL UDC PO (07:08)
[2022-01-16 07:44] LABS: Sodium 117 mmol/L (136-145)
--- NOTE | 2022-01-16 08:54 | PM.PN ---
Subjective Subjective: Seen this morning. Patient complains of difficulty swallowing. She states it gets stuck in her chest. She has to drink lots of water to wash it down at times. She says she has difficulty with solids and liquids at various times. And suddenly going on for quite some time now and is not a new thing. Otherwise sodium was 119 this morning and later dropped to 117. She did get 300 cc of normal saline hypertonic yesterday. Potassium low this morning it was repleted by nephrology. Nephro plans to give her low-dose diuretic today and keep on very low-dose hypertonic saline. I have ordered for PICC line placement. Urine sodium 117. Patient no longer having nausea or vomiting. Abdominal pain is also improved. Vitals/I&O/Wt Last Vital Signs Temp 97.9 F 01/15/22 14:00 Pulse 52 L 01/16/22 08:00 Resp 17 01/16/22 08:00 BP 115/52 01/16/22 08:00 Pulse Ox 94 01/16/22 07:00 01/15/22 01/16/22 01/16/22 22:59 06:59 14:59 Intake Total 500 / 750 350 / 1100 Output Total 410 / 710 350 / 1060 Balance 90 / 40 0 / 40 Weight last 48 hrs Weight 55.474 kg Physical Exam Narrative: General: Alert oriented x3, patient seen sitting up in bed. HEENT: Normocephalic, atraumatic, EOMI, breathing normally Cardio: Regular rate rhythm, normal S1-S2, Respiratory: Good bilateral air entry, no wheezes no rhonchi appreciated GI: Abdomen soft, nontender, nondistended, bowel sounds + Behavior: Appropriate and cooperative Extremities: 1+ pitting edema upto knees b/l LE, no cyanosis Urinary Catheter Management: Cunha: Cath Placed During This Visit: yes Reason for Continuing Indwelling Catheter: Accurate Measurement of Urinary Output in Critically Ill Patients Urinary Catheter Date of Insertion: 01/15/22 Urinary Catheter Time of Insertion: 16:20 Data : 01/16/22 04:20 01/16/22 06:55 A&P Assessment and plan (1) Diverticulitis: Status: Acute (2) Hyponatremia: Status: Acute (3) Abdominal pain: Status: Acute (4) Anxiety: Status: Acute (5) Hypercalcemia: Status: Acute (6) Mixed hyperlipidemia: Status: Acute (7) Benign essential hypertension: Status: Acute (8) Type 2 diabetes mellitus, without long-term current use of insulin: Status: Acute Qualifiers: Diabetes mellitus complication status: with neurologic complications Diabetes mellitus complication detail: with polyneuropathy Qualified Code(s): E11.42 - Type 2 diabetes mellitus with diabetic polyneuropathy (9) Acquired hypothyroidism: Status: Acute (10) Diverticulitis: Status: Acute Plan #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 Continue management for hyponatremia. 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 Urine sodium 117. Urine osm pending, serum osm pending. - COntinue cipro and flagyl IV for diverticulitis - NPO at this time. MOdified diet as per speech recommendations - Barium swallow in AM for workup of dysphagia - Continue duoneb, plavix, levothyroxine, losartan Full Code Son at bedside updated DVT PPX: SCDS, heparin Attestations Medical Necessity Statement*: Severe hyponatremia, acute diverticulitis. Needs ICU monitoring for severe hyponatremia. 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
[2022-01-16] MEDS: pantoprazole 40 mg SDV IVP (09:20)
[2022-01-16] MEDS: levothyroxine 88 mcg Tablet PO (09:21)
[2022-01-16] MEDS: metoprolol tartrate 25 mg Tablet 12.5 MG PO ×2 (09:21→17:36)
[2022-01-16] MEDS: sodium chloride 1 gm Tablet PO ×2 (09:21→17:36)
[2022-01-16] MEDS: sodium bicarbonate 650 mg Tablet PO ×3 (09:21→20:31)
--- NOTE | 2022-01-16 09:59 | PC.NURSE ---
am brk given with poor appitite po liquids c/o some difficulty swallowing very slow response to question but does respond appropriately
[2022-01-16] MEDS: FUROsemide 10 mg/mL SDV 2mL IVP ×2 (10:47→22:26)
[2022-01-16] MEDS: sodium chloride 3% 500 ML 30 ML IV (10:47)
[2022-01-16] MEDS: metroNIDAZOLE IV 500 MG/100 ML PREMIX 200 MG IV (12:00)
--- NOTE | 2022-01-16 13:45 | PC.NURSE ---
loose bm in bed bath and linen change done head of bed elevated ..slow response to answer questions
--- NOTE | 2022-01-16 14:08 | CTR_ITS ---
PROCEDURE INFORMATION: Exam: CT Head Without Contrast Exam date and time: 01/16/2022 2:27 PM Age: 86 years old Clinical indication: Altered mental status/memory loss; Confusion or disorientation; Additional info: Slow to respond. Somewhat altered TECHNIQUE: Imaging protocol: Computed tomography of the head without contrast. Radiation optimization: All CT scans at this facility use at least one of these dose optimization techniques: automated exposure control; mA and/or kV adjustment per patient size (includes targeted exams where dose is matched to clinical indication); or iterative reconstruction. COMPARISON: CT head wo con* [id number] 11/05/2020 12:17 PM RADIATION DOSE METRICS: Total DLP (mGy-cm): 1041.28 FINDINGS: Brain: There is no acute intracranial hemorrhage. There are no extra-axial fluid collections. There is lucency in the cerebral white matter, likely microvascular disease although non-specific. [place] white differentiation is intact. No evidence of mass. There is no mass effect or midline shift. Cerebral ventricles: The ventricles and sulci are enlarged, consistent with age-related volume loss / atrophy. No hydrocephalus. Paranasal sinuses: There is stable appearance is sphenoid sinus which is opacified and this may be postoperative. Minimally visualized left maxillary sinus is opacified also present on prior examination. Mastoid air cells: No significant mastoid effusion. Bones/joints: No acute fracture. Soft tissues: Unremarkable as visualized. Vasculature: There is vascular calcification. CT/CT head wo con* [id number] IMPRESSION: 1. No evidence of acute intracranial abnormality. No evidence of acute infarction, hemorrhage, or mass. 2. Senescent changes.
[2022-01-16 14:47] LABS: Sodium 122 mmol/L (136-145)
[2022-01-16 19:43] LABS: Sodium 120 mmol/L (136-145)
--- NOTE | 2022-01-16 20:51 | PC.NURSE ---
New Orders Received Informed Dr. Koenig pt new lab results. Received verbal orders to draw sodium labs Q4HR, continue holding all IV fluids and call if next sodium level is under 120.
[2022-01-16] MEDS: lanolin oint 7 gm 1 APPLIC TOPICAL (22:52)
[2022-01-17] VITALS (20 sets, daily range): BP systolic 97–165; BP diastolic 52–79; PULSE 51–70; RESP 9–20; TEMP 36.7–36.8; O2SAT 90–100
[2022-01-17 01:02] LABS: Sodium 124 mmol/L (136-145)
[2022-01-17] MEDS: metroNIDAZOLE IV 500 MG/100 ML PREMIX 100 MG IV ×3 (04:27→20:41)
[2022-01-17] MEDS: levofloxacin-dextrose 5 % 750 MG/150 ML PREMIX 100 MG IV (04:27)
[2022-01-17] MEDS: heparin 5,000 unit/mL INJ 1 mL 5000 UNIT SUBCUT ×3 (04:28→20:41)
[2022-01-17 04:53] LABS: Basophils % 0.3 %; Hematocrit 35.9 % (37.0-47.0); Hemoglobin 12.2 g/dL (11.5-15.3); Lymphocytes # 1.3 10^3/uL (0.8-4.8); Lymphocytes % 39.7 %; Mean Corpuscular Hemoglobin 28.4 pg (28.0-34.0); Mean Corpuscular Volume 83.7 fl (81-99); Mean Platelet Volume 9.1 fL (7.4-10.4); Monocytes # 0.4 10^3/uL (0.2-0.9); Monocytes % 11.7 %; Neutrophils # 1.47 10^3/uL (1.8-7.7); Neutrophils % 46.7 %; Nucleated Red Blood Cells % 0 %; Platelet Count 258 10^3/cmm (130-400); Red Blood Count 4.29 10^6/uL (4.1-5.3); Red Cell Distribution Width 12.2 % (12.1-15.1); White Blood Count 3.2 10^3/uL (4.0-10.0)
[2022-01-17] MEDS: clopidogrel 75 mg Tablet PO (05:34)
[2022-01-17 05:35] LABS: Anion Gap 17.7 (5-19); Blood Urea Nitrogen 10 mg/dL (8-23); Calcium 9.2 mg/dL (8.5-10.5); Carbon Dioxide 18 mmol/L (22-29); Chloride 93 mmol/L (98-107); Glucose 64 mg/dL (65-115); Osmolality Calculated 257 mOsm/kg (285-295); Potassium 3.7 mmol/L (3.5-5.1); Sodium 125 mmol/L (136-145)
--- NOTE | 2022-01-17 06:46 | PC.NURSE ---
Shift Summary Patient had an uneventful night. Remains on room air, alert/oriented x4 and no wounds/skin issues noted at this time. Cunha catheter drained 1300 mls of urine overnight.
--- NOTE | 2022-01-17 07:53 | XR_ITS ---
WS: [id number] PORTABLE CHEST HISTORY: hypoxia COMPARISON: 04/10/2021 Lungs are clear and well expanded. No pleural effusion or pneumothorax. Cardiac size: Normal. Mediastinum/Aorta: Mild atherosclerosis aorta. No mediastinal widening. Thoracolumbar scoliosis and osteopenia. XR/XR chest 1V portable [id number] IMPRESSION: Mild atherosclerosis aorta. No pneumonia.
--- NOTE | 2022-01-17 08:19 | FL_ITS ---
WS: [id number] ESOPHAGRAM TECHNIQUE: Single contrast examination performed in the upright position. Limited examination due to patient's difficulty standing. CLINICAL INFORMATION: difficulty swallowing COMPARISON: None. FINDINGS: Swallowing: Normal. No evidence of aspiration. Esophagus: Moderate esophageal dysmotility with tertiary contractions and delayed emptying. No obstru cting stricture or mass. Gastroesophageal reflux: None visualized in the upright position. Fluoroscopy time: 1.2 # of spot films: 26 FL/FL barium swallow [id number] IMPRESSION: Limited examination due to patient's difficulty standing. 1. Moderate esophageal dysmotility with tertiary contractions and delayed empt ni. No obstructing stricture or mass. 2. No visualized reflux in the upright position. 3. No visualized aspiration.
--- NOTE | 2022-01-17 08:22 | ECG_ITS ---
[facility] Test Date: 2022-01-17 Pat Name: Cristi Vu Department: Room: [facility] Gender: Female Store Shopper: : 1935 Requested By: Lillie Hanna Order Number: [id number] Rosina MD: Binh English M.D. Measurements Intervals [place] Rate: 55 P: 39 [place]: 229 QRS: -15 QRSD: 88 T: 204 QT: 420 QTc: 404 Interpretive Statements SINUS BRADYCARDIA WITH FIRST DEGREE AV BLOCK MODERATE T-WAVE ABNORMALITY, CONSIDER ANTEROLATERAL ISCHEMIA [-0.1+ mV T-WAVE IN V3-V6] MODERATE T-WAVE ABNORMALITY, CONSIDER INFERIOR ISCHEMIA [-0.1+ mV T-WAVE IN II/aVF] Compared to ECG 01/05/2019 19:11:51 T-wave abnormality now present Possible ischemia now present Electronically Signed On 01-17-2022 18:22:16 CDT by Binh English M.D. [email or web address]
--- NOTE | 2022-01-17 08:22 | XRR_ITS ---
PROCEDURE INFORMATION: Exam: XR Abdomen Exam date and time: 01/17/2022 9:06 AM Age: 86 years old Clinical indication: Abdominal pain; Additional info: Abd pain TECHNIQUE: Imaging protocol: Radiologic exam of the abdomen. Views: Frontal supine view of the abdomen. 1 View. COMPARISON: CT abdomen pelvis con [id number] 01/15/2022 12:25 AM FINDINGS: Gastrointestinal tract: Normal. No bowel dilation. Bones/joints: Right total hip arthroplasty. XR/XR KUB portable [id number] IMPRESSION: No acute findings.
--- NOTE | 2022-01-17 08:23 | PM.PN ---
Subjective Subjective: more alert and vocalizing better today Vitals/I&O/Wt Last Vital Signs Temp 98.1 F 01/17/22 07:41 Pulse 59 L 01/17/22 07:41 Resp 9 L 01/17/22 07:41 BP 104/53 01/17/22 07:41 Pulse Ox 90 01/17/22 07:41 01/16/22 01/17/22 01/17/22 22:59 06:59 14:59 Intake Total 346.5 / 596.5 350 / 946.5 Output Total 1000 / 1000 1300 / 2300 Balance -653.5 / -403.5 -950 / -1353.5 Physical Exam Const: COMMON NORMALS: no acute distress and alert Neuro: SENSORIUM/ORIENTATION: Yes alert Urinary Catheter Management: Cunha: Cath Placed During This Visit: yes Reason for Continuing Indwelling Catheter: Accurate Measurement of Urinary Output in Critically Ill Patients Urinary Catheter Date of Insertion: 01/15/22 Urinary Catheter Time of Insertion: 16:20 Data : 01/17/22 04:25 01/17/22 04:25 A&P Assessment and plan (1) Hyponatremia: Status: Acute Plan Seen via telemedicine with assistance of RN at bedside 1. Hyponatremia, improved, appears most likely as result of diuresis 2. Normal anion gap metabolic acidosis 3. Hypokalemia, resolved 4. Diverticulitis Recommend: D/c NaCl and furosemide for now. Repeat sodium later today. 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
--- NOTE | 2022-01-17 09:01 | PM.PN ---
Subjective Subjective: Seen this morning. Patient is appearing a lot better today. She is more talkative and making her needs known. She says however that she does not feel very good. Sodium 125 this morning. 2500 cc urine output since yesterday.Denies chest pain or shortness of breath Vitals/I&O/Wt Last Vital Signs Temp 98.1 F 01/17/22 07:41 Pulse 59 L 01/17/22 07:41 Resp 9 L 01/17/22 07:41 BP 104/53 01/17/22 07:41 Pulse Ox 90 01/17/22 07:41 01/16/22 01/17/22 01/17/22 22:59 06:59 14:59 Intake Total 346.5 / 596.5 350 / 946.5 Output Total 1000 / 1000 1300 / 2300 Balance -653.5 / -403.5 -950 / -1353.5 Physical Exam Narrative: General: Alert oriented x3, patient seen sitting up HEENT: Normocephalic, atraumatic, EOMI, breathing normally Cardio: Regular rate rhythm, normal S1-S2, Respiratory: Good bilateral air entry, no wheezes no rhonchi appreciated GI: Abdomen soft, mildly tender to palpation left lower quadrant, increased distention compared to yesterday, bowel sounds present but very hypoactive. Behavior: Appropriate and cooperative Extremities: Trace pitting edema upto knees b/l LE but improved than yesterday no cyanosis Urinary Catheter Management: Cunha: Cath Placed During This Visit: yes Reason for Continuing Indwelling Catheter: Accurate Measurement of Urinary Output in Critically Ill Patients Urinary Catheter Date of Insertion: 01/15/22 Urinary Catheter Time of Insertion: 16:20 Data : 01/17/22 04:25 01/17/22 04:25 A&P Assessment and plan (1) Diverticulitis: Status: Acute (2) Hyponatremia: Status: Acute (3) Diverticulitis: Status: Acute (4) Abdominal pain: Status: Acute (5) Hiatal hernia: Status: Acute (6) Anxiety: Status: Acute (7) Constipation: Status: Acute (8) Diabetes: Status: Acute Qualifiers: Diabetes mellitus type: type 2 Diabetes mellitus machine preservative filler insulin use: without penitentiary use Diabetes mellitus complication status: without complication Qualified Code(s): E11.9 - Type 2 diabetes mellitus without complications (9) Type 2 diabetes mellitus, without long-term current use of insulin: Status: Acute Qualifiers: Diabetes mellitus complication status: with neurologic complications Diabetes mellitus complication detail: with polyneuropathy Qualified Code(s): E11.42 - Type 2 diabetes mellitus with diabetic polyneuropathy (10) Benign essential hypertension: Status: Acute (11) ASHD (arteriosclerotic heart disease): Status: Acute (12) Mixed hyperlipidemia: Status: Acute (13) Intermittent palpitations: Status: Acute (14) Bilateral edema of lower extremity: Status: Acute Plan #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 Continue management for hyponatremia. Salt tablet 1 gm PO BID -Stop hypertonic saline and Lasix at this time. - Most likely etiology SIADH. Sodium 125 today. - Continue cipro and flagyl IV for diverticulitis - NPO at this time. MOdified diet as per speech recommendations. Barium swallow today. - Consult gen surgery for evaluation. Her abdominal exam appears worse today. Continues to complain of nausea. - Continue duoneb, plavix, levothyroxine, losartan - Had one time drop in HR to 30. Will hold metoprolol for now. - Will order compression stockings for her Full Code Son at bedside updated DVT PPX: SCDS, heparin Ok to transfer to floor today. Attestations Medical Necessity Statement*: Needs inpt management of dysphagia, diverticlutis. 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 [facility] Fwd Diagnoses Diverticulitis K57.92 Hyponatremia E87.1 Diverticulitis K57.92 Abdominal pain R10.9 Hiatal hernia K44.9 Anxiety F41.9 Constipation K59.00 Diabetes E11.9 Diabetes mellitus type: type 2 Diabetes mellitus penitentiary insulin use: without penitentiary use Diabetes mellitus complication status: without complication Type 2 diabetes mellitus, without long-term current use of insulin E11.42 Diabetes mellitus complication status: with neurologic complications Diabetes mellitus complication detail: with polyneuropathy Benign essential hypertension I10 ASHD (arteriosclerotic heart disease) I25.10 Mixed hyperlipidemia E78.2 Intermittent palpitations R00.2 Bilateral edema of lower extremity R60.0
[2022-01-17] MEDS: levothyroxine 88 mcg Tablet PO (09:28)
[2022-01-17] MEDS: pantoprazole 40 mg SDV IVP (09:28)
--- NOTE | 2022-01-17 10:03 | P.CONIM_ITS ---
Providers/Reason For Consult Consulting Physician/Specialty*: Kevin Jean MD Reason for Consult*: Abdominal distention Attending Physician: Lillie Hanna MD Primary Care Provider: Lashawn Zaldivar DO History of Present Illness History of Present Illness Ms. Cristi Vu is a pleasant 86 year old female presented to the ER with lower abdominal pain and was found to have diverticulitis on the CT scan. Patient was admitted to the hospitalist service for further care. As the pa kathleen was found to have hyponatremia she was transferred to the ICU for further monitoring. 01/11/2022 patient did have a CT of the abdomen pelvis 1.? Findings compatible with acute diverticulitis described above with a small amount of free fluid in the pelvis. No drainable abscess or drainable fluid collection. 2.? Prior cholecystectomy and hysterectomy. 3.? No other significant interval changes. CT of the abdomen and pelvis was done on 01/15/2022 There is thickening of the sigmoid colon and mild inflammatory strange is adjacent with a small and a fluid in the pelvis consistent with acute diverticulitis not significantly changed. Appendix: A normal appendix is identified. KUB was done today showed no acute finding Per hospitalist service patient seems to be bloated and last time pass gas was yesterday associated with nausea and vomiting General surgery was consulted for further evaluation and potential management. I went to see the patient in the ICU and I was told that she has been transferred to the floor and per nursing report she tolerated her soft GI diet. And she has been passing gas. Undergone swallow study today and did show 1.? Moderate esophageal dysmotility with tertiary contractions and delayed emptying. No obstructing stricture or mass. 2.? No visualized reflux in the upright position. 3.? No visualized aspiration. ? Review of Systems General: Reports: 10 or more systems reviewed and unremarkable except in HPI and below Medications/Allergies Home Medications Medication Instructions Recorded Confirmed Last Taken Type Toe sleeve #1 ea 02/18/20 01/15/22 Unknown Rx metoprolol tartrate 25 mg tablet 12.5 mg PO BID tab 07/13/20 01/15/22 11/05/20 09:00 History Diabetic shoes #1 ea 10/13/20 01/15/22 Unknown Rx L.acidophilus-bif.longum 15 mg (1 1 cap PO DAILY 11/05/20 01/15/22 Unknown History billion cell)capsule,delayed release (Probiotic Pearls) Liquid Multivitamins See Rx Instructions .ROUTE .COMPLEX 11/05/20 01/15/22 Unknown History milk thistle 1 cap PO PRN 11/05/20 01/15/22 Unknown History amlodipine 5 mg tablet 5 mg PO DAILY #90 tab 03/02/21 01/15/22 Unknown Rx furosemide 20 mg tablet (Lasix) 20 mg PO DAILY #90 tab 04/14/21 01/15/22 Unknown Rx blood sugar diagnostic (OneTouch #100 ea 05/21/21 01/15/22 Unknown Rx Ultra Test) losartan 100 mg tablet 50 mg PO DAILY 30 Days #30 tab 08/06/21 01/15/22 Unknown Rx nitroglycerin 0.4 mg sublingual 0.4 mg SUBLINGUAL Q5M PRN #50 tab 08/11/21 01/15/22 Unknown Rx tablet (Nitrostat) clopidogrel 75 mg tablet 75 mg PO QAM #90 tab 09/13/21 01/15/22 Unknown Rx meclizine 25 mg tablet See Rx Instructions .ROUTE 09/17/21 01/15/22 Unknown Rx .COMPLEX #90 tab ezetimibe 10 mg tablet (Zetia) 10 mg PO DAILY #90 tab 11/23/21 01/15/22 Unknown Rx albuterol sulfate 90 mcg/actuation 2 puff INHALATION Q6H PRN #8.5 g 11/24/21 01/15/22 Unknown Rx aerosol inhaler (ProAir HFA) levothyroxine 88 mcg tablet 88 mcg PO DAILY #90 tab 12/02/21 01/15/22 Unknown Rx Diabetic shoes with 3 inserts #1 ea 12/14/21 01/15/22 Unknown Rx hydrocodone 5 mg-acetaminophen 325 1 tab PO Q6H PRN #10 tab 01/11/22 01/15/22 Unknown Rx mg tablet ondansetron 8 mg disintegrating 8 mg PO Q8H #20 tab 01/14/22 01/15/22 Unknown Rx tablet alprazolam 0.25 mg tablet 0.25 mg PO DAILY PRN 01/15/22 01/15/22 Unknown History atorvastatin 40 mg tablet 40 mg PO DAILY 30 Days #30 tab 01/18/22 Unknown Rx levofloxacin 500 mg tablet 500 mg PO Q24H 10 Days #10 tab 01/18/22 Unknown Rx metronidazole 500 mg tablet 500 mg PO BID 10 Days #20 tab 01/18/22 Unknown Rx sodium bicarbonate 650 mg tablet 650 mg PO BID 30 Days #60 tab 01/18/22 Unknown Rx Allergies Allergy/AdvReac Type Severity Reaction Status Date / Time ciprofloxacin [From Cipro] Allergy Severe weakness, Verified 01/19/22 06:49 dizziness. hydromorphone Allergy ADR-Nausea Verified 01/19/22 06:49 morphine Allergy unknown Verified 01/19/22 06:49 omeprazole Allergy arthritis Verified 01/19/22 06:49 pain penicillin G Allergy tongue Verified 01/19/22 06:49 swelling tramadol Allergy unknown Verified 01/19/22 06:49 Current Medications Generic Name Dose Route Start Last Admin Trade Name Freq PRN Reason Stop Dose Admin Hydrocodone Bitart/Acetaminophen 1 tab 01/15/22 19:41 01/15/22 20:12 Hydrocodone-Acetaminophen 5-325 Mg Tablet PO 1 tab Q6H PRN Administration pain Atorvastatin Calcium 40 mg 01/15/22 09:00 01/15/22 09:39 Atorvastatin 40 Mg Tablet PO 40 mg DAILY JESSICA Administration Clopidogrel Bisulfate 75 mg 01/15/22 06:00 01/17/22 05:34 Clopidogrel 75 Mg Tablet PO 75 mg QAM JESSICA Administration Heparin Sodium (Porcine) 5,000 unit 01/15/22 04:00 01/17/22 04:28 Heparin 5,000 Unit/Ml Inj 1 Ml SUBCUT 5,000 unit Q8H JESSICA Administration Hydromorphone HCl 0.2 mg 01/15/22 21:17 01/16/22 05:54 Hydromorphone 1 Mg/Ml Inj 1 Ml IVP 0.2 mg Q2H PRN Administration SEVERE PAIN Levofloxacin/Dextrose 750 mg in 150 mls @ 100 mls/hr 01/15/22 04:00 01/17/22 05:57 Levaquin-D5w IV Infused Q24H JESSICA Infusion Protocol Metronidazole 500 mg in 100 mls @ 100 mls/hr 01/15/22 04:00 01/17/22 05:27 Flagyl Iv IV Infused Q8H JESSICA Infusion Protocol Lanolin 1 applic 01/16/22 22:23 01/16/22 22:52 Lanolin Oint 7 Gm TOPICAL 1 applic PRN PRN Administration DRYNESS Levothyroxine Sodium 88 mcg 01/15/22 09:00 01/17/22 09:28 Levothyroxine 88 Mcg Tablet PO 88 mcg DAILY JESSICA Administration Ondansetron HCl 4 mg 01/15/22 03:59 01/15/22 08:20 Ondansetron 2 Mg/Ml Sdv 2 Ml IVP 4 mg Q8H PRN Administration vomiting, or N/V if npo Ondansetron HCl 4 mg 01/15/22 10:26 01/15/22 18:41 Ondansetron 2 Mg/Ml Sdv 2 Ml IVP 4 mg Q4H PRN Administration NAUSEA AND VOMITING Pantoprazole Sodium 40 mg 01/15/22 10:30 01/17/22 09:28 Pantoprazole 40 Mg Sdv IVP 40 mg DAILY JESSICA Administration Promethazine HCl 12.5 mg 01/15/22 10:26 01/16/22 03:46 Promethazine 25 Mg/Ml Sdv 1 Ml IM 12.5 mg Q6H PRN Administration NAUSEA Sodium Bicarbonate 650 mg 01/15/22 15:00 01/17/22 09:14 Sodium Bicarbonate 650 Mg Tablet PO Not Given TID JESSICA PFSH Acute PFSH: Medical History Acquired hypothyroidism Arrhythmia ASHD (arteriosclerotic heart disease) Asymptomatic superficial varicosities of lower extremity, bilateral Benign essential hypertension Bilateral edema of lower extremity dependent mostly Bilateral hip pain Chronic obstructive pulmonary emphysema Diabetes Diastolic dysfunction Dilated aortic root Diverticula of colon Hammertoe, bilateral Intermittent palpitations Mixed hyperlipidemia 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 Poor compliance PVD (peripheral vascular disease) Type 2 diabetes mellitus, without long-term current use of insulin Vaginal prolapse Surgical History H/O: hysterectomy History of appendectomy History of cholecystectomy History of hip surgery Right RAZIA History of tonsillectomy S/P coronary artery stent placement S/P selective transsphenoidal pituitary adenomectomy Family History Father CAD (coronary artery disease) Mother Cancer Chronic kidney disease (CKD) Sister Diabetes Other Hypertension Denies family history of Clotting disorder Dementia Suicide Anesthesia complication Bleeding disorder Lung disease Stroke Social History Smoking and tobacco status: never smoked Alcohol intake: never Household members: none Housing: Apartment Marital status: / Number of children: 5 Number of grandchildren: 8 Highest education level completed: 10th Grade service: No Current occupational status: retired Female Reproductive History: Date of last menstrual period: 10/01/20 Vitals/I&O/Wt Last Vital Signs Temp 98.1 F 01/17/22 07:41 Pulse 59 L 01/17/22 07:41 Resp 9 L 01/17/22 07:41 BP 104/53 01/17/22 07:41 Pulse Ox 90 01/17/22 07:41 01/16/22 01/17/22 01/17/22 22:59 06:59 14:59 Intake Total 346.5 / 596.5 350 / 946.5 Output Total 1000 / 1000 1300 / 2300 Balance -653.5 / -403.5 -950 / -1353.5 Physical Exam Const: COMMON NORMALS: no acute distress and patient oriented x3 GENERAL APPEARANCE: cooperative ORIENTATION/CONSCIOUSNESS: Yes awake, Yes oriented to person, Yes oriented to place and Yes oriented to time HENMT: COMMON NORMALS: normocephalic HEAD & SCALP: normocephalic Eye: COMMON NORMALS: Equal, round and reactive pupils present and no scleral icterus PUPIL: Yes Equal, round and reactive pupils present Lymph: LYMPHATIC: no lymphadenopathy noted Chest: COMMONS NORMALS: normal inspection of the chest Resp: COMMON NORMALS: normal respiratory effort and clear to auscultation bilaterally AUSCULTATION: clear to auscultation bilaterally Cardio: COMMON NORMALS: S1 normal heart sound present and S2 normal heart sound present; negative for No murmurs present (Cardio) HEART SOUNDS: S1 normal heart sound present and S2 normal heart sound present GI: COMMON NORMALS: Soft to palpation; negative for No hepatosplenomegaly present INSPECTION: Yes normal to inspection PALPATION: Yes Soft to palpation, No Firmness to palpation present (GI), No Tenderness to palpation present (GI), No Guarding due to palpation present (GI), No Rigid due to palpation and No No hepatosplenomegaly present Neuro: COMMON NORMALS: patient oriented x3 SENSORIUM/ORIENTATION: Yes oriented to person, Yes oriented to place and Yes oriented to time Psych: COMMON NORMALS: mental status grossly normal Skin: COMMON NORMALS: no rashes or lesions noted GENERAL SKIN EXAM: no rashes or lesions noted Urinary Catheter Management: Cunha: Cath Placed During This Visit: yes Reason for Continuing Indwelling Catheter: Accurate Measurement of Urinary Output in Critically Ill Patients Urinary Catheter Date of Insertion: 01/15/22 Urinary Catheter Time of Insertion: 16:20 Data : 01/18/22 04:35 01/19/22 04:35 A&P Assessment and plan (1) Diverticulitis: Plan of care; Review the pathology with the patient Avoid constipation Avoid seeds nuts and popcorn High Fiber diet; As Fiber softens the stool and helps prevent constipation. It also can help decrease pressure in the colon and help prevent flare-ups of diverticulitis. High-fiber foods include: ? Beans and legumes ? Bran, whole wheat bread and whole grain cereals such as oatmeal ? Brown and wild rice ? Fruits such as apples, bananas and pears ? Vegetables such as broccoli, carrots, corn and squash ? Whole wheat pasta The target is to eat 25 to 30 grams of fiber daily. Drink at least 8 cups of fluid daily. Fluid will help soften your stool.Exercise also promotes bowel movement and helps prevent constipation. Weight management Assurance and education All questions have been answered Status: Inactive (2) Bloating: I do not see an indication for surgical intervention at the moment. Patient seems to be tolerating p.o. intake. Aspiration risk Advance diet as tolerated Follow-up as an outpatient for colonoscopy in 6 to 8 weeks versus a barium enema to rule out potential underlying neoplasia of the colon Assurance and education All questions have been answered and all concerns have been addressed to patient's satisfaction. 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
[2022-01-17 16:06] LABS: Osmolality Serum 236 mOsm/kg (278-305)
[2022-01-17 16:06] LABS: Osmolality Urine 440 mOsm/kg (50-1200)
[2022-01-17 17:41] LABS: Glucose Point of Care 111 mg/dL (70-110)
[2022-01-17] MEDS: HYDROcodone-acetaminophen 5-325 mg Tablet 1 TAB PO (18:10)
[2022-01-17 19:53] LABS: Anion Gap 19.8 (5-19); Blood Urea Nitrogen 8 mg/dL (8-23); Calcium 9.4 mg/dL (8.5-10.5); Carbon Dioxide 16 mmol/L (22-29); Chloride 91 mmol/L (98-107); Glucose 160 mg/dL (65-115); Osmolality Calculated 258 mOsm/kg (285-295); Potassium 3.8 mmol/L (3.5-5.1); Sodium 123 mmol/L (136-145)
[2022-01-17] MEDS: sodium bicarbonate 650 mg Tablet PO (20:41)
[2022-01-18] VITALS (8 sets, daily range): BP systolic 124–154; BP diastolic 62–75; PULSE 56–80; RESP 13–18; TEMP 36.6–36.9; O2SAT 96–98
[2022-01-18 04:54] LABS: Basophils % 0.7 %; Eosinophils # 0.1 10^3/uL (0.0-0.8); Eosinophils % 1.8 %; Hematocrit 35.8 % (37.0-47.0); Hemoglobin 12.3 g/dL (11.5-15.3); Lymphocytes # 1.3 10^3/uL (0.8-4.8); Lymphocytes % 46.9 %; Mean Corpuscular HGB Conc 34.4 g/dL (30.0-36.0); Mean Corpuscular Volume 84.4 fl (81-99); Monocytes # 0.3 10^3/uL (0.2-0.9); Monocytes % 12.4 %; Neutrophils # 1.04 10^3/uL (1.8-7.7); Neutrophils % 37.8 %; Nucleated Red Blood Cells % 0 %; Platelet Count 257 10^3/cmm (130-400); Red Blood Count 4.24 10^6/uL (4.1-5.3); Red Cell Distribution Width 12.2 % (12.1-15.1); White Blood Count 2.8 10^3/uL (4.0-10.0)
[2022-01-18] MEDS: heparin 5,000 unit/mL INJ 1 mL 5000 UNIT SUBCUT ×3 (05:07→21:37)
[2022-01-18] MEDS: levofloxacin-dextrose 5 % 750 MG/150 ML PREMIX 100 MG IV (05:07)
[2022-01-18] MEDS: metroNIDAZOLE IV 500 MG/100 ML PREMIX 100 MG IV ×2 (05:07→12:06)
[2022-01-18] MEDS: clopidogrel 75 mg Tablet PO (05:08)
[2022-01-18 05:16] LABS: Blood Urea Nitrogen 8 mg/dL (8-23); Calcium 9.3 mg/dL (8.5-10.5); Carbon Dioxide 18 mmol/L (22-29); Chloride 92 mmol/L (98-107); Glucose 110 mg/dL (65-115); Osmolality Calculated 257 mOsm/kg (285-295); Sodium 124 mmol/L (136-145)
[2022-01-18 05:18] LABS: Anion Gap 17.9 (5-19); Potassium 3.9 mmol/L (3.5-5.1)
[2022-01-18] MEDS: HYDROcodone-acetaminophen 5-325 mg Tablet 1 TAB PO (08:25)
[2022-01-18] MEDS: levothyroxine 88 mcg Tablet PO (08:25)
[2022-01-18] MEDS: ondansetron 2 mg/ML SDV 2 mL 4 MG IVP (08:26)
[2022-01-18] MEDS: sodium bicarbonate 650 mg Tablet PO ×3 (08:26→21:35)
[2022-01-18] MEDS: pantoprazole 40 mg SDV IVP (08:26)
--- NOTE | 2022-01-18 12:28 | P.DS_ITS ---
Discharge Providers Date of Admission: 01/15/22 02:47 Date of Discharge: January 18, 2022 Attending Provider at Admission: Jerome Roca Attending Provider at Discharge: Lillie Hanna MD Primary Care Provider: Lashawn Zaldivar DO Diagnoses at Discharge Discharge Diagnosis (1) Diverticulitis: Status: Acute (2) Bloating: Status: Acute Reason for Visit Reason for Visit: ABD PAIN Brief History: 86-year-old lady evaluated in the ER on 01/11 at the time presenting with lower abdominal pain, with finding of diverticulitis confirmed by imaging study, received a dose of cefuroxime and Flagyl, was discharged home with a course of Bactrim and Flagyl.? Took several doses of the antibiotics, but was again feeling unwell, with abdominal pain, nausea, not able to keep down food or liquids or the medication, missed a number of doses.? Return to the ER today due to continued to have left lower abdominal pain, radiating to the left hip as well.? Here in ER reimaged with CT abdomen pelvis with similar findings with diverticulitis within the pelvis.? She is noted to have, however, severe hyponatremia with sodium worse from 124 last visit to currently 114. Hospital Course Hospital Course Patient was initially admitted for hyponatremia and management of diverticulitis. She was continued on levofloxacin and Flagyl in the hospital. She also complained of dysphagia due to which barium swallow was ordered. She did have esophageal dysmotility. She was also evaluated by general surgery for her diverticulitis during stay. Patient does need barium study along with colon oscopy after discharge. General surgery will follow. We will give her an outpatient appointment for that. Patient to complete 14 days of antibiotics total. Hyponatremia was treated with 300 cc of hypertonic saline at first. She was very difficult to correct. Sodium rising appropriately. She was also placed on sodium tablet 1 g twice daily which we will continue for now. She will get BMP within 1 week. Sodium on discharge was 124 which is consistent with her sodium previously. 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 She was followed by nephrology during hospital stay. Patient was able to tolerate diet, have bowel movement and abdominal pain is improved today. Patient will be going to halfway for rehab at [facility]. She will receive [employer] booster shot before leaving the hospital. Nursing is setting that up. All questions answered at bedside. Patient son was updated was present at bedside. Patient will be discharged to [facility] in stable condition. Patient has been given specific instructions which are listed in the discharge order Physical Exam Narrative: General: Alert oriented x3, patient seen sitting up HEENT: Normocephalic, atraumatic, EOMI, breathing normally Cardio: Regular rate rhythm, normal S1-S2, Respiratory: Good bilateral air entry, no wheezes no rhonchi appreciated GI: Abdomen soft, non tender to palpation Behavior: Appropriate and cooperative Extremities: Trace pitting edema upto knees b/l LE but improved than yesterday no cyanosis Urinary Catheter Management: Cunha: Cath Placed During This Visit: yes, but has since been removed by the nurse Reason for Continuing Indwelling Catheter: Decision to DC Catheter Urinary Catheter Date of Insertion: 01/15/22 Urinary Catheter Time of Insertion: 16:20 Date Urinary Catheter Removed: 01/17/22 Time Urinary Catheter Discontinued: 15:47 Discharge Data Studies Completed and Pending Completed Studies During Hospitalization Category Date Time Status CT abdomen pelvis wo con [id number] Urgent Cat Scan 01/15/22 00:[address] head wo con* [id number] Stat Cat Scan 01/16/22 14:08 Completed FL barium swallow [id number] Routine Exams 01/17/22 08:19 Completed XR KUB portable [id number] Routine Exams 01/17/22 08:22 Completed XR chest 1V portable [id number] Urgent Exams 01/17/22 07:53 Completed Pending at discharge Category Date Time Status Basic Metabolic Panel AM LABS Lab 01/19/22 04:00 Ordered Radiology Impressions Abdomen/Pelvis CT 01/15/22 00:15 IMPRESSION: Stable findings of diverticulitis within the pelvis. Head CT 01/16/22 14:08 IMPRESSION: 1. No evidence of acute intracranial abnormality. No evidence of acute infarction, hemorrhage, or mass. 2. Senescent changes. Chest X-Ray 01/17/22 07:53 IMPRESSION: Mild atherosclerosis aorta. No pneumonia. Barium Swallow X-Ray 01/17/22 08:19 IMPRESSION: Limited examination due to patient's difficulty standing. 1. Moderate esophageal dysmotility with tertiary contractions and delayed emptying. No obstructing stricture or mass. 2. No visualized reflux in the upright position. 3. No visualized aspiration. KUB X-Ray 01/17/22 08:22 IMPRESSION: No acute findings. Laboratory Results WBC 2.8 10^3/uL (4.0-10.0) L 01/18/22 04:35 RBC 4.24 10^6/uL (4.1-5.3) 01/18/22 04:35 Hgb 12.3 g/dL (11.5-15.3) 01/18/22 04:35 Hct 35.8 % (37.0-47.0) L 01/18/22 04:35 MCV 84.4 fl (81-99) 01/18/22 04:35 MCH 29.0 pg (28.0-34.0) 01/18/22 04:35 MCHC 34.4 g/dL (30.0-36.0) 01/18/22 04:35 RDW 12.2 % (12.1-15.1) 01/18/22 04:35 Plt Count 257 10^3/cmm (130-400) 01/18/22 04:35 MPV 9.0 fL (7.4-10.4) 01/18/22 04:35 Neut % (Auto) 37.8 % 01/18/22 04:35 Lymph % (Auto) 46.9 % 01/18/22 04:35 Vance % (Auto) 12.4 % 01/18/22 04:35 Eos % (Auto) 1.8 % 01/18/22 04:35 Baso % (Auto) 0.7 % 01/18/22 04:35 Neut # (Auto) 1.04 10^3/uL (1.8-7.7) L 01/18/22 04:35 Lymph # (Auto) 1.3 10^3/uL (0.8-4.8) 01/18/22 04:35 Vance # (Auto) 0.3 10^3/uL (0.2-0.9) 01/18/22 04:35 Eos # (Auto) 0.1 10^3/uL (0.0-0.8) 01/18/22 04:35 Baso # (Auto) 0.0 10^3/uL (0.0-0.1) 01/18/22 04:35 Nucleated RBC % (auto) 0 % 01/18/22 04:35 Nucleated RBCs # 0.0 /100WBC 01/18/22 04:35 Sodium 124 mmol/L (136-145) L 01/18/22 04:35 Potassium 3.9 mmol/L (3.5-5.1) 01/18/22 04:35 Chloride 92 mmol/L (98-107) L 01/18/22 04:35 Carbon Dioxide 18 mmol/L (22-29) L 01/18/22 04:35 Anion Gap 17.9 (5-19) 01/18/22 04:35 BUN 8 mg/dL (8-23) 01/18/22 04:35 Creatinine 0.4 mg/dL (0.5-0.9) L 01/18/22 04:35 GFR Calculation Not Reportable 01/18/22 04:35 Glucose 110 mg/dL (65-115) 01/18/22 04:35 POC Glucose 111 mg/dL (70-110) H 01/17/22 17:31 Serum Osmolality 236 mOsm/kg (278-305) L 01/15/22 12:13 Calculated Osmolality 257 mOsm/kg (285-295) L 01/18/22 04:35 Lactic Acid 1.2 mmol/L (0.5-2.2) 01/15/22 01:15 Calcium 9.3 mg/dL (8.5-10.5) 01/18/22 04:35 Total Bilirubin 0.3 mg/dL (0.15-1.2) 01/14/22 11:50 AST 24 U/L (0-32) 01/14/22 11:50 ALT 11 U/L (0-33) 01/14/22 11:50 Alkaline Phosphatase 93 IU/L (35-105) 01/14/22 11:50 Total Protein 6.7 g/dL (6.6-8.7) 01/14/22 11:50 Albumin 4.3 g/dL (3.5-5.2) 01/14/22 11:50 Globulin 2.4 g/dL (1.3-4.6) 01/14/22 11:50 Lipase 49 U/L (13-60) 01/14/22 11:50 TSH 0.41 uIU/mL (0.27-4.20) 01/14/22 11:50 Urine Color Yellow (Yellow) 01/15/22 02:02 Urine Appearance Clear (CLEAR) 01/15/22 02:02 Urine pH 6.5 (5-7) 01/15/22 02:02 Ur Specific [place] 1.010 (1.005-1.030) 01/15/22 02:02 Urine Protein Neg (Negative) 01/15/22 02:02 Urine Glucose (UA) Norm (Normal) 01/15/22 02:02 Urine Ketones 2+ (Negative) H 01/15/22 02:02 Urine Blood Neg (Negative) 01/15/22 02:02 Urine Nitrate Negative (Negative) 01/15/22 02:02 Urine Bilirubin Neg (Negative) 01/15/22 02:02 Urine Urobilinogen Norm mg/dL (Negative) 01/15/22 02:02 Ur Leukocyte Esterase Negative (Negative) 01/15/22 02:02 Urine Osmolality 440 mOsm/kg (50-1200) 01/15/22 16:25 Ur Random Sodium 117 mmol/L 01/15/22 16:25 Vitals Last Vital Signs Temp 98 F 01/18/22 08:00 Pulse 80 01/18/22 09:35 Resp 16 01/18/22 09:35 BP 136/70 01/18/22 08:00 Pulse Ox 97 01/18/22 09:35 Discharge Plan Discharge Patient Disposition: Xfer SNF Condition: Stable Prescriptions: New sodium bicarbonate 650 mg Tablet 650 mg PO BID 30 Days Qty: 60 0RF atorvastatin 40 mg Tablet 40 mg PO DAILY 30 Days Qty: 30 0RF levofloxacin 500 mg tablet 500 mg PO Q24H 10 Days Qty: 10 0RF Continued (DME) Toe sleeve See Rx Instructions .Route .MEDSUPPLY Qty: 1 0RF Rx Instructions: As directed (DME) Diabetic shoes See Rx Instructions .ROUTE .MEDSUPPLY Qty: 1 0RF Rx Instructions: With 3 pairs of inserts, Custom made by [employer] levothyroxine 88 mcg tablet 88 mcg PO DAILY Qty: 90 1RF (DME) Diabetic shoes with 3 inserts See Rx Instructions .Route .MEDSUPPLY Qty: 1 0RF Rx Instructions: As directed [facility] [employer] [facility] amlodipine 5 mg tablet 5 mg PO DAILY Qty: 90 3RF furosemide [Lasix] 20 mg tablet 20 mg PO DAILY Qty: 90 3RF (DME) OneTouch Ultra Test Strip See Rx Instructions .Route Qty: 100 3RF Rx Instructions: use in onetouch meter daily 90 day supply losartan 100 mg tablet 50 mg PO DAILY 30 Days Qty: 30 5RF nitroglycerin [Nitrostat] 0.4 mg tablet, sublingual 0.4 mg sublingual Q5M PRN (Reason: chest pain) Qty: 50 5RF Rx Instructions: do not exceed 3 doses per episode clopidogrel 75 mg tablet 75 mg PO QAM Qty: 90 3RF meclizine 25 mg tablet See Rx Instructions .ROUTE .COMPLEX Qty: 90 0RF Dose Instruction: TAKE ONE TABLET EVERY 6 HOURS NEEDED FOR VERTIGO Rx Instructions: TAKE ONE TABLET EVERY 6 HOURS NEEDED FOR VERTIGO ezetimibe [Zetia] 10 mg tablet 10 mg PO DAILY Qty: 90 3RF albuterol sulfate [ProAir HFA] 90 mcg/actuation HFA aerosol inhaler 2 puff inhalation Q6H PRN (Reason: shortness of breath or wheezing) Qty: 8.5 0RF ondansetron 8 mg tablet,disintegrating 8 mg PO Q8H Qty: 20 0RF L.acidophilus-Bifido.longum [Probiotic Pearls] 15 mg (1 billion cell) Capsule,Delayed Release(Dr/Ec) 1 cap PO DAILY 0RF milk thistle 1 cap PO PRN 0RF Liquid Multivitamins See Rx Instructions .ROUTE .COMPLEX 0RF Rx Instructions: 2 tablespoons po every other day alprazolam 0.25 mg tablet 0.25 mg PO DAILY PRN (Reason: Anxiety) 0RF metronidazole 500 mg tablet 500 mg PO BID 10 Days Qty: 20 0RF hydrocodone-acetaminophen 5-325 mg tablet 1 tab PO Q6H PRN (Reason: pain) Qty: 10 0RF Held metoprolol tartrate 25 mg tablet 12.5 mg PO BID 0RF Hold Instructions: see pcp before resuming Discontinued sulfamethoxazole-trimethoprim [Bactrim DS] 800-160 mg tablet 1 tab PO BID 10 Days Qty: 20 0RF Discharge Orders: Discharge Order (Routine); Ordered 01/18/22 Ordered By: Lillie Hanna Other Ambulatory Orders: Basic Metabolic Panel (Routine) Timeframe: 1 Week Facility: [facility] - Location: Lab - Main Lab Ordered By: Lillie Hanna Referrals: [facility] [Outside] Kevin Jean MD [Physician] - 2 weeks Lashawn Zaldivar DO [Primary Care Provider] - 4-7 days Discharge Activity: Increase activity as tolerated and As per PT/OT instructions Activity Restrictions/Additional Instructions: Avoid constipation Avoid seeds nuts and popcorn High Fiber diet; As Fiber softens the stool and helps prevent constipation. It also can help decrease pressure in the colon and help prevent flare-ups of diverticulitis. High-fiber foods include: ? Beans and legumes ? Bran, whole wheat bread and whole grain cereals such as oatmeal ? Brown and wild rice ? Fruits such as apples, bananas and pears ? Vegetables such as broccoli, carrots, corn and squash ? Whole wheat pasta ?The target is to eat 25 to 30 grams of fiber daily. Drink at least 8 cups of fluid daily. Fluid will help soften your stool.Exercise also promotes bowel movement and helps prevent constipation. Follow-up as an outpatient for colonoscopy in 6 to 8 weeks versus a barium enema to rule out potential underlying neoplasia of the colon Discharge Attestations Time Spent in Discharge Care*: less than 30 min Quality Metrics Clinical Quality Measures [ No reported AMI, CVA or VTE this stay] Coding Level of Care Code Acute Chg FW DC note Diagnoses Diverticulitis K57.92 Bloating R14.0
--- NOTE | 2022-01-18 12:59 | PC.SOCIAL ---
Pg 2 IMM Explained to pt & family Pg 2 IMM. Provided pt a copy. Initialed, dated, & timed a copy & placed in chart.
[2022-01-18 14:29] LABS: SARS Covid-2 Antigen Positive (Negative)
[2022-01-18 15:42] LABS: SARS Covid-2 Antigen Positive (Negative)
[2022-01-18] MEDS: atorvastatin 40 mg Tablet PO (21:35)
[2022-01-19] VITALS (7 sets, daily range): BP systolic 107–156; BP diastolic 65–81; PULSE 62–74; RESP 14–16; TEMP 36.4–37.1; O2SAT 94–97
[2022-01-19] MEDS: metroNIDAZOLE IV 500 MG/100 ML PREMIX 100 MG IV ×2 (01:32→08:50)
[2022-01-19] MEDS: heparin 5,000 unit/mL INJ 1 mL 5000 UNIT SUBCUT ×2 (04:49→12:09)
[2022-01-19] MEDS: levofloxacin-dextrose 5 % 750 MG/150 ML PREMIX 100 MG IV (04:49)
[2022-01-19 05:11] LABS: Anion Gap 13.7 (5-19); Blood Urea Nitrogen 6 mg/dL (8-23); Carbon Dioxide 23 mmol/L (22-29); Chloride 95 mmol/L (98-107); Glucose 107 mg/dL (65-115); Osmolality Calculated 264 mOsm/kg (285-295); Potassium 3.7 mmol/L (3.5-5.1); Sodium 128 mmol/L (136-145)
[2022-01-19] MEDS: clopidogrel 75 mg Tablet PO (06:32)
[2022-01-19] MEDS: sodium bicarbonate 650 mg Tablet PO (08:50)
[2022-01-19] MEDS: pantoprazole 40 mg SDV IVP (08:50)
[2022-01-19] MEDS: levothyroxine 88 mcg Tablet PO (08:50)
--- NOTE | 2022-01-19 14:42 | P.DS_ITS ---
Discharge Providers Date of Admission: 01/15/22 02:47 Date of Discharge: January 19, 2022 Attending Provider at Admission: Jerome Roca Attending Provider at Discharge: Malka Peck MD Primary Care Provider: Lashawn Zaldivar DO Diagnoses at Discharge Discharge Diagnosis (1) Diverticulitis: Status: Inactive (2) Hyponatremia: Status: Acute (3) Constipation: Status: Acute (4) COVID-19: Status: Acute (5) Diabetes: Status: Chronic Qualifiers: Diabetes mellitus type: type 2 Diabetes mellitus tank terminal gauger insulin use: without tank terminal gauger use Diabetes mellitus complication status: without complication Qualified Code(s): E11.9 - Type 2 diabetes mellitus without complications (6) PVD (peripheral vascular disease): Status: Chronic (7) Benign essential hypertension: Status: Chronic (8) Chronic obstructive pulmonary emphysema: Status: Chronic (9) Esophageal dysmotility: Status: Acute Reason for Visit Reason for Visit: ABD PAIN Hospital Course Hospital Course Patient was initially admitted for hyponatremia and management of diverticulitis. She was continued on levofloxacin and Flagyl in the hospital. She also complained of dysphagia due to which barium swallow was ordered. She did have esophageal dysmotility. She was also evaluated by general surgery for her diverticulitis during stay. Patient does need barium study along with colonoscopy after discharge. General surgery will follow outpatient appointment for that. Patient to complete 14 days of antibiotics total. Hyponatremia was treated with 300 cc of hypertonic saline at first. She was very difficult to correct. Sodium rising appropriately. She was also placed on sodium tablet 1 g twice daily which we will continue for now. She will get BMP within 1 week. Sodium on discharge was 128 which is consistent with her sodium previously. 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 She was followed by nephrology during hospital stay. Patient was able to tolerate diet, have bowel movement and abdominal pain is improved. Originally plans for patient were to go to skilled facility where she had been accepted. Unfortunately COVID screening came back positive on 2 rapid antigen tests. She had received Pfizer prior to the COVID screening. As she was not able to go to skilled facility arrangements were made for home health care. Patient's son will also take off work to stay. We will provide [facility] paperwork to facilitate this. Patient was not feeling as good but was not requiring oxygen. As this was an incidental identification of COVID in a patient with risk factors for progression to severe disease primarily age and comorbid conditions as listed, options for treatment including paxlovid were discussed with her and her son. Medications were reviewed for interactions. Benzodiazepine and statin therapy will need to be held as described in medication list. Ms. Vu and her son are aware that this is an EUA drug for COVID management that has shown decrease in hospitalizations and in studies today though specific data on current variants is still forthcoming. In addition to paxlovid, formation on quarantining, care for patient with COVID and general COVID information were provided. On the day of discharge patient was awake and alert, looks like she did not feel but had a big smile in response to a comment made in the room. Lungs are clear. Regular. Abdomen is soft mildly tender with positive bowel sounds, no rebound or guarding. Physical Exam Urinary Catheter Management: C[place]ha: Cath Placed During This Visit: yes, but has since been removed by the nurse Reason for Continuing Indwelling Catheter: Decision to DC Catheter Urinary Catheter Date of Insertion: 01/15/22 Urinary Catheter Time of Insertion: 16:20 Date Urinary Catheter Removed: 01/17/22 Time Urinary Catheter Discontinued: 15:47 Discharge Data Studies Completed and Pending Completed Studies During Hospitalization Category Date Time Status CT abdomen pelvis wo con [id number] Urgent Cat Scan 01/15/22 00:[address] head wo con* [id number] Stat Cat Scan 01/16/22 14:08 Completed [place] barium swallow [id number] Routine Exams 01/17/22 08:19 Completed XR KUB portable [id number] Routine Exams 01/17/22 08:22 Completed XR chest 1V portable [id number] Urgent Exams 01/17/22 07:53 Completed Radiology Impressions Abdomen/Pelvis CT 01/15/22 00:15 IMPRESSION: Stable findings of diverticulitis within the pelvis. Head CT 01/16/22 14:08 IMPRESSION: 1. No evidence of acute intracranial abnormality. No evidence of acute infarction, hemorrhage, or mass. 2. Senescent changes. Chest X-Ray 01/17/22 07:53 IMPRESSION: Mild atherosclerosis aorta. No pneumonia. Barium Swallow X-Ray 01/17/22 08:19 IMPRESSION: Limited examination due to patient's difficulty standing. 1. Moderate esophageal dysmotility with tertiary contractions and delayed emptying. No obstructing stricture or mass. 2. No visualized reflux in the upright position. 3. No visualized aspiration. KUB X-Ray 01/17/22 08:22 IMPRESSION: No acute findings. Laboratory Results WBC 2.8 10^3/uL (4.0-10.0) L 01/18/22 04:35 RBC 4.24 10^6/uL (4.1-5.3) 01/18/22 04:35 Hgb 12.3 g/dL (11.5-15.3) 01/18/22 04:35 Hct 35.8 % (37.0-47.0) L 01/18/22 04:35 MCV 84.4 fl (81-99) 01/18/22 04:35 MCH 29.0 pg (28.0-34.0) 01/18/22 04:35 MCHC 34.4 g/dL (30.0-36.0) 01/18/22 04:35 RDW 12.2 % (12.1-15.1) 01/18/22 04:35 Plt Count 257 10^3/cmm (130-400) 01/18/22 04:35 MPV 9.0 fL (7.4-10.4) 01/18/22 04:35 Neut % (Auto) 37.8 % 01/18/22 04:35 Lymph % (Auto) 46.9 % 01/18/22 04:35 [place] % (Auto) 12.4 % 01/18/22 04:35 Eos % (Auto) 1.8 % 01/18/22 04:35 Baso % (Auto) 0.7 % 01/18/22 04:35 Neut # (Auto) 1.04 10^3/uL (1.8-7.7) L 01/18/22 04:35 Lymph # (Auto) 1.3 10^3/uL (0.8-4.8) 01/18/22 04:35 [place] # (Auto) 0.3 10^3/uL (0.2-0.9) 01/18/22 04:35 Eos # (Auto) 0.1 10^3/uL (0.0-0.8) 01/18/22 04:35 Baso # (Auto) 0.0 10^3/uL (0.0-0.1) 01/18/22 04:35 Nucleated RBC % (auto) 0 % 01/18/22 04:35 Nucleated RBCs # 0.0 /100WBC 01/18/22 04:35 Sodium 128 mmol/L (136-145) L 01/19/22 04:35 Potassium 3.7 mmol/L (3.5-5.1) 01/19/22 04:35 Chloride 95 mmol/L (98-107) L 01/19/22 04:35 Carbon Dioxide 23 mmol/L (22-29) 01/19/22 04:35 Anion Gap 13.7 (5-19) 01/19/22 04:35 BUN 6 mg/dL (8-23) L 01/19/22 04:35 Creatinine 0.5 mg/dL (0.5-0.9) 01/19/22 04:35 GFR Calculation Not Reportable 01/19/22 04:35 Glucose 107 mg/dL (65-115) 01/19/22 04:35 POC Glucose 111 mg/dL (70-110) H 01/17/22 17:31 Serum Osmolality 236 mOsm/kg (278-305) L 01/15/22 12:13 Calculated Osmolality 264 mOsm/kg (285-295) L 01/19/22 04:35 Lactic Acid 1.2 mmol/L (0.5-2.2) 01/15/22 01:15 Calcium 10.0 mg/dL (8.5-10.5) 01/19/22 04:35 Total Bilirubin 0.3 mg/dL (0.15-1.2) 01/14/22 11:50 AST 24 U/L (0-32) 01/14/22 11:50 ALT 11 U/L (0-33) 01/14/22 11:50 Alkaline Phosphatase 93 IU/L (35-105) 01/14/22 11:50 Total Protein 6.7 g/dL (6.6-8.7) 01/14/22 11:50 Albumin 4.3 g/dL (3.5-5.2) 01/14/22 11:50 Globulin 2.4 g/dL (1.3-4.6) 01/14/22 11:50 Lipase 49 U/L (13-60) 01/14/22 11:50 TSH 0.41 uIU/mL (0.27-4.20) 01/14/22 11:50 Urine Color Yellow (Yellow) 01/15/22 02:02 Urine Appearance Clear (CLEAR) 01/15/22 02:02 Urine pH 6.5 (5-7) 01/15/22 02:02 Ur Specific [place] 1.010 (1.005-1.030) 01/15/22 02:02 Urine Protein Neg (Negative) 01/15/22 02:02 Urine Glucose (UA) Norm (Normal) 01/15/22 02:02 Urine Ketones 2+ (Negative) H 01/15/22 02:02 Urine Blood Neg (Negative) 01/15/22 02:02 Urine Nitrate Negative (Negative) 01/15/22 02:02 Urine Bilirubin Neg (Negative) 01/15/22 02:02 Urine Urobilinogen Norm mg/dL (Negative) 01/15/22 02:02 Ur Leukocyte Esterase Negative (Negative) 01/15/22 02:02 Urine Osmolality 440 mOsm/kg (50-1200) 01/15/22 16:25 Ur Random Sodium 117 mmol/L 01/15/22 16:25 SARS-CoV-2 Ag (Rapid) Positive (Negative) H 01/18/22 15:00 Vitals Last Vital Signs Temp 98.8 F 01/19/22 11:27 Pulse 68 01/19/22 11:27 Resp 14 01/19/22 11:27 BP 130/73 01/19/22 11:27 Pulse Ox 96 01/19/22 11:27 Discharge Plan Discharge Patient Disposition: Home Health Service Condition: Stable Prescriptions: New sodium bicarbonate 650 mg Tablet 650 mg PO BID 30 Days Qty: 60 0RF atorvastatin 40 mg Tablet 40 mg PO DAILY 30 Days Qty: 30 0RF levofloxacin 500 mg tablet 500 mg PO Q24H 10 Days Qty: 10 0RF Paxlovid (EUA) 150 mg x 2- 100 mg tablet See Rx Instructions .ROUTE .COMPLEX Qty: 6 0RF Rx Instructions: take TWO 150 mg tablets of nirmatrelvir with ONE 100 mg tablet of ritonavir twice daily for 5 days Continued (DME) Toe sleeve See Rx Instructions .Route .MEDSUPPLY Qty: 1 0RF Rx Instructions: As directed (DME) Diabetic shoes See Rx Instructions .ROUTE .MEDSUPPLY Qty: 1 0RF Rx Instructions: With 3 pairs of inserts, Custom made by [employer] levothyroxine 88 mcg tablet 88 mcg PO DAILY Qty: 90 1RF (DME) Diabetic shoes with 3 inserts See Rx Instructions .Route .MEDSUPPLY Qty: 1 0RF Rx Instructions: As directed [employer] amlodipine 5 mg tablet 5 mg PO DAILY Qty: 90 3RF furosemide [Lasix] 20 mg tablet 20 mg PO DAILY Qty: 90 3RF (DME) OneTouch Ultra Test Strip See Rx Instructions .Route Qty: 100 3RF Rx Instructions: use in onetouch meter daily 90 day supply losartan 100 mg tablet 50 mg PO DAILY 30 Days Qty: 30 5RF nitroglycerin [Nitrostat] 0.4 mg tablet, sublingual 0.4 mg sublingual Q5M PRN (Reason: chest pain) Qty: 50 5RF Rx Instructions: do not exceed 3 doses per episode clopidogrel 75 mg tablet 75 mg PO QAM Qty: 90 3RF meclizine 25 mg tablet See Rx Instructions .ROUTE .COMPLEX Qty: 90 0RF Dose Instruction: TAKE ONE TABLET EVERY 6 HOURS NEEDED FOR VERTIGO Rx Instructions: TAKE ONE TABLET EVERY 6 HOURS NEEDED FOR VERTIGO ezetimibe [Zetia] 10 mg tablet 10 mg PO DAILY Qty: 90 3RF albuterol sulfate [ProAir HFA] 90 mcg/actuation HFA aerosol inhaler 2 puff inhalation Q6H PRN (Reason: shortness of breath or wheezing) Qty: 8.5 0RF ondansetron 8 mg tablet,disintegrating 8 mg PO Q8H Qty: 20 0RF L.acidophilus-Bifido.longum [Probiotic Pearls] 15 mg (1 billion cell) Capsule,Delayed Release(Dr/Ec) 1 cap PO DAILY 0RF milk thistle 1 cap PO PRN 0RF Liquid Multivitamins See Rx Instructions .ROUTE .COMPLEX 0RF Rx Instructions: 2 tablespoons po every other day metronidazole 500 mg tablet 500 mg PO BID 10 Days Qty: 20 0RF hydrocodone-acetaminophen 5-325 mg tablet 1 tab PO Q6H PRN (Reason: pain) Qty: 10 0RF Held metoprolol tartrate 25 mg tablet 12.5 mg PO BID 0RF Hold Instructions: see pcp before resuming alprazolam 0.25 mg tablet 0.25 mg PO DAILY PRN (Reason: Anxiety) 0RF Hold Instructions: Hold or take 1/2 a dose if necessary while on Paxlovid and for 3 days after Discontinued sulfamethoxazole-trimethoprim [Bactrim DS] 800-160 mg tablet 1 tab PO BID 10 Days Qty: 20 0RF Discharge Orders: Discharge Order (Routine); Ordered 01/19/22 Ordered By: Malka Peck Other Ambulatory Orders: Basic Metabolic Panel (Routine) Timeframe: 1 Week Facility: [facility] - Location: Lab - Main Lab Ordered By: Lillie Hanna Referrals: [facility] [Outside] Kevin Jean MD [Physician] - 02/01/22 9:20 am (Your follow up appointment will be with Dr. Magallanes on 02-01-22 at 9:20 am. If you have any questions or concerns plesae call [phone]. thank you) Lashawn Zaldivar DO [Primary Care Provider] - 01/28/22 1:15 pm Discharge Diet: Advance as tolerated and GI Soft Discharge Activity: Increase activity as tolerated and As per PT/OT instructions Patient Instructions: Metronidazole (By mouth), Levofloxacin (By mouth), Dawood matrelvir/Ritonavir (By mouth) (Paxlovid), Diverticulitis (DC), COVID-19 (Coronavirus Disease 2019) (DC), Safely Care for Someone Who Has COVID-19 (GEN), How to Recover from COVID-19 at Home (ED), Opioid Safety Activity Restrictions/Additional Instructions: FOR COVID (diagnoed via screening test x 2 in hospital) You tested positive for COVID during the hospital stay x2 rapid specimens. Given your age you are at high risk for progression to severe disease. While current non-specific symptoms are likely related to your GI issues and being in the hospital, they could also be related to viral infection. Cannot know ahead of time how you will do with COVID infection. We discussed the possibility of treatment with Paxlovid, a combination medication found to be effective at decreasing risk of or hospitalization for COVID if taken early in course of illness. Prescription provided for this medication Paxlovid interacts with many medications. 1) If you do not need to take alprazolam, hold it while on paxlovid and 3 days after. If you need to take alprazolam, only take half of usual dose 2) Hold atorvastatin while on paxlovid and for 3 days after Antibiotics prescribed are okay with paxlovid You recevied a booster shot for covid vaccine while in hospital FOR DIVERTICULITIS Avoid constipation Avoid seeds nuts and popcorn High Fiber diet; As Fiber softens the stool and helps prevent constipation. It also can help decrease pressure in the colon and help prevent flare-ups of diverticulitis. High-fiber foods include: ? Beans and legumes ? Bran, whole wheat bread and whole grain cereals such as oatmeal ? Brown and wild rice ? Fruits such as apples, bananas and pears ? Vegetables such as broccoli, carrots, corn and squash ? Whole wheat pasta The target is to eat 25 to 30 grams of fiber daily. Drink at least 8 cups of fluid daily. Fluid will help soften your stool.Exercise also promotes bowel movement and helps prevent constipation. Follow-up as an outpatient for colonoscopy in 6 to 8 weeks versus a barium enema to rule out potential underlying neoplasia of the colon OTHER Dr Peck will complete [facility] paperwork for your son to stay with you given that we have been unable to discharge to a facility for rehabilitation. Home health has been arranged. Discharge Attestations Time Spent in Discharge Care*: greater than 30 min Specific Discharge Activities: educating patient, educating and/or supporting family/caregiver, discussing with immigration case manager/social workers/dc planners, documenting/other paperwork and evaluating patient/reviewing data Quality Metrics Clinical Quality Measures [ No reported AMI, CVA or VTE this stay] Coding Level of Care Code Acute [facility] note Diagnoses Diverticulitis K57.92 COVID-19 U07.1 Hyponatremia E87.1 Constipation K59.00 Diabetes E11.9 Diabetes mellitus type: type 2 Diabetes mellitus tank terminal gauger insulin use: without tank terminal gauger use Diabetes mellitus complication status: without complication PVD (peripheral vascular disease) I73.9 Benign essential hypertension I10 Chronic obstructive pulmonary emphysema J43.9 Esophageal dysmotility K22.4
== END 2022-01-19 15:48 | disposition home health service (06) | DRG 643 ==
LOC: ER 02:46 → MEDSURG 02:58 → ICU 11:56 → MEDSURG 01-17 15:20
PROVIDERS: Internal Medicine; Physician Assistant; Admitting Provider Internal Medicine; Emergency Provider Emergency Medicine; PCP Family Medicine; Visit Provider Hospitalist
DX: E22.2 Syndrome of inappropriate secretion of antidiuretic hormone (principal); U07.1 COVID-19; K57.32 Diverticulitis of large intestine without perforation or abscess without bleeding; E87.2 Acidosis; K22.4 Dyskinesia of esophagus; E11.51 Type 2 diabetes mellitus with diabetic peripheral angiopathy without gangrene; I25.10 Atherosclerotic heart disease of native coronary artery without angina pectoris; E03.9 Hypothyroidism, unspecified; I11.9 Hypertensive heart disease without heart failure; I51.9 Heart disease, unspecified; R11.2 Nausea with vomiting, unspecified; E78.2 Mixed hyperlipidemia; E11.42 Type 2 diabetes mellitus with diabetic polyneuropathy; R14.0 Abdominal distension (gaseous); E86.0 Dehydration; J43.9 Emphysema, unspecified; Z95.5 Presence of coronary angioplasty implant and graft; Z90.89 Acquired absence of other organs; Z90.49 Acquired absence of other specified parts of digestive tract; Z79.02 Long term (current) use of antithrombotics/antiplatelets
CPT/HCPCS: 36415; 36416; 51702; 70450; 71045; 74018; 74176; 74220; 80048; 80053; 81003; 82962; 83605; 83690; 83930; 83935; 84295; 84300; 84443; 85025; 87426; 92523; 92610; 93005; 96360; 96361; 96372; 97110; 97161; 97530; 99285; C9113; J1170; J1644; J1940; J1956; J2405; J2550; J7030; J7131; Q3014; S0030

== ENCOUNTER 2022-01-28 14:27 | Outpatient (CLI) | payer MEDICARE, OTHER, SELFPAY ==
[2022-01-28 17:02] LABS: Anion Gap 16.8 (5-19); Blood Urea Nitrogen 6 mg/dL (8-23); Carbon Dioxide 23 mmol/L (22-29); Chloride 87 mmol/L (98-107); Glucose 95 mg/dL (65-115); Osmolality Calculated 253 mOsm/kg (285-295); Potassium 3.8 mmol/L (3.5-5.1); Sodium 123 mmol/L (136-145)
== END 2022-01-28 14:28 | disposition home or self-care (01) ==
LOC: LAB 14:30
PROVIDERS: PCP Family Medicine; Visit Provider Family Medicine
DX: E87.6 Hypokalemia (principal)
CPT/HCPCS: 80048

== ENCOUNTER → 2022-02-14 09:59 | Outpatient (BNVA) | payer MEDICARE, OTHER, SELFPAY | PROVIDERS: PCP Family Medicine; Visit Provider Podiatrist Foot & Ankle Surgery | DX: I73.9 Peripheral vascular disease, unspecified (principal); L60.3 Nail dystrophy; E11.42 Type 2 diabetes mellitus with diabetic polyneuropathy; M20.42 Other hammer toe(s) (acquired), left foot; M20.41 Other hammer toe(s) (acquired), right foot | CPT/HCPCS: 11721 ==

== ENCOUNTER → 2022-02-21 13:38 | Outpatient (BNVA) | payer MEDICARE, OTHER, SELFPAY | PROVIDERS: PCP Family Medicine; Visit Provider Surgery | DX: Z09 Encounter for follow-up examination after completed treatment for conditions other than malignant neoplasm (principal); Z87.19 Personal history of other diseases of the digestive system | CPT/HCPCS: 99213 ==

== ENCOUNTER → 2022-03-01 12:01 | Outpatient (BNVA) | payer MEDICARE, OTHER, SELFPAY | PROVIDERS: PCP Family Medicine; Visit Provider Family Medicine | DX: E87.1 Hypo-osmolality and hyponatremia (principal) | CPT/HCPCS: 80048 ==

== ENCOUNTER → 2022-05-03 09:06 | Outpatient (BNVA) | payer MEDICARE, OTHER, SELFPAY | PROVIDERS: PCP Family Medicine; Visit Provider Podiatrist Foot & Ankle Surgery | DX: I73.9 Peripheral vascular disease, unspecified (principal); L60.3 Nail dystrophy; E11.42 Type 2 diabetes mellitus with diabetic polyneuropathy; M20.42 Other hammer toe(s) (acquired), left foot; M20.41 Other hammer toe(s) (acquired), right foot | CPT/HCPCS: 11721 ==

== ENCOUNTER → 2022-05-10 10:44 | Outpatient (BNVA) | payer MEDICARE, OTHER, SELFPAY | PROVIDERS: PCP Family Medicine; Visit Provider Family Medicine | DX: E11.42 Type 2 diabetes mellitus with diabetic polyneuropathy (principal) | CPT/HCPCS: 80053; 83036 ==

== ENCOUNTER → 2022-05-24 09:48 | Outpatient (BNVA) | payer MEDICARE, OTHER, SELFPAY | PROVIDERS: PCP Family Medicine; Visit Provider Internal Medicine Cardiovascular Disease | DX: I25.10 Atherosclerotic heart disease of native coronary artery without angina pectoris (principal); I73.9 Peripheral vascular disease, unspecified; R60.0 Localized edema; I77.810 Thoracic aortic ectasia; E78.2 Mixed hyperlipidemia; E11.9 Type 2 diabetes mellitus without complications; I10 Essential (primary) hypertension | CPT/HCPCS: 99214 ==

== ENCOUNTER → 2022-07-19 09:21 | Outpatient (BNVA) | payer MEDICARE, OTHER, SELFPAY | PROVIDERS: PCP Family Medicine; Visit Provider Podiatrist Foot & Ankle Surgery | DX: E11.8 Type 2 diabetes mellitus with unspecified complications (principal); I73.9 Peripheral vascular disease, unspecified; L60.3 Nail dystrophy; E11.42 Type 2 diabetes mellitus with diabetic polyneuropathy; M20.42 Other hammer toe(s) (acquired), left foot; M20.41 Other hammer toe(s) (acquired), right foot | CPT/HCPCS: 11721 ==

== ENCOUNTER → 2022-10-25 09:55 | Outpatient (BNVA) | payer MEDICARE, OTHER, SELFPAY | PROVIDERS: PCP Family Medicine; Visit Provider Podiatrist Foot & Ankle Surgery | DX: I73.9 Peripheral vascular disease, unspecified (principal); E11.8 Type 2 diabetes mellitus with unspecified complications; L60.3 Nail dystrophy; E11.42 Type 2 diabetes mellitus with diabetic polyneuropathy; M20.42 Other hammer toe(s) (acquired), left foot; M20.41 Other hammer toe(s) (acquired), right foot | CPT/HCPCS: 11721 ==

== ENCOUNTER → 2022-11-28 09:53 | Outpatient (BNVA) | payer MEDICARE, OTHER, SELFPAY | PROVIDERS: PCP Family Medicine; Visit Provider Internal Medicine Cardiovascular Disease | DX: I25.10 Atherosclerotic heart disease of native coronary artery without angina pectoris (principal); I10 Essential (primary) hypertension; E11.9 Type 2 diabetes mellitus without complications; E78.2 Mixed hyperlipidemia; I77.810 Thoracic aortic ectasia; J43.9 Emphysema, unspecified; I73.9 Peripheral vascular disease, unspecified | CPT/HCPCS: 99214 ==

== ENCOUNTER → 2022-12-06 11:46 | Outpatient (BNVA) | payer MEDICARE, OTHER, SELFPAY | PROVIDERS: PCP Family Medicine; Visit Provider Family Medicine | DX: E78.2 Mixed hyperlipidemia (principal); I25.10 Atherosclerotic heart disease of native coronary artery without angina pectoris; I10 Essential (primary) hypertension; E11.42 Type 2 diabetes mellitus with diabetic polyneuropathy; L60.3 Nail dystrophy; E83.52 Hypercalcemia; M70.62 Trochanteric bursitis, left hip | CPT/HCPCS: 80053; 80061; 82306; 83036; 84443; 85025 ==

== ENCOUNTER 2023-01-04 11:58 | Outpatient (CLI) | payer MEDICARE, OTHER, SELFPAY ==
--- NOTE | 2023-01-04 12:00 | CTR_ITS ---
PROCEDURE INFORMATION: Exam: CT Abdomen And Pelvis With Contrast Exam date and time: 01/04/2023 1:00 PM Age: 87 years old Clinical indication: Abdominal tenderness; Prior surgery; Surgery date: 6+ months; Surgery type: Appendix, hyst, gb, RT hip; Patient HX: HX of diverticulitis, from navel to left side abd this week; Additional info: Concern for ischemic bowel disease.No history of trauma or recent surgery is provided. TECHNIQUE: Imaging protocol: Computed tomography of the abdomen and pelvis with contrast. 257image(s) are provided. Radiation optimization: All CT scans at this facility use at least one of these dose optimization techniques: automated exposure control; mA and/or kV adjustment per patient size (includes targeted exams where dose is matched to clinical indication); or iterative reconstruction. Contrast material: OMNIPAQUE 350; Contrast volume: 85 ml; Contrast route: INTRAVENOUS (IV); Other technique: Axial images are available with sagittal and coronal reconstruction views. Automated dose exposure control is utilized. The DLP is 240.99. REPORTING DATA: Count of CT and Cardiac NM exams in prior 12 months: This patient has received 3 known CTs and 0 known cardiac nuclear medicine studies in the 12 months prior to the current study. COMPARISON: 1. CT abdomen pelvis wo con [id number] 01/15/2022 12:25 AM 2. CR XR KUB portable [id number] 01/17/2022 9:[address] abdomen pelvis wo con [id number] 01/11/2022 9:41 AM RADIATION DOSE METRICS: Total DLP (mGy-cm): 240.99 FINDINGS: Lungs: No lobar consolidation is appreciated. Liver: . There appears to be some marginal hepatic steatosis. Gallbladder and bile ducts: Cholecystectomy changes are present. The common bile duct appears similar at approximately 7.5 mm. No radiopaque obstructive calculus is currently appreciated.Distal most, ampullary level evaluation is limited. Pancreas: There is some minimal pancreatic ductal and cystic subcentimeter averaging with slight fatty replacement of the pancreas head similar overall. Spleen: Unremarkable. Adrenal glands: Unremarkable. Kidneys and ureters: There is relatively homogeneous renal parenchymal enhancement with no interval radiopaque obstructive calculus or hydronephrosis appreciated. There are some subcentimeter fluid dense simple appearing cystic changes similar overall. Stomach and bowel: Some aspects of the colon are undistended. This may also be peristaltic related.There is abundant stool present limiting mucosal detail evaluation.The bowel gas pattern appears nonobstructive. There is a small sliding-type hiatal hernia demonstrated with slight gastroesophageal fold thickening. There is some diverticulosis demonstrated. Appendix: The appendix is not appreciated with some calcific or clip type appearance and history of previous surgery. Intraperitoneal space: No free air or free fluid collections are appreciated. Vasculature: There are atherosclerotic densely calcific changes of the aorta with no interval saccular aneurysmal dilatation appreciated. Aortic branch vessel enhancement is overall demonstrated. There is some similar calcified plaque for example of the celiac trunk origin along with the accessory renal arterial averaging for example on the right. There is some mild noncalcified plaque of the origin of the superior mesenteric artery with overall patency demonstrated as well as distal contrast. Lymph nodes: There are subcentimeter predominant para-aortic and mesenteric lymph nodes overall present. Urinary bladder: The bladder is incompletely fluid filled for evaluation which may exagerate the wall thickness. This can also be seen with post inflammation sequela. Reproductive: There are hysterectomy changes present. Bones/joints: Osseous alignment is maintained.No interval displaced fracture or dislocation is appreciated.There is slightly decreased bone mineralization overall. There is a right hip prosthesis with similar alignment. This contributes to limiting streak artifact of the pelvic level. There is some multilevel spurring and disc space narrowing overall as well as some chronic appearing decreased superior endplate height at the T12 level. There are chronic advanced degenerative changes of the left hip demonstrated. Soft tissues: No radiopaque foreign body or subcutaneous emphysema is appreciated. Other findings: No other significant interval changes are appreciated. CT/CT abdomen pelvis w con* [id number] IMPRESSION: 1. The bowel gas pattern appears nonobstructive overall. There is chronic diverticulosis demonstrated with no interval abnormal small bowel dilatation or small bowel inflammatory related change. 2. The bladder is incompletely fluid filled for evaluation which may exagerate the wall thickness. This can also be seen with post inflammation sequela.
[2023-01-04] MEDS: iohexol 350 mg/mL 500 mL Btl (per mL) IV (13:04)
== END 2023-01-04 11:59 | disposition home or self-care (01) ==
PROVIDERS: PCP Family Medicine; Visit Provider Family Medicine
DX: R10.9 Unspecified abdominal pain (principal); R63.4 Abnormal weight loss; R11.2 Nausea with vomiting, unspecified
CPT/HCPCS: 74177; Q9967

== ENCOUNTER → 2023-01-24 10:30 | Outpatient (BNVA) | payer MEDICARE, OTHER, SELFPAY | PROVIDERS: PCP Family Medicine; Visit Provider Podiatrist Foot & Ankle Surgery | DX: E11.42 Type 2 diabetes mellitus with diabetic polyneuropathy (principal); I73.9 Peripheral vascular disease, unspecified; L60.3 Nail dystrophy; M20.42 Other hammer toe(s) (acquired), left foot; M20.41 Other hammer toe(s) (acquired), right foot | CPT/HCPCS: 11721 ==

== ENCOUNTER → 2023-03-07 10:02 | Outpatient (BNVA) | payer MEDICARE, OTHER, SELFPAY | PROVIDERS: PCP Family Medicine; Visit Provider Family Medicine | DX: R39.9 Unspecified symptoms and signs involving the genitourinary system (principal) | CPT/HCPCS: 81000; 87086 ==

== ENCOUNTER → 2023-04-05 11:15 | Outpatient (BNVA) | payer MEDICARE, OTHER, SELFPAY | PROVIDERS: PCP Family Medicine; Visit Provider Podiatrist Foot & Ankle Surgery | DX: I73.9 Peripheral vascular disease, unspecified; L60.3 Nail dystrophy; E11.42 Type 2 diabetes mellitus with diabetic polyneuropathy; M20.42 Other hammer toe(s) (acquired), left foot; M20.41 Other hammer toe(s) (acquired), right foot; L84 Corns and callosities | CPT/HCPCS: 11055; 11721 ==

== ENCOUNTER → 2023-04-11 14:00 | Outpatient (BNVA) | payer MEDICARE, OTHER, SELFPAY | PROVIDERS: PCP Family Medicine; Visit Provider Family Medicine | DX: E11.9 Type 2 diabetes mellitus without complications (principal); E78.2 Mixed hyperlipidemia; L60.3 Nail dystrophy; M79.89 Other specified soft tissue disorders; E11.42 Type 2 diabetes mellitus with diabetic polyneuropathy; I10 Essential (primary) hypertension | CPT/HCPCS: 80048; 83036; 84439; 84443 ==

== ENCOUNTER → 2023-06-07 13:57 | Outpatient (BNVA) | payer MEDICARE, OTHER, SELFPAY | PROVIDERS: PCP Family Medicine; Visit Provider Nurse Practitioner Family | DX: I25.10 Atherosclerotic heart disease of native coronary artery without angina pectoris (principal); I11.9 Hypertensive heart disease without heart failure | CPT/HCPCS: 99214 ==

== ENCOUNTER → 2023-06-26 16:01 | Outpatient (BNVA) | payer MEDICARE, OTHER, SELFPAY | PROVIDERS: PCP Family Medicine; Visit Provider Family Medicine | DX: R30.0 Dysuria (principal); I10 Essential (primary) hypertension; E21.0 Primary hyperparathyroidism; E83.52 Hypercalcemia; E03.9 Hypothyroidism, unspecified | CPT/HCPCS: 80048; 81000; 82310; 83735; 83970; 84439; 84443 ==

== ENCOUNTER → 2023-06-28 11:01 | Outpatient (BNVA) | payer MEDICARE, OTHER, SELFPAY | PROVIDERS: PCP Family Medicine; Visit Provider Podiatrist Foot & Ankle Surgery | DX: I73.9 Peripheral vascular disease, unspecified (principal); L60.3 Nail dystrophy; E11.42 Type 2 diabetes mellitus with diabetic polyneuropathy; M20.42 Other hammer toe(s) (acquired), left foot; M20.41 Other hammer toe(s) (acquired), right foot; L84 Corns and callosities; M76.72 Peroneal tendinitis, left leg | CPT/HCPCS: 11055; 11721; 99213 ==

== ENCOUNTER → 2023-07-25 11:15 | Outpatient (BNVA) | payer MEDICARE, OTHER, MEDICAID, SELFPAY | PROVIDERS: PCP Family Medicine; Visit Provider Podiatrist Foot & Ankle Surgery | DX: M79.672 Pain in left foot (principal); I25.10 Atherosclerotic heart disease of native coronary artery without angina pectoris; M10.9 Gout, unspecified; R00.2 Palpitations; I77.810 Thoracic aortic ectasia; E78.2 Mixed hyperlipidemia; I73.9 Peripheral vascular disease, unspecified; I10 Essential (primary) hypertension; E11.9 Type 2 diabetes mellitus without complications; R06.02 Shortness of breath; R60.0 Localized edema | CPT/HCPCS: 20600; 73630; 99214; J1100; J3301; J3490 ==

== ENCOUNTER → 2023-09-05 09:36 | Outpatient (BNVA) | payer MEDICARE, OTHER, MEDICAID, SELFPAY | PROVIDERS: PCP Family Medicine; Visit Provider Podiatrist Foot & Ankle Surgery | DX: I73.9 Peripheral vascular disease, unspecified (principal); L60.3 Nail dystrophy; E11.42 Type 2 diabetes mellitus with diabetic polyneuropathy | CPT/HCPCS: 11721 ==

== ENCOUNTER → 2023-09-26 11:35 | Outpatient (BNVA) | payer MEDICARE, OTHER, MEDICAID, SELFPAY | PROVIDERS: PCP Family Medicine; Visit Provider Internal Medicine Cardiovascular Disease | DX: I11.9 Hypertensive heart disease without heart failure (principal); R00.2 Palpitations; I77.810 Thoracic aortic ectasia; E78.2 Mixed hyperlipidemia; I25.10 Atherosclerotic heart disease of native coronary artery without angina pectoris; I73.9 Peripheral vascular disease, unspecified | CPT/HCPCS: 99214 ==

== ENCOUNTER → 2023-11-07 08:38 | Outpatient (BNVA) | payer MEDICARE, OTHER, MEDICAID, SELFPAY | PROVIDERS: PCP Family Medicine; Visit Provider Podiatrist Foot & Ankle Surgery | DX: I73.9 Peripheral vascular disease, unspecified (principal); L60.3 Nail dystrophy; E11.42 Type 2 diabetes mellitus with diabetic polyneuropathy; L97.321 Non-pressure chronic ulcer of left ankle limited to breakdown of skin; E11.621 Type 2 diabetes mellitus with foot ulcer | CPT/HCPCS: 11721; 99213 ==

== ENCOUNTER → 2023-11-29 11:15 | Outpatient (BNVA) | payer MEDICARE, OTHER, SELFPAY | PROVIDERS: PCP Family Medicine; Visit Provider Podiatrist Foot & Ankle Surgery | DX: I73.9 Peripheral vascular disease, unspecified; I87.2 Venous insufficiency (chronic) (peripheral); I83.023 Varicose veins of left lower extremity with ulcer of ankle; L97.922 Non-pressure chronic ulcer of unspecified part of left lower leg with fat layer exposed | CPT/HCPCS: 99213 ==

== ENCOUNTER → 2023-12-05 11:06 | Outpatient (BNVA) | payer MEDICARE, OTHER, SELFPAY | PROVIDERS: PCP Family Medicine; Visit Provider Podiatrist Foot & Ankle Surgery | DX: I73.9 Peripheral vascular disease, unspecified; I87.2 Venous insufficiency (chronic) (peripheral); I83.023 Varicose veins of left lower extremity with ulcer of ankle; L97.321 Non-pressure chronic ulcer of left ankle limited to breakdown of skin | CPT/HCPCS: 99213 ==

== ENCOUNTER → 2023-12-12 12:35 | Outpatient (BNVA) | payer MEDICARE, OTHER, SELFPAY | PROVIDERS: PCP Family Medicine; Visit Provider Nurse Practitioner Family | DX: L23.89 Allergic contact dermatitis due to other agents (principal); L57.0 Actinic keratosis; D22.61 Melanocytic nevi of right upper limb, including shoulder | CPT/HCPCS: 17000; 99204 ==

== ENCOUNTER 2023-12-21 09:39 | Emergency (ER) | payer MEDICARE, OTHER, MEDICAID, SELFPAY ==
[2023-12-21] VITALS (10 sets, daily range): BP systolic 122–145; BP diastolic 50–75; PULSE 76–82; RESP 17–32; TEMP 36.6; O2SAT 92–99; BMI 27.4
--- NOTE | 2023-12-21 10:00 | XRR_ITS ---
PROCEDURE INFORMATION: Exam: XR Chest Exam date and time: 12/21/2023 10:10 AM Age: 88 years old Clinical indication: Cough and fever; Additional info: Dyspnea/cough TECHNIQUE: Imaging protocol: Radiologic exam of the chest. Views: 1 view. COMPARISON: CR XR chest 1V portable [id number] 01/17/2022 8:02 AM FINDINGS: Lungs: Unremarkable. No consolidation. Pleural spaces: Unremarkable. No pleural effusion. No pneumothorax. Heart/Mediastinum: Unremarkable. No cardiomegaly. Bones/joints: Unremarkable. XR/XR chest 1V portable [id number] IMPRESSION: No acute findings.
--- NOTE | 2023-12-21 10:01 | ECG_ITS ---
[facility] Test Date: 2023-12-21 Pat Name: Cristi Vu Department: Room: Gender: Female Hris Administrator: : [id number] Requested By: Anupam Allen Order Number: [id number] Rosina MD: Shiela Steele M.D. Measurements Intervals [place] Rate: 76 P: 0 CT: 0 QRS: -10 QRSD: 86 T: 4 QT: 380 QTc: 429 Interpretive Statements SUPRAVENTRICULAR RHYTHM LOW QRS VOLTAGE IN PRECORDIAL LEADS [QRS DEFLECTION < 1.0 mV IN CHEST LEADS] POSSIBLE ANTERIOR MYOCARDIAL INFARCTION , OF INDETERMINATE AGE [30 ms Q WAVE IN V3/V4, OR R < 0.2 mV IN V4] Compared to ECG 01/17/2022 08:49:20 Supraventricular rhythm now present Low QRS voltage now present Myocardial infarct finding now present Sinus bradycardia no longer present First degree AV block no longer present T-wave abnormality no longer present Possible ischemia no longer present Electronically Signed On 12-21-2023 21:59:55 CDT by Shiela Steele M.D. [id number]
--- NOTE | 2023-12-21 10:10 | XRR_ITS ---
PROCEDURE INFORMATION: Exam: XR Left Ankle Exam date and time: 12/21/2023 10:53 AM Age: 88 years old Clinical indication: Pain; Ankle; Left TECHNIQUE: Imaging protocol: Radiologic exam of the left ankle. Views: 3 or more views. COMPARISON: CR XR foot LT min 3V* [id number] 07/25/2023 11:16 AM FINDINGS: Bones/joints: Mild demineralization. No acute osseous, joint, or soft tissue abnormality. Soft tissues: Normal. XR/XR ankle LT min 3V* [id number] IMPRESSION: No acute findings.
--- NOTE | 2023-12-21 10:10 | XRR_ITS ---
PROCEDURE INFORMATION: Exam: XR Left Hip Exam date and time: 12/21/2023 10:47 AM Age: 88 years old Clinical indication: Hip pain; Left hip TECHNIQUE: Imaging protocol: Radiologic exam of the left hip. Views: 2 or 3 views hip with pelvis when performed. COMPARISON: CT abdomen pelvis w con* [id number] 01/04/2023 1:00 PM FINDINGS: Bones/joints: Moderate articular surface narrowing and spurring. This is greatest medially rather than at the weight-bearing aspect of the joint. No fracture or dislocation. Flattening of the femoral head.. No acute fracture. Soft tissues: Unremarkable. XR/XR hip LT 2-3V wo/w pel* [id number] IMPRESSION: Degenerative changes.
--- NOTE | 2023-12-21 10:16 | ED_ITS ---
HPI - SOB/Dyspnea 2 General: Chief Complaint: Shortness of Breath/Dyspnea Stated Complaint: feels off, shaky Time Seen by Provider: 12/21/23 09:58 Source: patient Mode of arrival: ambulatory History of Present Illness: HPI Narrative: 88-year-old female presents emergency ro om complaint of feeling shaky and short of breath. Generally just not feeling well she is extremely anxious. She is complaining of pain to her left hip and left ankle. No recent trauma or fall. She was recently hospitalized for hyponatremia at [place] was discharged yesterday at the time of discharge she was discharged home on hydralazine she took a dose this morning and shortly after began feeling very shaky and uneasy. She denies any chest pain at this time. No recent fever sweats chills nausea vomiting or diarrhea. She does report recently having a cough with a lot of congestion but she is not able to cough anything up. She reports that when she was discharged from [facility] her sodium was up to 131, she is not sure how low it had gotten at the time of admission. MD elicited complaint: shortness of breath Onset (ago): minute(s) Exacerbating factors: nothing Relieving factors: nothing Associated symptoms: Reports chest congestion and cough; Deny abdominal pain, chest pain, diaphoresis, dizziness, extremity pain, fever(s), hemoptysis, lightheadedness, myalgias, nausea, orthopnea, palpitations, paresthesias, polydipsia, polyuria, rash, sense of impending doom, syncope or vomiting Treatment prior to arrival: none Review of Systems 2 Const: Denies: fever(s), chills or diaphoresis Card: Denies: chest pain, palpitations, lightheadedness, syncope or orthopnea Resp: Reports: chest congestion; Denies: dyspnea or hemoptysis GI: Denies: abdominal pain, nausea or vomiting : Denies: dysuria, urinary frequency or urinary urgency Musc: Denies: neck pain, back pain or extremity pain Skin/Breast: Denies: rash Neuro: Denies: dizziness Endo: Denies: polyuria or polydipsia PFSH ED 2 PFSH: Medical History Acquired hypothyroidism Type 2 diabetes mellitus, without long-term current use of insulin Diverticula of colon Poor compliance Chronic obstructive pulmonary emphysema Benign essential hypertension Diabetes Arrhythmia Diastolic dysfunction ASHD (arteriosclerotic heart disease) Mixed hyperlipidemia Dilated aortic root Intermittent palpitations Bilateral hip pain Polyneuropathy due to type 2 diabetes mellitus [place]oe, bilateral Onychodystrophy Bilateral edema of lower extremity dependent mostly Asymptomatic superficial varicosities of lower extremity, bilateral Vaginal prolapse PVD (peripheral vascular disease) Surgical History History of hip surgery Right RAZIA S/P coronary artery stent placement History of cholecystectomy H/O: hysterectomy History of tonsillectomy History of appendectomy S/P selective transsphenoidal pituitary adenomectomy Family History Father CAD (coronary artery disease) Mother Cancer Chronic kidney disease (CKD) Sister Diabetes Other Hypertension Denies family history of Clotting disorder Dementia Suicide Anesthesia complication Bleeding disorder Lung disease Stroke Social History Smoking and tobacco/nicotine status: never used tobacco/nicotine Alcohol intake: never Substance/Drug Use: never Household members: none Housing: Apartment Marital status: / Number of children: 5 Number of grandchildren: 8 Highest education level completed: 10th Grade service: No Current occupational status: retired Physical Exam 2 Const: GENERAL APPEARANCE: cooperative and comfortable O RIENTATION/CONSCIOUSNESS: Yes awake, Yes oriented to person, Yes oriented to place and Yes oriented to time HENMT: COMMON NORMALS: normocephalic, atraumatic and hearing grossly normal bilaterally HEAD & SCALP: normocephalic and atraumatic Resp: COMMON NORMALS: normal respiratory effort, No retractions, No use of accessory muscles and clear to auscultation bilaterally AUSCULTATION: clear to auscultation bilaterally Cardio: COMMON NORMALS: regular rate, regular rhythm and No murmurs present (Cardio) RATE: regular rate RHYTHM: regular rhythm GI: COMMON NORMALS: Soft to palpation and No hepatosplenomegaly present A USCULTATION: Yes normoactive bowel sounds PALPATION: Yes Soft to palpation, No Tenderness to palpation present (GI), No Guarding due to palpation present (GI) and Yes No hepatosplenomegaly present Extremity: OTHER: Left hip and ankle pain. Significant varicosities about the left ankle and foot no sign of deformity. Trace edema lower extremities Neuro: SENSORIUM/ORIENTATION: Yes oriented to person, Yes oriented to place and Yes oriented to time Skin: COMMON NORMALS: no rashes or lesions noted GENERAL SKIN EXAM: no rashes or lesions noted Course 2 Vital Signs: Vital signs: Vital Signs Temperature 97.8 F 12/21/23 09:45 Pulse Rate 80 12/21/23 13:40 Respiratory Rate 27 H 12/21/23 12:30 Blood Pressure 145/58 12/21/23 12:30 Pulse Oximetry 97 12/21/23 13:40 Oxygen Delivery Me thod Room Air 12/21/23 12:30 Oxygen Flow Rate 3 12/21/23 11:30 MDM - SOB/Dyspnea Medical Decision Making Cardiac enzymes are negative mild elevation white count symptoms are much better. EKG did not show any acute changes. She had denied any dysuria urgency or frequency. I think the shaking that she was having earlier is probably reaction to the hydralazine. She has chronic left ankle and hip pain x-rays show some arthritic changes but no acute fractures. Will discharge the patient home set her up for referral to orthopedics. Have her stop the hydralazine and amlodipine 10 mg daily and Toprol-XL 25 mg daily. Follow-up with her primary care doctor as soon as she is able to reevaluate blood pressure Medical Records I reviewed the patient's medical records. Lab Data I reviewed the patient's lab results. 12/21/23 10:30 12/21/23 10:30 Labs/Radiology: Radiology Impressions Chest X-Ray 12/21/23 10:00 IMPRESSION: No acute findings. Ankle X-Ray 12/21/23 10:10 IMPRESSION: No acute findings. Hip/Pelvis X-Ray 12/21/23 10:10 IMPRESSION: Degenerative changes. Laboratory Results WBC 11.71 10^3/uL (3.29-11.43) H 12/21/23 10:30 RBC 3.76 10^6/uL (3.85-5.65) L 12/21/23 10:30 Hgb 10.80 g/dL (11.27-16.99) L 12/21/23 10:30 Hct 32.6 % (36-47) L 12/21/23 10:30 MCV 86.7 fl (85-98) 12/21/23 10:30 MCH 28.7 pg (27-33) 12/21/23 10:30 MCHC 33.1 g/dL (30-55) 12/21/23 10:30 RDW 13.1 % (12.1-15.1) 12/21/23 10:30 Plt Count 270 10^3/cmm (157-399) 12/21/23 10:30 MPV 8.7 fL (7.4-10.4) 12/21/23 10:30 Neut % (Auto) 67.9 % 12/21/23 10:30 Lymph % (Auto) 22.3 % 12/21/23 10:30 [place] % (Auto) 8.0 % 12/21/23 10:30 Eos % (Auto) 0.9 % 12/21/23 10:30 Baso % (Auto) 0.4 % 12/21/23 10:30 Neut # (Auto) 7.95 10^3/uL (1.8-7.7) H 12/21/23 10:30 Lymph # (Auto) 2.6 10^3/uL (0.8-4.8) 12/21/23 10:30 [place] # (Auto) 0.9 10^3/uL (0.2-0.9) 12/21/23 10:30 Eos # (Auto) 0.1 10^3/uL (0.0-0.8) 12/21/23 10:30 Baso # (Auto) 0.1 10^3/uL (0.0-0.1) 12/21/23 10:30 Nucleated RBC % (auto) 0 % 12/21/23 10:30 Nucleated RBCs # 0.0 /100WBC 12/21/23 10:30 Sodium 133 mmol/L (136-145) L 12/21/23 10:30 Potassium 3.7 mmol/L (3.5-5.1) 12/21/23 10:30 Chloride 99 mmol/L (98-107) 12/21/23 10:30 Carbon Dioxide 21 mmol/L (22-29) L 12/21/23 10:30 Anion Gap 16.7 (5-19) 12/21/23 10:30 BUN 14 mg/dL (8-23) 12/21/23 10:30 Creatinine 0.5 mg/dL (0.5-0.9) 12/21/23 10:30 GFR Calculation Not Reportable 12/21/23 10:30 Glucose 138 mg/dL (65-115) H 12/21/23 10:30 Calculated Osmolality 279 mOsm/kg (285-295) L 12/21/23 10:30 Calcium 10.0 mg/dL (8.5-10.5) 12/21/23 10:30 Total Bilirubin 0.7 mg/dL (0.15-1.2) 12/21/23 10:30 AST 12 U/L (0-32) 12/21/23 10:30 ALT 7 U/L (0-33) 12/21/23 10:30 Alkaline Phosphatase 85 U/L (35-105) 12/21/23 10:30 Troponin T Baseline 21 ng/L (0-10) H 12/21/23 10:30 Troponin T 120 Minute 16.26 ng/L (0-10) H 12/21/23 12:16 Delta Troponin T -4.74 ABS# (0-10) L 12/21/23 12:16 Total Protein 6.0 g/dL (6.6-8.7) L 12/21/23 10:30 Albumin 3.7 g/dL (3.5-5.2) 12/21/23 10:30 Globulin 2.3 g/dL (1.3-4.6) 12/21/23 10:30 All radiology interpretation(s) finalized by discharge Discharge Plan Discharge Patient Disposition: Home Clinical Impression: Medication side effects, Chronic left hip pain, Hypertension Condition: Stable Prescriptions: New Toprol XL 25 mg tablet extended release 24 hr 25 mg PO DAILY Qty: 30 0RF amlodipine 10 mg tablet 10 mg PO DAILY Qty: 30 0RF Discontinued hydralazine 50 mg tablet 100 mg PO TID No Action nitroglycerin [Nitrostat] 0.4 mg tablet, sublingual 0.4 mg sublingual Q5M PRN (Reason: chest pain) Qty: 50 5RF Rx Instructions: do not exceed 3 doses per episode potassium chloride 20 mEq tablet extended release 20 meq PO DAILY Qty: 90 1RF diclofenac sodium 1 % gel See Rx Instructions .ROUTE .COMPLEX Qty: 100 2RF Dose Instruction: APPLY SMALL AMOUNT (2G) TO AFFECTED AREA UP TO TWICE A DAY Rx Instructions: APPLY SMALL AMOUNT (2G) TO AFFECTED AREA UP TO TWICE A DAY (DME) lancets [OneTouch UltraSoft 2 Lancet] 30 gauge misc See Rx Instructions .Route Qty: 100 0RF Rx Instructions: As directed (DME) OneTouch Ultra Test Strip See Rx Instructions .Route Qty: 100 3RF Rx Instructions: use in onetouch meter daily 90 day supply , Check daily. L.acidophilus-Bifido.longum [Probiotic Pearls] 15 mg (1 billion cell) Capsule,Delayed Release(Dr/Ec) 1 cap PO DAILY isosorbide dinitrate 20 mg tablet 40 mg PO TID clobetasol 0.05 % ointment See Rx Instructions .ROUTE .COMPLEX Rx Instructions: APPLY TO RED RASH ON LEFT ANKLE TWICE DAILY NEEDED. NOT FOR FACE, GROIN OR SKIN FOLDS. NO MORE THAN TWO WEEKS PER MONTH Senokot-S 8.6-50 mg tablet 1 tab PO BID clopidogrel 75 mg tablet 75 mg PO QAM levothyroxine 88 mcg tablet 88 mcg PO DAILY Protonix 40 mg tablet,delayed release (DR/EC) 40 mg PO DAILY PRN (Reason: Acid Reflux) Discharge Orders: Discharge ED (Routine); Ordered 12/21/23 Ordered By: Anupam De Paz Referrals: Elpidio Curry DO [Primary Care Provider] - Discharge Diet: Usual diet Discharge Activity: Limit activity as instructed Patient Instructions: Opioid Safety, Pain Management Activity Restrictions/Additional Instructions: Thank you for choosing [facility] for your healthcare needs today. It is very important that you follow up as instructed or that you return to the Emergency Department should you have concerns or if your condition changes or worsens in any way. You were seen today for side effects of hydralazine. Recommend you stop the hydralazine and start amlodipine 10 mg daily and Toprol XL 25 mg daily. Your sodium today was 133 while this is low it is not low enough to typically be symptomatic. Your cardiac enzymes and EKGs were normal. Would recommend that you follow-up with your primary care doctor within the next week. Coding Level of Care Code ED Civil Engineering Professor for Blaire Coto
[2023-12-21] MEDS: LORazepam 2 mg/mL INJ 10 mL MDV 1 MG IVP (10:33)
[2023-12-21] MEDS: morphine 4 mg/mL SDV 1 mL IVP (10:36)
[2023-12-21] MEDS: ondansetron 2 mg/ML SDV 2 mL 4 MG IVP (10:37)
[2023-12-21 10:41] LABS: Basophils # 0.1 10^3/uL (0.0-0.1); Basophils % 0.4 %; Eosinophils # 0.1 10^3/uL (0.0-0.8); Eosinophils % 0.9 %; Hematocrit 32.6 % (36-47); Lymphocytes # 2.6 10^3/uL (0.8-4.8); Lymphocytes % 22.3 %; Mean Corpuscular HGB Conc 33.1 g/dL (30-55); Mean Corpuscular Hemoglobin 28.7 pg (27-33); Mean Corpuscular Volume 86.7 fl (85-98); Mean Platelet Volume 8.7 fL (7.4-10.4); Monocytes # 0.9 10^3/uL (0.2-0.9); Neutrophils # 7.95 10^3/uL (1.8-7.7); Neutrophils % 67.9 %; Nucleated Red Blood Cells % 0 %; Platelet Count 270 10^3/cmm (157-399); Red Blood Count 3.76 10^6/uL (3.85-5.65); Red Cell Distribution Width 13.1 % (12.1-15.1); White Blood Count 11.71 10^3/uL (3.29-11.43)
--- NOTE | 2023-12-21 10:45 | PC.NURSE ---
PT PLACED ON 3L NASAL CANNULA DUE TO LOW OXYGEN SATURATION FROM MORPHINE AND ATIVAN. DR THAKKAR NOTIFIED.
[2023-12-21 10:57] LABS: Alanine Aminotransferase 7 U/L (0-33); Albumin Level 3.7 g/dL (3.5-5.2); Alkaline Phosphatase 85 U/L (35-105); Anion Gap 16.7 (5-19); Aspartate Amino Transferase 12 U/L (0-32); Blood Urea Nitrogen 14 mg/dL (8-23); Carbon Dioxide 21 mmol/L (22-29); Chloride 99 mmol/L (98-107); Globulin 2.3 g/dL (1.3-4.6); Glucose 138 mg/dL (65-115); Osmolality Calculated 279 mOsm/kg (285-295); Potassium 3.7 mmol/L (3.5-5.1); Sodium 133 mmol/L (136-145); Total Bilirubin 0.7 mg/dL (0.15-1.2); Troponin(5th) Baseline 21 ng/L (0-10)
--- NOTE | 2023-12-21 11:51 | PC.NURSE ---
PT PLACED BACK ON ROOM AIR. OXYGEN SATURATION 97% AT THIS TIME.
--- NOTE | 2023-12-21 12:11 | ECG_ITS ---
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 Measurements Intervals [place] Rate: 80 P: 83 [place]: 243 QRS: -10 QRSD: 73 T: -36 QT: 351 QTc: 407 Interpretive Statements SINUS RHYTHM WITH FIRST DEGREE AV BLOCK LOW QRS VOLTAGE IN PRECORDIAL LEADS [QRS DEFLECTION < 1.0 mV IN CHEST LEADS] POSSIBLE ANTERIOR MYOCARDIAL INFARCTION , OF INDETERMINATE AGE [30 ms Q WAVE IN V3/V4, OR R < 0.2 mV IN V4] Compared to ECG 12/21/2023 10:21:53 First degree AV block now present Supraventricular rhythm no longer present Myocardial infarct finding still present Electronically Signed On 12-21-2023 22:10:26 CDT by Shiela Steele M.D. [id number]
[2023-12-21 12:42] LABS: Troponin 5 2HR 16.26 ng/L (0-10)
[2023-12-21 12:43] LABS: Troponin 5 2HR Delta -4.74 ABS# (0-10)
--- NOTE | 2023-12-21 16:37 | DCPLANNER ---
messaged ortho for er f/u
== END 2023-12-21 13:42 | disposition home or self-care (01) ==
PROVIDERS: Emergency Provider Family Medicine; PCP Family Medicine
DX: M25.552 Pain in left hip (principal); M25.572 Pain in left ankle and joints of left foot; G89.29 Other chronic pain; R06.00 Dyspnea, unspecified; T50.905A Adverse effect of unspecified drugs, medicaments and biological substances, initial encounter; J43.9 Emphysema, unspecified; E11.42 Type 2 diabetes mellitus with diabetic polyneuropathy; E11.51 Type 2 diabetes mellitus with diabetic peripheral angiopathy without gangrene; I10 Essential (primary) hypertension; E78.2 Mixed hyperlipidemia; E03.9 Hypothyroidism, unspecified; Z79.899 Other long term (current) drug therapy; Z95.5 Presence of coronary angioplasty implant and graft; Z82.49 Family history of ischemic heart disease and other diseases of the circulatory system
CPT/HCPCS: 36415; 71045; 73502; 73610; 80053; 84484; 85025; 93005; 96374; 96375; 99285; J2060; J2270; J2405

== ENCOUNTER → 2024-01-02 14:51 | Outpatient (BNVA) | payer MEDICARE, OTHER, MEDICAID, SELFPAY | PROVIDERS: PCP Family Medicine; Visit Provider Dermatology | DX: C44.311 Basal cell carcinoma of skin of nose (principal); L23.89 Allergic contact dermatitis due to other agents | CPT/HCPCS: 99214 ==

== ENCOUNTER → 2024-02-06 08:43 | Outpatient (BNVA) | payer MEDICARE, OTHER, SELFPAY | PROVIDERS: PCP Family Medicine; Visit Provider Podiatrist Foot & Ankle Surgery | DX: I73.9 Peripheral vascular disease, unspecified (principal); E11.42 Type 2 diabetes mellitus with diabetic polyneuropathy; L60.3 Nail dystrophy; M20.41 Other hammer toe(s) (acquired), right foot; M20.42 Other hammer toe(s) (acquired), left foot; M21.41 Flat foot [pes planus] (acquired), right foot; M21.42 Flat foot [pes planus] (acquired), left foot | CPT/HCPCS: 99213 ==

== ENCOUNTER → 2024-04-02 14:33 | Outpatient (BNVA) | payer MEDICARE, OTHER, SELFPAY | PROVIDERS: PCP Family Medicine; Visit Provider Nurse Practitioner Family | DX: D48.5 Neoplasm of uncertain behavior of skin (principal); L57.0 Actinic keratosis; L81.4 Other melanin hyperpigmentation; L82.1 Other seborrheic keratosis | CPT/HCPCS: 11102; 17000; 99213 ==

== ENCOUNTER → 2024-04-03 10:54 | Outpatient (BNVA) | payer MEDICARE, OTHER, SELFPAY | PROVIDERS: PCP Family Medicine; Visit Provider Nurse Practitioner Family | DX: I25.10 Atherosclerotic heart disease of native coronary artery without angina pectoris (principal); I11.9 Hypertensive heart disease without heart failure | CPT/HCPCS: 99214 ==

== ENCOUNTER → 2024-04-17 09:55 | Outpatient (BNVA) | payer MEDICARE, OTHER, SELFPAY | PROVIDERS: PCP Family Medicine; Visit Provider Family Medicine | DX: R74.8 Abnormal levels of other serum enzymes (principal); E11.42 Type 2 diabetes mellitus with diabetic polyneuropathy; E21.0 Primary hyperparathyroidism; E03.9 Hypothyroidism, unspecified | CPT/HCPCS: 80053; 82310; 83036; 83970; 84439; 84443 ==

== ENCOUNTER → 2024-04-18 11:36 | Outpatient (BNVA) | payer MEDICARE, OTHER, SELFPAY | PROVIDERS: PCP Family Medicine; Visit Provider Dermatology | DX: C44.91 Basal cell carcinoma of skin, unspecified (principal); I10 Essential (primary) hypertension | CPT/HCPCS: 99213 ==

== ENCOUNTER → 2024-05-02 09:40 | Outpatient (BNVA) | payer MEDICARE, OTHER, SELFPAY | PROVIDERS: PCP Family Medicine; Visit Provider Dermatology | DX: C44.91 Basal cell carcinoma of skin, unspecified (principal); I10 Essential (primary) hypertension | CPT/HCPCS: 99213 ==

== ENCOUNTER → 2024-05-07 08:30 | Outpatient (BNVA) | payer MEDICARE, OTHER, SELFPAY | PROVIDERS: PCP Family Medicine; Visit Provider Podiatrist Foot & Ankle Surgery | DX: I73.9 Peripheral vascular disease, unspecified (principal); E11.42 Type 2 diabetes mellitus with diabetic polyneuropathy; L60.3 Nail dystrophy; M20.41 Other hammer toe(s) (acquired), right foot; M20.42 Other hammer toe(s) (acquired), left foot; M21.41 Flat foot [pes planus] (acquired), right foot; M21.42 Flat foot [pes planus] (acquired), left foot; L03.032 Cellulitis of left toe | CPT/HCPCS: 11721; 99213 ==

== ENCOUNTER → 2024-06-17 13:00 | Outpatient (BNVA) | payer MEDICARE, OTHER, SELFPAY | PROVIDERS: PCP Family Medicine; Visit Provider Family Medicine | DX: R30.0 Dysuria (principal) | CPT/HCPCS: 81000 ==

== ENCOUNTER → 2024-07-15 09:45 | Outpatient (BNVA) | payer MEDICARE, OTHER, SELFPAY | PROVIDERS: PCP Family Medicine; Visit Provider Podiatrist Foot & Ankle Surgery | DX: E11.8 Type 2 diabetes mellitus with unspecified complications (principal); I73.9 Peripheral vascular disease, unspecified; E11.42 Type 2 diabetes mellitus with diabetic polyneuropathy; L60.3 Nail dystrophy | CPT/HCPCS: 11721 ==

== ENCOUNTER → 2024-08-15 09:24 | Outpatient (BNVA) | payer MEDICARE, OTHER, SELFPAY | PROVIDERS: PCP Family Medicine; Visit Provider Dermatology | DX: L72.8 Other follicular cysts of the skin and subcutaneous tissue (principal); L57.8 Other skin changes due to chronic exposure to nonionizing radiation; C44.311 Basal cell carcinoma of skin of nose; L57.0 Actinic keratosis | CPT/HCPCS: 17000; 17282; 99213 ==

== ENCOUNTER → 2024-10-14 09:04 | Outpatient (BNVA) | payer MEDICARE, OTHER, SELFPAY | PROVIDERS: PCP Family Medicine; Visit Provider Podiatrist Foot & Ankle Surgery | DX: E11.8 Type 2 diabetes mellitus with unspecified complications (principal); L60.3 Nail dystrophy; I73.9 Peripheral vascular disease, unspecified; E11.42 Type 2 diabetes mellitus with diabetic polyneuropathy; L60.0 Ingrowing nail; L03.116 Cellulitis of left lower limb | CPT/HCPCS: 11721; 99214 ==

== ENCOUNTER → 2024-10-28 08:41 | Outpatient (BNVA) | payer MEDICARE, OTHER, SELFPAY | PROVIDERS: PCP Family Medicine; Visit Provider Podiatrist Foot & Ankle Surgery | DX: I73.9 Peripheral vascular disease, unspecified (principal); E11.42 Type 2 diabetes mellitus with diabetic polyneuropathy; L03.116 Cellulitis of left lower limb; M20.41 Other hammer toe(s) (acquired), right foot; M20.42 Other hammer toe(s) (acquired), left foot; M21.41 Flat foot [pes planus] (acquired), right foot; M21.42 Flat foot [pes planus] (acquired), left foot | CPT/HCPCS: 99213 ==

== ENCOUNTER → 2024-11-19 14:05 | Outpatient (BNVA) | payer MEDICARE, OTHER, SELFPAY | PROVIDERS: PCP Family Medicine; Visit Provider Dermatology | DX: D22.39 Melanocytic nevi of other parts of face (principal); L57.8 Other skin changes due to chronic exposure to nonionizing radiation; Z08 Encounter for follow-up examination after completed treatment for malignant neoplasm; Z85.828 Personal history of other malignant neoplasm of skin; L57.0 Actinic keratosis | CPT/HCPCS: 17000; 99213 ==

== ENCOUNTER → 2025-02-06 09:30 | Outpatient (BNVA) | payer MEDICARE, OTHER, SELFPAY | PROVIDERS: PCP Nurse Practitioner Family; Visit Provider Podiatrist Foot & Ankle Surgery | DX: E11.42 Type 2 diabetes mellitus with diabetic polyneuropathy (principal); L60.3 Nail dystrophy; M20.41 Other hammer toe(s) (acquired), right foot; M20.42 Other hammer toe(s) (acquired), left foot | CPT/HCPCS: 11721 ==

== ENCOUNTER → 2025-02-19 15:30 | Outpatient (BNVA) | payer MEDICARE, OTHER, SELFPAY | PROVIDERS: PCP Nurse Practitioner Family; Visit Provider Internal Medicine Cardiovascular Disease | DX: I25.10 Atherosclerotic heart disease of native coronary artery without angina pectoris (principal); I10 Essential (primary) hypertension; I73.9 Peripheral vascular disease, unspecified; Z95.5 Presence of coronary angioplasty implant and graft | CPT/HCPCS: 99214 ==

== ENCOUNTER → 2025-04-08 09:32 | Outpatient (BNVA) | payer MEDICARE, OTHER, SELFPAY | PROVIDERS: PCP Nurse Practitioner Family; Visit Provider Podiatrist Foot & Ankle Surgery | DX: E11.42 Type 2 diabetes mellitus with diabetic polyneuropathy (principal); L60.3 Nail dystrophy; M20.41 Other hammer toe(s) (acquired), right foot; M20.42 Other hammer toe(s) (acquired), left foot; M21.41 Flat foot [pes planus] (acquired), right foot; M21.42 Flat foot [pes planus] (acquired), left foot | CPT/HCPCS: 11721 ==

== ENCOUNTER → 2025-05-01 07:34 | Outpatient (BNVA) | payer MEDICARE, SELFPAY | PROVIDERS: PCP Nurse Practitioner Family; Visit Provider Podiatrist Foot & Ankle Surgery | DX: L60.0 Ingrowing nail (principal); L03.115 Cellulitis of right lower limb | CPT/HCPCS: 11730; 99214; J9999 ==

== ENCOUNTER → 2025-05-12 11:20 | Outpatient (BNVA) | payer MEDICARE, SELFPAY | PROVIDERS: PCP Nurse Practitioner Family; Visit Provider Podiatrist Foot & Ankle Surgery | DX: E11.42 Type 2 diabetes mellitus with diabetic polyneuropathy (principal); L60.3 Nail dystrophy; E11.8 Type 2 diabetes mellitus with unspecified complications; I73.9 Peripheral vascular disease, unspecified | CPT/HCPCS: 11721 ==

== ENCOUNTER → 2025-05-23 10:57 | Outpatient (BNVA) | payer MEDICARE, SELFPAY | PROVIDERS: PCP Nurse Practitioner Family; Visit Provider Dermatology | DX: D22.0 Melanocytic nevi of lip (principal); D22.39 Melanocytic nevi of other parts of face; L57.8 Other skin changes due to chronic exposure to nonionizing radiation; Z85.828 Personal history of other malignant neoplasm of skin; L57.0 Actinic keratosis | CPT/HCPCS: 17000; 99213 ==

== ENCOUNTER → 2025-06-16 10:38 | Outpatient (BNVA) | payer MEDICARE, OTHER, SELFPAY | PROVIDERS: PCP Nurse Practitioner Family; Visit Provider Podiatrist Foot & Ankle Surgery | DX: L60.8 Other nail disorders (principal); E11.8 Type 2 diabetes mellitus with unspecified complications; I73.9 Peripheral vascular disease, unspecified; E11.42 Type 2 diabetes mellitus with diabetic polyneuropathy; L60.3 Nail dystrophy | CPT/HCPCS: 99213 ==